=== PATIENT | female | born 1980 | race Caucasian/White ===

== ENCOUNTER → 2017-04-14 | Outpatient (CLI) | payer OTHER ==
[2016-05-05 13:43] VITALS: BP 132/90
[~2017-04-14] MED LIST: CETI10CA PO; CHOL500050 PO; CLON1TAB PO; CYCL10TA2 PO; DIAZ2TAB PO; DULO60CA6 PO; FOLI1TAB6 PO; IOHEXOL 180 MG/ML 10 ML VIAL. ONE; NAPR220C4 PO; OXYC-323 PO; OXYC5CAP3 PO; PANT40TA3 PO; PARO40TA45 PO; TIZA4CAP3 PO; TRAZ100T12 PO; TROS20TA2 PO; VENL75CA PO; ZOLP5TAB PO; methylPREDNISolone ACETATE 40 MG/ML VIAL. ONE; methylPREDNISolone ACETATE 80 MG/ML VIAL. ONE
--- NOTE | 2017-04-14 14:49 | PAIN ---
DATE OF SERVICE: 04/14/2017 PROGRESS NOTE FOR PAIN CLINIC DIAGNOSES: Lumbar radiculopathy with post-lumbar laminectomy syndrome. HISTORY OF PRESENT ILLNESS: The patient is a 36-year-old female, who returns for followup, last seen 11/19/2016. The patient had undergone caudal epidural steroid injection at that time with very good results about 75% improvement till the last 3-4 weeks. Pain is beginning to return in the low back and into the bilateral lower extremities, somewhat worse on the right than the left, also some pain in the base of the neck and left shoulder radiating to the posterior shoulder, arm to the elbow on the left side posteriorly. The patient reports this has been secondary has not been the result of any specific injury or action that she is aware of. Pain in the low back is her primary complaint, is sharp and tight shooting pain with constant aching pain, increasing with recent rainy weather that we had. No new motor or sensory deficits, no new bowel or bladder incontinence or other complaints. PHYSICAL EXAMINATION: VITAL SIGNS: The patient's blood pressure 126/94, pulse 81, respirations are 18, temperature 98.6 degrees Fahrenheit, height is 5 feet 7 inches, weighs 171 pounds. GENERAL: The patient is awake, alert, oriented, appropriate, very pleasant demeanor. HEENT: Head is normocephalic, atraumatic. Extraocular movements are intact and symmetrical. Oral cavity: Mucous membranes moist and pink. Dentition is intact. NECK: Shows anterior throat supple without palpable lymphadenopathy noted. Swallow reflex is symmetrical. CHEST: Shows normal on inspection. Breath sounds clear to auscultation bilaterally. HEART: Shows S1 and S2 clear. ABDOMEN: Soft, nontender, nondistended. No palpable organomegaly. No rebound or guarding demonstrated. BACK: Shows spine grossly midline. Normal appearing thoracic kyphosis. Some slight flattening of lumbar lordotic curvature. Well healed surgical scars noted in the lumbar distribution. Lumbar paraspinous muscle shows some moderate tenderness with palpation, but without radiation, without trigger points. No tenderness over the spinous processes, sacrum or sacroiliac regions. EXTREMITIES: Lower extremities show deep tendon reflexes at 2+ in the patellar and 1+ tendo calcaneus tendons. Motor exam is strong with 5/5 dorsiflexion, extension, quadriceps and hamstring flexion. Options were discussed with the patient and the patient's old chart was reviewed as her current medication regimen updated. Current review of systems updated today as well. We will proceed with the second Caudal approach epidural steroid injection with fluoroscopic guidance. Risks were again discussed including, but not limited to bleeding, infection, possibility of epidural hematoma, subsequent neurologic compromise, dural puncture, headaches, spinal cord and/or nerve damage, side effects of steroid medication and poor results regarding pain control. The patient understands and wishes to proceed. The patient will return to clinic in approximately 2 weeks for followup, was counseled on return appointment, activity level and side effects to be aware of. The patient also given refill of oxycodone and meloxicam and physical therapy ordered for her neck and left upper extremity. DIAGNOSES: Lumbar radiculopathy with post-lumbar laminectomy syndrome. PROCEDURE: Caudal approach epidural steroid injection using C-arm fluoroscopic guidance under sterile prep using local anesthetic. MEDICATION INJECTED: Depo-Medrol 120 mg plus 10 mL of preservative-free normal saline and 2 mL of Isovue contrast. CONDITION AT DISCHARGE: Stable. The patient tolerated procedure well, had no complications. LEE CA MD DR: ERIBERTO/arlen JOB#: [id number] / [id number]
== END | disposition home or self-care (01) ==
LOC: PNCL 13:09
PROVIDERS: ATTEND Anesthesiology
DX: M54.16 Radiculopathy, lumbar region (principal); M96.1 Postlaminectomy syndrome, not elsewhere classified; K21.9 Gastro-esophageal reflux disease without esophagitis; M19.90 Unspecified osteoarthritis, unspecified site; F41.9 Anxiety disorder, unspecified; Z87.440 Personal history of urinary (tract) infections; Z72.89 Other problems related to lifestyle
CPT/HCPCS: 62323; J1030; J1040

== ENCOUNTER 2017-10-16 17:01 | Emergency (ER) | payer OTHER ==
[~2017-10-16] VITALS: Ht 170.2 cm; Wt 74.8 kg
[~2017-10-16 17:01] MED LIST changes: -IOHEXOL 180 MG/ML 10 ML VIAL. ONE; +LORA10TA3 PO; +OXYC5CAP PO; -OXYC5CAP3 PO; -PARO40TA45 PO; +PARO40TA61 PO; -methylPREDNISolone ACETATE 40 MG/ML VIAL. ONE; -methylPREDNISolone ACETATE 80 MG/ML VIAL. ONE
[2017-10-16 17:15] VITALS: BP 145/84
[2017-10-16] MEDS ORDERED: LORazepam 1 MG TABLET PO ONE (17:30)
--- NOTE | 2017-10-16 17:34 | PHYS DOC ---
Past Medical History Past Medical History: Anxiety, Depression, Fibromyalgia, GERD Additional Past Medical Histor: DDD, Chronic Back Pain Past Surgical History: Cholecystectomy Additional Past Surgical Histo: back sx, ovarian cysts,exp. lap Alcohol Use: Occasionally Drug Use: None Adult General Chief Complaint Chief Complaint: LOWER BACK PAIN OR INJURY HPI HPI Patient is a 37 year old F who presents with increasing lower back pain and numbness and tingling to her growing. Patient also states she's having more difficulty starting urination and controlling her bowel movements. Patient states he symptoms have been progressive over the past week. Patient does have a history of chronic low back pain with no previous surgeries. Patient denies any fevers. Patient states she is weakness to her lower extremity is bilaterally. Patient denies any other symptoms. Review of Systems Review of Systems GEN: Denies fevers, chills, sweats HEENT: Denies blurred vision, sore throat CV: Denies chest pain RESP: Denies shortness of air, cough GI: Denies n/v/d NEURO: Denies confusion, dizziness MSK: Lower back pain All other systems were reviewed and found to be within normal limits, except as documented in this note. Current Medications Current Medications Current Medications Medications (Trade) Dose Ordered Sig/Dirk Start Time Stop Time Status Last Admin Dose Admin Acetaminophen/ Hydrocodone Bitart (Lortab 5/325) 1 tab 1X ONCE 10/16/17 20:15 10/16/17 20:16 DC 10/16/17 20:13 1 TAB Gadobutrol (Gadavist) 7.5 mmol 1X ONCE 10/16/17 19:15 10/16/17 19:16 DC 10/16/17 19:36 7.5 MMOL Lorazepam (Ativan) 2 mg 1X ONCE 10/16/17 17:30 10/16/17 17:31 DC 10/16/17 17:58 2 MG Allergies Allergies Allergies Coded Allergies Type Severity Reaction Last Updated Verified Penicillins Allergy Intermediate PALPITATIONS/HIVES 07/24/15 Yes Sulfa (Sulfonamide Antibiotics) Allergy Intermediate PALPITATIONS/HIVES Yes clarithromycin Allergy Intermediate palpitations/hives 08/11/14 Yes diphenhydramine Allergy Intermediate HEART RACES 02/28/16 Yes latex Allergy Intermediate Hives 08/11/14 No prochlorperazine edisylate Allergy Intermediate palpitaions/hives 08/11/14 Yes gabapentin Adverse Reaction Intermediate 11/19/16 Yes metaxalone Adverse Reaction Intermediate Palpitations 11/19/16 Yes pregabalin Adverse Reaction Intermediate Palpitations 11/19/16 Yes Physical Exam Physical Exam GEN.: No apparent distress. Alert and oriented. HEENT: Head is normocephalic, atraumatic NECK: Supple. LUNGS: CTAB. HEART: RRR, S1, S2 present. Peripheral pulses intact ABDOMEN: Soft, nontender. Positive bowel sounds. EXTREMITIES: Without any cyanosis. NEUROLOGIC: Normal speech, normal tone, numbness and tingling to the inner thighs bilaterally, muscle strength 4/5 to lower extremity bilaterally, good patellar reflexes bilaterally, straight leg raise bilaterally approximately 45 produces lower back pain, patient has good dorsi and plantar flexion with a good dorsal pedis pulse bilaterally PSYCHIATRIC: Normal affect, normal mood. SKIN: No ulcerations Current Patient Data Vital Signs Vital Signs Date Time Temp Pulse Resp B/P (MAP) Pulse Ox O2 Delivery O2 Flow Rate FiO2 10/16/17 20:13 16 98 Room Air 10/16/17 17:15 98.5 76 145/84 (104) 98.5 EKG EKG [] Radiology/Procedures Radiology/Procedures MRI L-spine: IMPRESSION: 1. Degenerative disc disease at L4-L5 and L5-S1 causing moderate bilateral neuroforamina narrowing at L5-S1 with suggestion of left sided L5-S1 disc protrusion abutting/impinging the traversing left S1 nerve. Clinically correlate for neurologic symptoms in this distribution. 2. No evidence of epidural abscess.[] Course & Med Decision Making Course & Med Decision Making Pertinent Labs and Imaging studies reviewed. (See chart for details) ED course: Patient was seen and examined emergency room MRI of the L-spine was ordered Patient is reexamined and updated on results of MRI 2109: Discussed CC/HP/PMH with Dr. Hawkins's [employer] Jazmine and recommends follow-up and steroids MDM: After reviewing the chart, CC/HPI/PMH, physical exam, [radiological results], I do not believe the patient has a emergent spinal cord condition warranting further workup and/or admission at this time. I do not believe the patient has spinal epidural abscess or cauda equina syndrome. On reexamination patient's feeling better and like to go home. Patient will follow-up with neurosurgery and call the office on Thursday. Additional verbal discharge instructions were provided to the patient and that if symptoms get worse or any new symptoms arise that are worrisome to the patient she is to return to the emergency room immediately [] Dragon Disclaimer Dragon Disclaimer This electronic medical record was generated, in whole or in part, using a voice recognition dictation system. Departure Departure Impression: Primary Impression: Sciatica Additional Impression: Lower back pain Disposition: HOME, SELF-CARE Condition: IMPROVED Referrals: DARRICK MENDEZ MD (PCP) BARTOLO HAWKINS MD Call the office on Thursday Patient Instructions: Back Pain in Additional Instructions: Please follow-up with Dr. Jj and call the office on Thursday Scripts Prednisone (PREDNISONE) 50 Mg Tablet 1 TAB PO DAILY for 5 Days, #5 TAB Prov: TOÑA VILLALOBOS DO 10/16/17 Problem Qualifiers TOÑA VILLALOBOS DO Oct 16, 2017 17:34
[2017-10-16] MEDS ORDERED: GADOBUTROL 7.5 MMOL/7.5 ML VIAL IV ONE (19:15)
[2017-10-16] MEDS ORDERED: HYDROcodone/APAP 5/325MG 1 TAB TABLET PO ONE (20:15)
--- NOTE | 2017-10-16 20:27 | RAD ---
MRI lumbar spine without and with IV contrast INDICATION: Rule out spinal epidural abscess of cauda equina. Low back pain, left leg tingling, trouble with urination and bowels. TECHNIQUE: Axial and sagittal T1, axial and sagittal T2, sagittal STIR weighted image sequences were obtained without IV contrast. After infusion of 7.5 mL of gadolinium based contrast, axial and sagittal T1-weighted image sequences were obtained. COMPARISON: None FINDINGS: 5 lumbar vertebral bodies. Lumbar spine is in normal anatomic alignment. No compression deformities. There is intervertebral disc height loss at L4-L5, L5-S1 with endplate sclerosis and Modic type II changes. The conus ends at the level of T12 vertebral body and demonstrates no abnormal signal. No subdural or epidural fluid collection. Segmental analysis: L1-L2: No disc bulge or herniation. Mild bilateral significant facet arthropathy. No neuroforamina narrowing. L2-L3: No disc bulge or herniation. Mild bilateral facet arthropathy. No neuroforamina narrowing. L3-L4: No disc bulge or herniation. Mild bilateral facet arthropathy. No neuroforamina narrowing. L4-L5: Mild circumferential disc bulge indenting anterior thecal sac. Moderate bilateral facet arthropathy. No neuroforamina narrowing. L5-S1: Circumferential disc bulge with broad-based central disc protrusion indenting anterior thecal sac. Moderate right facet arthropathy. Moderate bilateral neuroforamina narrowing. The protruded disc abuts the traversing left S1 nerve (series 4 image 6). No abnormal enhancing lesions. IMPRESSION: 1. Degenerative disc disease at L4-L5 and L5-S1 causing moderate bilateral neuroforamina narrowing at L5-S1 with suggestion of left sided L5-S1 disc protrusion abutting/impinging the traversing left S1 nerve. Clinically correlate for neurologic symptoms in this distribution. 2. No evidence of epidural abscess. Electronically signed by: Aidan Brown DO (10/16/2017 8:24 PM) [facility]
[2017-10-16] MEDS ORDERED: PRED50TA PO (21:21)
== END 2017-10-16 21:35 | disposition home or self-care (01) ==
LOC: ER 17:01
DX: M54.42 Lumbago with sciatica, left side (principal); M54.41 Lumbago with sciatica, right side; G89.29 Other chronic pain; F41.9 Anxiety disorder, unspecified; F32.9 Major depressive disorder, single episode, unspecified; M79.7 Fibromyalgia; K21.9 Gastro-esophageal reflux disease without esophagitis; Z88.0 Allergy status to penicillin; Z90.49 Acquired absence of other specified parts of digestive tract; Z88.2 Allergy status to sulfonamides; Z88.1 Allergy status to other antibiotic agents; Z88.8 Allergy status to other drugs, medicaments and biological substances; Z91.040 Latex allergy status
CPT/HCPCS: 72158; 96374; 99284; A9585

== ENCOUNTER → 2017-10-27 | Outpatient (CLI) | payer OTHER ==
[2017-10-16 17:15] VITALS: BP 145/84
[~2017-10-27] MED LIST changes: +IOHEXOL 180 MG/ML 10 ML VIAL. ONE; +PRED50TA PO; +methylPREDNISolone ACETATE 40 MG/ML VIAL. ONE; +methylPREDNISolone ACETATE 80 MG/ML VIAL. ONE
--- NOTE | 2017-10-27 23:10 | PAIN ---
DATE OF SERVICE: 10/27/2017 PROGRESS NOTE FOR PAIN CLINIC DIAGNOSES: Lumbar radiculopathy with post-lumbar laminectomy syndrome. HISTORY OF PRESENT ILLNESS: The patient is a 37-year-old female who returns for followup status post previous caudal epidural steroid injections, most recently in March of this year had recent visit for evaluation and preauthorization for additional injections. The patient has obtained this now and reports that since she was here last, she has some significant pain in her low back and left lower extremity radiating from the low back and the posterior gluteus, posterior thigh, lower leg with burning and tingling into the left foot as well, tingling, burning, stabbing, radiating becoming more constant and tight. She did go to the Emergency Department on the 16 October and they did an MRI scan at that time showing degenerative disk disease at L4-L5 and L5-S1 causing moderate bilateral neural foraminal narrowing at L5-S1 with suggestion of left-sided L5-S1 disk protrusion abutting and impinging the traversing left S1 nerve. The patient has had increased pain as well as reports of difficulty controlling bladder and bowels with significant urgency with each since the pain has gotten worse and traveling more into the left leg. The patient reports no other changes. She reports her pain as 10 on a scale of 10 at its worst, 7-8 on average and is a 6 at its least and is a 7 today. The patient reports no other changes. PHYSICAL EXAMINATION: VITAL SIGNS: The patient's blood pressure is 134/105, pulse 101, respirations 18, temperature 98.6 degrees Fahrenheit, height is 5 feet 7 inches, weight is 169 pounds. GENERAL: The patient is awake, alert, oriented, appropriate, very pleasant demeanor. HEENT: Head shows normocephalic, atraumatic. Extraocular movements are intact, symmetrical. Oral cavity shows mucous membranes moist and pink. Dentition is intact. NECK: Shows anterior throat supple without palpable lymphadenopathy noted. Swallow reflex symmetrical. CHEST: Shows normal on inspection. Breath sounds are clear to auscultation bilaterally. HEART: Shows S1, S2 clear. No murmurs auscultated. ABDOMEN: Soft, nontender, nondistended. No palpable organomegaly. No rebound or guarding demonstrated. BACK: Shows spine grossly in the midline with well-healed surgical scarring noted in the lumbar distribution with some mild flattening lumbar lordotic curvature. Paraspinous musculature shows symmetrical with inspection. Tenderness with palpation bilaterally, but without significant radiation. The patient has good rotational motion of lumbar spine, both laterally as well as extension and flexion without significant pain reported. LOWER EXTREMITIES: Show deep tendon reflexes at 2+ in the patellar, 1+ tendo-calcaneus tendons are equal. Motor exam is strong with 5/5 dorsiflexion, extension, quadriceps and hamstring flexion are symmetrical. Peripheral pulses are 2+ posterior tibial and dorsalis pedis pulses. No peripheral edema is noted bilaterally. Options were discussed with the patient. The patient's old chart was reviewed as her current medication regimen updated. Current review of systems updated today as well. We will proceed with the caudal approach epidural steroid injections as the first in this series. Risks were again discussed including, but not limited to bleeding, infection, possibility of epidural hematoma and subsequent neurological compromise, dural punctures, headaches, spinal cord and/or nerve damage, side effects of steroid medication and poor results regarding pain control. The patient understands and wished to proceed. The patient will return to the clinic in approximately 2 weeks for followup. She was counseled to return appointment, activity level and side effects to be aware of. DIAGNOSES: Lumbar radiculopathy with post-lumbar laminectomy syndrome. PROCEDURE: Caudal approach epidural steroid injection using C-arm fluoroscopic guidance under sterile prep and drape using local anesthetic. MEDICATION INJECTED: A total of 120 mg Depo-Medrol plus 10 mL preservative-free normal saline and 2 mL of Isovue contrast. CONDITION AT DISCHARGE: Stable. The patient tolerated the procedure well, had no complications. LEE CA MD DR: ERIBERTO/arlen JOB#: [id number] / [id number]
== END ==
LOC: PNCL 13:11
PROVIDERS: ATTEND Anesthesiology
DX: M54.16 Radiculopathy, lumbar region (principal); M96.1 Postlaminectomy syndrome, not elsewhere classified; K21.9 Gastro-esophageal reflux disease without esophagitis; Z87.442 Personal history of urinary calculi; Z87.440 Personal history of urinary (tract) infections; M19.90 Unspecified osteoarthritis, unspecified site; F41.9 Anxiety disorder, unspecified
CPT/HCPCS: 62323; J1030; J1040

== ENCOUNTER → 2018-01-14 | Outpatient (CLI) | payer OTHER | END | disposition home or self-care (01) | LOC: PNCL 14:16 | DX: M54.16 Radiculopathy, lumbar region (principal) | CPT/HCPCS: 99212 ==

== ENCOUNTER → 2018-04-12 | Outpatient (CLI) | payer OTHER ==
[~2018-04-12] MED LIST changes: -CETI10CA PO; -CHOL500050 PO; -CLON1TAB PO; -CYCL10TA2 PO; -DIAZ2TAB PO; -DULO60CA6 PO; -FOLI1TAB6 PO; +IOHEXOL 180 MG/ML 10 ML VIAL.; -IOHEXOL 180 MG/ML 10 ML VIAL. ONE; -LORA10TA3 PO; -NAPR220C4 PO; -OXYC-323 PO; -OXYC5CAP PO; -PANT40TA3 PO; -PARO40TA61 PO; -PRED50TA PO; -TIZA4CAP3 PO; -TRAZ100T12 PO; -TROS20TA2 PO; -VENL75CA PO; -ZOLP5TAB PO; +methylPREDNISolone ACETATE 40 MG/ML VIAL.; -methylPREDNISolone ACETATE 40 MG/ML VIAL. ONE; +methylPREDNISolone ACETATE 80 MG/ML VIAL.; -methylPREDNISolone ACETATE 80 MG/ML VIAL. ONE
== END | disposition home or self-care (01) ==
LOC: PNCL 13:20
DX: M54.16 Radiculopathy, lumbar region (principal); M96.1 Postlaminectomy syndrome, not elsewhere classified; K21.9 Gastro-esophageal reflux disease without esophagitis; F41.9 Anxiety disorder, unspecified; Z87.442 Personal history of urinary calculi; Z87.440 Personal history of urinary (tract) infections; Z88.0 Allergy status to penicillin; Z88.1 Allergy status to other antibiotic agents; Z88.8 Allergy status to other drugs, medicaments and biological substances; Z91.040 Latex allergy status; Z88.6 Allergy status to analgesic agent; M79.7 Fibromyalgia; M19.90 Unspecified osteoarthritis, unspecified site; Z72.89 Other problems related to lifestyle; K08.409 Partial loss of teeth, unspecified cause, unspecified class; Z98.890 Other specified postprocedural states
CPT/HCPCS: 62323; J1030; J1040; Q9965

== ENCOUNTER → 2018-07-06 | Outpatient (CLI) | payer OTHER | END | disposition home or self-care (01) | LOC: PNCL 11:30 | DX: M54.16 Radiculopathy, lumbar region (principal); N18.9 Chronic kidney disease, unspecified; K21.9 Gastro-esophageal reflux disease without esophagitis; Z87.440 Personal history of urinary (tract) infections; Z90.49 Acquired absence of other specified parts of digestive tract | CPT/HCPCS: 99212 ==

== ENCOUNTER → 2018-07-08 | Outpatient (CLI) | payer OTHER | END | disposition home or self-care (01) | LOC: KCIC MRI 15:50 | DX: M50.122 Cervical disc disorder at C5-C6 level with radiculopathy (principal); Z88.0 Allergy status to penicillin; Z88.1 Allergy status to other antibiotic agents; F41.9 Anxiety disorder, unspecified; K21.9 Gastro-esophageal reflux disease without esophagitis; Z91.040 Latex allergy status; Z88.2 Allergy status to sulfonamides; Z88.8 Allergy status to other drugs, medicaments and biological substances; Z88.6 Allergy status to analgesic agent; Z87.442 Personal history of urinary calculi; Z87.440 Personal history of urinary (tract) infections; M19.90 Unspecified osteoarthritis, unspecified site; M79.7 Fibromyalgia; Z72.89 Other problems related to lifestyle; Z79.899 Other long term (current) drug therapy; Z90.49 Acquired absence of other specified parts of digestive tract | CPT/HCPCS: 72141 ==

== ENCOUNTER 2018-07-26 08:40 | Emergency (ER) | payer OTHER ==
[~2018-07-26] VITALS: Ht 170.2 cm; Wt 74.8 kg
[~2018-07-26 08:40] MED LIST changes: +CETI10CA PO; +CHOL500050 PO; +CLON1TAB PO; +CYCL10TA2 PO; +DIAZ2TAB PO; +DULO60CA6 PO; +FOLI1TAB6 PO; -IOHEXOL 180 MG/ML 10 ML VIAL.; +LORA10TA3 PO; +NAPR220C4 PO; +OXYC-323 PO; +OXYC5CAP PO; +PANT40TA3 PO; +PARO40TA61 PO; +PRED50TA PO; +TIZA4CAP3 PO; +TRAZ-86 PO; +TROS20TA2 PO; +VENL75CA PO; +ZOLP5TAB PO; -methylPREDNISolone ACETATE 40 MG/ML VIAL.; -methylPREDNISolone ACETATE 80 MG/ML VIAL.
--- NOTE | 2018-07-26 09:08 | PHYS DOC ---
Past Medical History Past Medical History: Anxiety, Depression, Fibromyalgia, GERD Additional Past Medical Histor: DDD, Chronic Back Pain Past Surgical History: Cholecystectomy Additional Past Surgical Histo: back sx, ovarian cysts,exp. lap Alcohol Use: Occasionally Drug Use: None Adult General Chief Complaint Chief Complaint: FLANK PAIN HPI HPI Patient is a 38-year-old female who presents to the emergency department for evaluation. She states that last night she felt that she had to urinate was unable to do so. She states that this morning she tried very hard to urinate but was unable to do so. She states that this morning she also awakened and was having some left-sided flank pain. She has not had any dysuria or gross hematuria, but she states in the past historically she has been prone to UTIs. She denies any vaginal bleeding or discharge, or concern for STDs. She states her LMP was about 3-1/2 weeks ago. She has not had any fevers or chills. She has not had similar symptoms to this in the past. Other than her regular medications she denies any new medications or [id number] medications. There are no alleviating, or exacerbating factors to her symptoms. Review of Systems Review of Systems Constitutional: Denies fever or chills [] Eyes: Denies change in visual acuity, redness, or eye pain [] HENT: Denies nasal congestion or sore throat [] Respiratory: Denies cough or shortness of breath [] Cardiovascular: The patient denies any shortness of breath, chest pain, palpitations, or orthopnea [] GI: Denies nausea, vomiting, bloody stools or diarrhea [] : Denies dysuria or hematuria. Reports that her vaginal area felt swollen today due to straining. [] Musculoskeletal: Denies back pain or joint pain [] Integument: Denies rash or skin lesions [] Neurologic: Denies headache, focal weakness or sensory changes [] Endocrine: Denies polyuria or polydipsia [] All other systems were reviewed and found to be within normal limits, except as documented in this note. Current Medications Current Medications Current Medications Medications (Trade) Dose Ordered Sig/Dirk Start Time Stop Time Status Last Admin Dose Admin Hydroxyzine Pamoate (Vistaril) 25 mg PRN Q6HRS PRN 07/26/18 11:00 07/26/18 11:15 25 MG Ketorolac Tromethamine (Toradol 30mg Vial) 30 mg 1X ONCE 07/26/18 09:15 07/26/18 09:16 DC 07/26/18 09:31 30 MG Methylprednisolone Sodium Succinate (SOLU-Medrol 125MG VIAL) 125 mg 1X ONCE 07/26/18 11:00 07/26/18 11:03 DC 07/26/18 11:00 125 MG Morphine Sulfate (Morphine Sulfate) 4 mg 1X ONCE 07/26/18 10:45 07/26/18 10:46 DC 07/26/18 10:52 4 MG Sodium Chloride 1,000 ml @ 1,000 mls/hr Q1H 07/26/18 09:15 07/26/18 10:14 DC 07/26/18 09:28 1,000 MLS/HR Tamsulosin HCl (Flomax) 0.4 mg 1X ONCE 07/26/18 10:45 07/26/18 10:46 DC 07/26/18 10:52 0.4 MG Allergies Allergies Allergies Coded Allergies Type Severity Reaction Last Updated Verified Penicillins Allergy Intermediate PALPITATIONS/HIVES 07/24/15 Yes Sulfa (Sulfonamide Antibiotics) Allergy Intermediate PALPITATIONS/HIVES Yes clarithromycin Allergy Intermediate palpitations/hives 08/11/14 Yes diphenhydramine Allergy Intermediate HEART RACES 02/28/16 Yes latex Allergy Intermediate Hives 08/11/14 No prochlorperazine edisylate Allergy Intermediate palpitaions/hives 08/11/14 Yes gabapentin Adverse Reaction Intermediate 11/19/16 Yes metaxalone Adverse Reaction Intermediate Palpitations 11/19/16 Yes pregabalin Adverse Reaction Intermediate Palpitations 11/19/16 Yes Physical Exam Physical Exam PHYSICAL EXAM: CONSTITUTIONAL: Well developed, well nourished HEAD: normocephalic, atraumatic EENT: PERRL, EOMI. Conjunctivae normal color, sclerae non-icteric; moist mucous membranes. NECK: Supple, non-tender; no meningismus. LUNGS: Lungs CTA, breathing even and unlabored. Normal air movement. HEART: Regular rate and rhythm, no murmur CHEST: No deformity; non-tender ABDOMEN: The abdomen is soft, there is mild tenderness to palpation diffusely in the left mid and lower abdomen as well as the suprapubic area, without rebound or guarding. Normal bowel sounds are present. The remainder the abdomen is soft and non-tender, no masses or bruits. EXTREM: Normal ROM; no deformity, no calf tenderness. Normal pulses palpable in all extremities. There is no pedal edema. SKIN: No rash; no diaphoresis NEURO: Alert; normal speech and cognition; CN's grossly intact; strength grossly intact without focal deficit. BACK: There is mild left-sided CVA TTP. GENITOURINARY: Normal external genitalia, without any evidence of edema or other abnormality. Inspection was performed in the presence of the patient's nurse, Stacy. Current Patient Data Vital Signs Vital Signs Date Time Temp Pulse Resp B/P (MAP) Pulse Ox O2 Delivery O2 Flow Rate FiO2 07/26/18 10:52 16 07/26/18 09:10 98.6 80 154/97 (116) 97 Room Air 98.6 Lab Values Laboratory Tests Test 07/26/18 09:12 07/26/18 09:22 07/26/18 10:15 Urine Collection Type Unknown Urine Color Yellow Urine Clarity Clear Urine pH 6.0 Urine Specific [place] 1.010 Urine Protein Negative mg/dL (NEG-TRACE) Urine Glucose (UA) Negative mg/dL (NEG) Urine Ketones (Stick) Negative mg/dL (NEG) Urine Blood Small (NEG) Urine Nitrite Negative (NEG) Urine Bilirubin Negative (NEG) Urine Urobilinogen Dipstick 0.2 mg/dL (0.2 mg/dL) Urine Leukocyte Esterase Negative (NEG) Urine RBC 1-2 /HPF (0-2) Urine WBC Occ /HPF (0-4) Urine Squamous Epithelial Cells Mod /LPF Urine Bacteria Few /HPF (0-FEW) Urine Mucus Mod /LPF POC Urine HCG, Qualitative Hcg negative (Negative) White Blood Count 9.0 x10^3/uL (4.0-11.0) Red Blood Count 4.44 x10^6/uL (3.50-5.40) Hemoglobin 13.8 g/dL (12.0-15.5) Hematocrit 40.4 % (36.0-47.0) Mean Corpuscular Volume 91 fL (79-100) Mean Corpuscular Hemoglobin 31 pg (25-35) Mean Corpuscular Hemoglobin Concent 34 g/dL (31-37) Red Cell Distribution Width 13.1 % (11.5-14.5) Platelet Count 299 x10^3/uL (140-400) Neutrophils (%) (Auto) 50 % (31-73) Lymphocytes (%) (Auto) 41 % (24-48) Monocytes (%) (Auto) 7 % (0-9) Eosinophils (%) (Auto) 1 % (0-3) Basophils (%) (Auto) 1 % (0-3) Neutrophils # (Auto) 4.5 x10^3uL (1.8-7.7) Lymphocytes # (Auto) 3.7 x10^3/uL (1.0-4.8) Monocytes # (Auto) 0.6 x10^3/uL (0.0-1.1) Eosinophils # (Auto) 0.1 x10^3/uL (0.0-0.7) Basophils # (Auto) 0.1 x10^3/uL (0.0-0.2) Sodium Level 139 mmol/L (136-145) Potassium Level 3.6 mmol/L (3.5-5.1) Chloride Level 103 mmol/L (98-107) Carbon Dioxide Level 27 mmol/L (21-32) Anion Gap 9 (6-14) Blood Urea Nitrogen 8 mg/dL (7-20) Creatinine 1.0 mg/dL (0.6-1.0) Estimated GFR (Cockcroft-Gault) 61.7 BUN/Creatinine Ratio 8 (6-20) Glucose Level 96 mg/dL (70-99) Calcium Level 9.1 mg/dL (8.5-10.1) Total Bilirubin 0.9 mg/dL (0.2-1.0) Aspartate Amino Transferase (AST) 26 U/L (15-37) Alanine Aminotransferase (ALT) 50 U/L (14-59) Alkaline Phosphatase 75 U/L (46-116) Total Protein 8.1 g/dL (6.4-8.2) Albumin 4.5 g/dL (3.4-5.0) Albumin/Globulin Ratio 1.3 (1.0-1.7) Lipase 249 U/L (73-393) Laboratory Tests 07/26/18 10:15 Laboratory Tests 07/26/18 10:15 EKG EKG [] Radiology/Procedures Radiology/Procedures [PROCEDURE: CT ABDOMEN PELVIS WO CONTRAST CT ABDOMEN PELVIS WO CONTRAST dated 07/26/2018 9:55 AM Indication: Pain.left flank pain prior scan sent. Comparison: 01/24/2016. Technique: Contiguous axial imaging of the abdomen and pelvis performed without the administration of intravenous contrast. One or more of the following individualized dose reduction techniques were utilized for this examination: 1. Automated exposure control 2. Adjustment of the mA and/or kV according to patient size 3. Use of iterative reconstruction technique Findings: Limited images of lung bases are clear. Heart size within normal limits. No pleural or pericardial effusion. Liver is of diffuse low density, compatible with fatty infiltration. No apparent mass. Biliary tree normal in caliber. The gallbladder is surgically absent. Spleen is normal in size. Pancreas, adrenal glands unremarkable. There is a 3 mm calcific stone at the left UVJ with mild proximal dilation of the left ureter and left pelvicalyceal system. No calcific stone within the substance of either kidney. No right ureteral stone or right hydronephrosis. Unopacified GI tract normal in caliber and contour. No focal bowel wall thickening. No inflammatory stranding in the mesentery. The appendix is normal in caliber. No ascites or lymphadenopathy. Abdominal aorta normal in caliber. Images of pelvis show nondistended urinary bladder. Uterus and adnexa are unremarkable. No free pelvic fluid or pelvic lymphadenopathy. Bone windows show no acute findings. Mild multilevel spondylosis. IMPRESSION: 1. There is a 3 mm calcific stone at the left UVJ with mild obstructive uropathy. 2. Mild fatty infiltration of the liver. 3. Status post cholecystectomy. ] Course & Med Decision Making Course & Med Decision Making Pertinent Labs and Imaging studies reviewed. (See chart for details) [11:45 AM: The patient's condition remained stable, she is feeling much better at this time. She did develop a rash after being given morphine, and was treated with antihistamines and a dose of steroids. I discussed test results, the need for close urology follow-up, straining her urine, and return precautions. Dragon Disclaimer Dragon Disclaimer This electronic medical record was generated, in whole or in part, using a voice recognition dictation system. Departure Departure Impression: Primary Impression: Renal stone Disposition: 01 HOME, SELF-CARE Condition: STABLE Referrals: NO PCP (PCP) Patient Instructions: Kidney Stones Additional Instructions: Ibuprofen 400-600 mg every 6 hours as needed for pain. Use the prescribed pain medication as needed for pain not controlled by ibuprofen. Strain your urine. If you find a kidney stone, bring it to your urology follow- up appointment, as this may help the urologist to determine what is causing the stone what you might be able to do to prevent this from happening in the future. Scripts Hydrocodone/Apap 5-325 (NORCO 5-325 TABLET) 1 Each Tablet 1-2 TAB PO Q4-6HRS, #20 TAB Prov: ALEX KEYS MD 07/26/18 Tamsulosin Hcl (FLOMAX) 0.4 Mg Cap.er.24h 0.4 MG PO DAILY for 14 Days, #14 TAB Prov: ALEX KEYS MD 07/26/18 ALEX KEYS MD Jul 26, 2018 09:08
[2018-07-26] MEDS ORDERED: IV NORMAL SALINE 1000ML BAG 1,000 ML IV SCH (09:15)
[2018-07-26] MEDS ORDERED: KETOROLAC 30 MG/ML VIAL. IV ONE (09:15)
[2018-07-26 09:45] LABS: BILIRUBIN,URINE NEGATIVE (NEG); CLARITY,URINE CLEAR; COLOR,URINE YELLOW; NITRITE,URINE NEGATIVE (NEG); PROTEIN,URINE NEGATIVE (NEG-TRACE); UROBILINOGEN,URINE 0.2 mg/dL (0.2 mg/dL)
[2018-07-26 10:10] LABS: BACTERIA,URINE FEW /HPF (0-FEW); SQUAMOUS EPITHELIAL CELL,UR MOD /LPF; WBC,URINE OCC /HPF (0-4)
--- NOTE | 2018-07-26 10:20 | RAD ---
CT ABDOMEN PELVIS WO CONTRAST dated 07/26/2018 9:55 AM Indication: Pain.left flank pain prior scan sent. Comparison: 01/24/2016. Technique: Contiguous axial imaging of the abdomen and pelvis performed without the administration of intravenous contrast. One or more of the following individualized dose reduction techniques were utilized for this examination: 1. Automated exposure control 2. Adjustment of the mA and/or kV according to patient size 3. Use of iterative reconstruction technique Findings: Limited images of lung bases are clear. Heart size within normal limits. No pleural or pericardial effusion. Liver is of diffuse low density, compatible with fatty infiltration. No apparent mass. Biliary tree normal in caliber. The gallbladder is surgically absent. Spleen is normal in size. Pancreas, adrenal glands unremarkable. There is a 3 mm calcific stone at the left UVJ with mild proximal dilation of the left ureter and left pelvicalyceal system. No calcific stone within the substance of either kidney. No right ureteral stone or right hydronephrosis. Unopacified GI tract normal in caliber and contour. No focal bowel wall thickening. No inflammatory stranding in the mesentery. The appendix is normal in caliber. No ascites or lymphadenopathy. Abdominal aorta normal in caliber. Images of pelvis show nondistended urinary bladder. Uterus and adnexa are unremarkable. No free pelvic fluid or pelvic lymphadenopathy. Bone windows show no acute findings. Mild multilevel spondylosis. IMPRESSION: 1. There is a 3 mm calcific stone at the left UVJ with mild obstructive uropathy. 2. Mild fatty infiltration of the liver. 3. Status post cholecystectomy. Electronically signed by: Frank Ball MD (07/26/2018 10:18 AM) [id number]
[2018-07-26 10:24] LABS: BASO # 0.1 x10^3/uL (0.0-0.2); BASO % 1 % (0-3); EOS # 0.1 x10^3/uL (0.0-0.7); EOS % 1 % (0-3); HEMATOCRIT 40.4 % (36.0-47.0); HEMOGLOBIN 13.8 g/dL (12.0-15.5); LYMPH # 3.7 x10^3/uL (1.0-4.8); LYMPH % 41 % (24-48); MEAN CORPUSCULAR HEMOGLOBIN 31 pg (25-35); MEAN CORPUSCULAR HGB CONC 34 g/dL (31-37); MEAN CORPUSCULAR VOLUME 91 fL (79-100); MONO # 0.6 x10^3/uL (0.0-1.1); MONO % 7 % (0-9); NEUT # 4.5 x10^3uL (1.8-7.7); NEUT % 50 % (31-73); PLATELET COUNT 299 x10^3/uL (140-400); RED BLOOD COUNT 4.44 x10^6/uL (3.50-5.40); RED CELL DISTRIBUTION WIDTH 13.1 % (11.5-14.5)
[2018-07-26 10:31] LABS: CALCIUM 9.1 mg/dL (8.5-10.1); GFR 61.7; POTASSIUM 3.6 mmol/L (3.5-5.1)
[2018-07-26 10:37] LABS: ALBUMIN 4.5 g/dL (3.4-5.0); ALBUMIN/GLOBULIN RATIO 1.3 (1.0-1.7); TOTAL BILIRUBIN 0.9 mg/dL (0.2-1.0); TOTAL PROTEIN 8.1 g/dL (6.4-8.2)
[2018-07-26] MEDS ORDERED: MORPHINE SULFATE 4 MG/ML VIAL. IV ONE (10:45)
[2018-07-26] MEDS ORDERED: TAMSULOSIN 0.4 MG CAP.ER.24H. PO ONE (10:45)
[2018-07-26 11:00] VITALS: BP 140/90
[2018-07-26] MEDS ORDERED: hydrOXYzine PAMOATE 25 MG CAPSULE PO PRN (11:00)
[2018-07-26] MEDS ORDERED: methylPREDNISolone SOD SUCC PF 125 MG/2 ML VIAL. IV ONE (11:00)
[2018-07-26] MEDS ORDERED: TAMS0.4C97 PO (11:50)
[2018-07-26] MEDS ORDERED: HYDR-971 PO (11:50)
== END 2018-07-26 11:55 | disposition home or self-care (01) ==
LOC: ER 08:40
DX: N20.0 Calculus of kidney (principal); K21.9 Gastro-esophageal reflux disease without esophagitis; Z90.49 Acquired absence of other specified parts of digestive tract; Z88.0 Allergy status to penicillin; Z88.1 Allergy status to other antibiotic agents; Z88.2 Allergy status to sulfonamides; Z91.040 Latex allergy status
CPT/HCPCS: 36415; 74176; 80053; 81001; 81025; 83690; 85025; 96374; 96375; 99285; J1885; J2270; J2930; J7030; Q0177

== ENCOUNTER → 2018-08-04 | Outpatient (CLI) | payer OTHER ==
[2018-07-26 11:00] VITALS: BP 140/90
[~2018-08-04] MED LIST changes: +HYDR-971 PO; +TAMS0.4C97 PO
--- NOTE | 2018-08-04 20:04 | PAIN ---
DATE OF SERVICE: 08/04/2018 DIAGNOSES: Lumbar radiculopathy with lumbar post-laminectomy syndrome. HISTORY OF PRESENT ILLNESS: The patient is a 38-year-old female who returns for followup status post lumbar caudal approach epidural steroid injection with very good results. The patient was approved today for another injection; however, she has had a kidney stone she is passing and has passed several in the last week or so with significant pain in the flank and low back and the left side. The patient reports it is getting better, but still has significant pain, does not feel up to taking a shot today. The patient reports the pain is in the low back itself radiating in the posterior left hip, left posterior gluteus, posterior thigh to the ankle on the left side as well across the low back. The patient reports it is a 10 on a scale of 10 at its worst, 8-9 on average, 7 at its least and is a 9 today. The patient reports it is stabbing, radiating, constant, becoming more severe, aching, sharp, tight, shooting. Would like to get an injection, but not today. She is feeling very much under the weather with her recent ongoing flank pain on the left. The patient reports she was increasing distance walking, able to do household activities with greater ease and comfort in the past after the last injection, but is returning mostly in a radicular pattern and across the low back on the left side. The patient reports no new motor or sensory deficits, no new bowel or bladder incontinence or other complaints. PHYSICAL EXAMINATION: VITAL SIGNS: The patient's blood pressure 128/91, pulse 80, respirations 16, temperature is 98.2 degrees Fahrenheit, height is 5 feet 7 inches and weight is 167 pounds. GENERAL: The patient is awake, alert, oriented, appropriate, very pleasant demeanor. HEENT: Head shows normocephalic, atraumatic. Extraocular movements intact and symmetrical. Oral cavity: Mucous membranes moist and pink. Dentition is intact. NECK: Shows anterior throat supple without palpable lymphadenopathy noted. Swallow reflex is symmetrical. CHEST: Shows normal on inspection. Breath sounds clear to auscultation bilaterally. HEART: Shows S1 and S2 clear. No murmurs auscultated. ABDOMEN: Soft, nontender, nondistended. No palpable organomegaly is noted. No rebound or guarding demonstrated. BACK: Shows spine grossly in the midline. Normal appearing thoracic kyphosis and lumbar lordotic curvature is slightly flattened with well-healed surgical scarring noted. Lumbar paraspinous musculature shows symmetrical on inspection, on palpation shows some moderate tenderness but only diffusely in the low lumbar distribution without radiation. The patient has good rotational motion both laterally as well as extension and flexion without difficulty. EXTREMITIES: Lower extremities show deep tendon reflexes 2+ in the patellar, 1+ tendo calcaneus tendons. Motor exam is strong with 5/5 dorsiflexion, extension and equal. Peripheral pulses are 1+ posterior tibial. No peripheral edema is noted. Options were discussed with the patient. The patient's old chart was reviewed as his current medication regimen and updated. Current review of systems is updated today as well and we will proceed withholding on any further injections at this time until her kidney stones have passed. The patient will return to clinic in approximately 1 week. We will plan on caudal epidural steroid injection at that time. LEE CA MD DR: ERIBERTO/arlen JOB#: [id number] / [id number]
== END | disposition home or self-care (01) ==
LOC: PNCL 11:40
PROVIDERS: ATTEND Anesthesiology
DX: M54.16 Radiculopathy, lumbar region (principal); M96.1 Postlaminectomy syndrome, not elsewhere classified; I12.9 Hypertensive chronic kidney disease with stage 1 through stage 4 chronic kidney disease, or unspecified chronic kidney disease; N18.9 Chronic kidney disease, unspecified; K21.9 Gastro-esophageal reflux disease without esophagitis; Z87.440 Personal history of urinary (tract) infections; Z90.49 Acquired absence of other specified parts of digestive tract; Z88.0 Allergy status to penicillin; Z88.2 Allergy status to sulfonamides; Z88.1 Allergy status to other antibiotic agents; Z88.8 Allergy status to other drugs, medicaments and biological substances
CPT/HCPCS: 99212

== ENCOUNTER → 2018-08-18 | Outpatient (CLI) | payer OTHER ==
[2018-07-26 11:00] VITALS: BP 140/90
[~2018-08-18] MED LIST changes: +IOHEXOL 180 MG/ML 10 ML VIAL. ONE; +LIDOCAINE 2% PF 2ML VIAL. ONE; +methylPREDNISolone ACETATE 40 MG/ML VIAL. ONE; +methylPREDNISolone ACETATE 80 MG/ML VIAL. ONE
--- NOTE | 2018-08-18 13:01 | PAIN ---
DATE OF SERVICE: 08/18/2018 PROGRESS NOTE FOR PAIN CLINIC DIAGNOSIS: Lumbar radiculopathy with post-lumbar laminectomy syndrome. HISTORY OF PRESENT ILLNESS: The patient is a 38-year-old female who returns for followup status post caudal epidural steroid injection x 1 on 04/12/2018. The patient did very well with this with return of pain; however, in the last visit, she was having a kidney stone passed and was not in any condition to have an injection at that day. As it since passed and is doing well, the patient has had a followup CT scan showing no residual kidney stone, but she still has some flank and back pain, also pain in the low back, radiating into the posterior gluteus, posterior thigh, posterior lower leg. The patient reports that the pain is a 10 on a scale of 10 now, however it averages at 8, least is a 7 and greatest is a 10 and is a 7 today. The patient reports it is sharp, tight, shooting, tingling, burning, stabbing, radiating, becoming more constant, more severe, worse with walking, standing, changing positions, putting weight on her left lower extremity. The patient reports no new motor or sensory deficits, no new bowel or bladder incontinence or other complaints, but still significant pain in the low back and left leg as noted. The patient reports it does not awaken her from sleep at night, much better with sitting or lying down, but worse with standing and walking. PHYSICAL EXAMINATION: VITAL SIGNS: The patient's blood pressure is 180/90, pulse is 105, respirations 18, temperature 98.6 degrees Fahrenheit, height 5 feet 7 inches and weight is 169 pounds. GENERAL: The patient is awake, alert, oriented, appropriate, very pleasant demeanor. HEENT: Head shows normocephalic, atraumatic. Extraocular movements are intact and symmetrical. Oral cavity: Mucous membranes are moist and pink. Dentition is intact. NECK: Shows anterior throat supple without palpable lymphadenopathy noted. Swallow reflex is symmetrical. CHEST: Shows normal on inspection. Breath sounds are clear to auscultation bilaterally. HEART: Shows S1, S2 clear. No murmurs auscultated. ABDOMEN: Soft, nontender, nondistended. No palpable organomegaly is noted. No rebound or guarding demonstrated. BACK: Shows spine grossly in the midline. Some slight flattening of lumbar lordotic curvature with well-healed surgical scar noted. Lumbar paraspinous muscle shows symmetrical on inspection, on palpation shows some moderate tenderness but only diffusely with palpation bilaterally. The patient shows no difficulty with rotational motion, both laterally as well as extension and flexion of lumbar spine without significant difficulty. EXTREMITIES: Lower extremities show deep tendon reflexes 2+ in the patellar and 1+ tendo calcaneus tendons, are equal. Motor exam is strong with 5/5 dorsiflexion, extension, quadriceps and hamstring flexion and are symmetrical as well. Peripheral pulses are 1+ posterior tibia. No peripheral edema is noted bilaterally. Options were discussed with the patient. The patient's old chart was reviewed as her current medication regimen updated. Current review of systems updated today as well. We will proceed with a caudal approach epidural steroid injection today, it is the second in this series with fluoroscopic guidance. Risks were then discussed including, but not limited to bleeding, infection, possibility of epidural hematoma, subsequent neurologic compromise, dural puncture, headaches, spinal cord and/or nerve damage, side effects of steroid medication and poor results regarding pain control. The patient understands and wished to proceed. The patient will return to the clinic in approximately 2 weeks for followup, was counseled on return appointment, activity level and side effects to be aware of. DIAGNOSIS: Lumbar radiculopathy with post-lumbar laminectomy syndrome. PROCEDURE: Lumbar epidural steroid injection, caudal approach using C-arm fluoroscopic guidance under sterile prep and drape using local anesthetic. MEDICATION INJECTED: A total of 120 mg Depo-Medrol plus 10 mL of preservative-free normal saline and 2 mL of Isovue for contrast. CONDITION AT DISCHARGE: Stable. The patient tolerated the procedure well, had no complications. LEE CA MD DR: ERIBERTO/arlen JOB#: [id number] / [id number]
== END | disposition home or self-care (01) ==
LOC: PNCL 11:04
PROVIDERS: ATTEND Anesthesiology
DX: M54.16 Radiculopathy, lumbar region (principal); M96.1 Postlaminectomy syndrome, not elsewhere classified; Z88.0 Allergy status to penicillin; Z88.1 Allergy status to other antibiotic agents; Z88.2 Allergy status to sulfonamides; Z88.8 Allergy status to other drugs, medicaments and biological substances; Z91.040 Latex allergy status
CPT/HCPCS: 62323; J1030; J1040; J2001; Q9965

== ENCOUNTER → 2018-12-14 | Outpatient (CLI) | payer OTHER ==
[~2018-12-14] MED LIST changes: +DOCU-109 PO; +DULO30CA2 PO; +ESOM40CA PO; +HYDR-2765 PO; +HYDR-3164 PO; -HYDR-971 PO; -IOHEXOL 180 MG/ML 10 ML VIAL. ONE; -LIDOCAINE 2% PF 2ML VIAL. ONE; +OXYB10TA PO; -OXYC-323 PO; +OXYC1TAB15 PO; -PANT40TA3 PO; +PANT40TA77 PO; +PARO10TA57 PO; +SUCR1TAB35 PO; -methylPREDNISolone ACETATE 40 MG/ML VIAL. ONE; -methylPREDNISolone ACETATE 80 MG/ML VIAL. ONE
--- NOTE | 2018-12-14 14:52 | PAIN ---
DATE OF SERVICE: 12/14/2018 PROGRESS NOTE FOR PAIN CLINIC DIAGNOSES: Lumbar radiculopathy with post-lumbar laminectomy syndrome. HISTORY OF PRESENT ILLNESS: The patient is a 38-year-old female who returns for followup status post caudal approach epidural steroid injection in 08/18/2018. She did very well, had about 75% improvement in the low back and bilateral lower extremities. The patient reports her left leg was hurting more at that time. Now, the right leg is more noticeable, still pain radiating to posterior gluteus, posterior thighs, posterior calf, again worse on the right side than the left at this time and into the low back itself. The patient reports it is aching, sharp, tight, shooting, dull, stabbing, radiating, burning, tingling, getting more constant and more severe. She reports she is increasing her activity with greater ease and comfort during walking activities with greater distances, household activities as well, sleeping better at night. Now, the pain is beginning to awaken her again especially when she lays on her right side. The patient reports her pain is 10+ on a scale of 10 at its worst, 8 on average, 7 at its least and is an 8 today. The patient reports no new motor or sensory deficits. She continues to do physical therapy on her own, stretching and strengthening exercises and again trying to walk every day, although it is becoming more difficult with the pain increasing. The patient reports no new motor or sensory deficits, no bowel or bladder incontinence or other complaints. PHYSICAL EXAMINATION: VITAL SIGNS: The patient's blood pressure 132/99, pulse 105, respirations 18, temperature is 98.1 degrees Fahrenheit. Height is 5 feet 7 inches, weight is 167 pounds. GENERAL: The patient is awake, alert, oriented, appropriate, very pleasant demeanor. HEENT: Head shows normocephalic, atraumatic. Extraocular movements intact and symmetrical. Oral cavity, mucous membranes are moist and pink. Dentition intact. NECK: Shows anterior throat supple without palpable lymphadenopathy noted. Swallow reflex is symmetrical. CHEST: Shows normal with inspection. Breath sounds clear to auscultation bilaterally. HEART: Shows S1, S2 clear. No murmurs auscultated. ABDOMEN: Soft, nontender, nondistended. No palpable organomegaly is noted. No rebound or guarding demonstrated. BACK: Shows spine grossly in the midline, normal-appearing thoracic kyphosis, some minor flattening of lumbar lordotic curvature. Well-healed surgical scar noted in the lumbar distribution. Lumbar paraspinous muscle shows symmetrical on inspection, on palpation shows some moderate tenderness throughout the upper, middle, lower distribution of the paraspinous musculature bilaterally, but only diffusely, slightly more on the right in the inferior aspect of the lumbar paraspinous muscles. No tenderness over the spinous processes, sacrum or sacroiliac regions. The patient shows good rotational motion of the lumbar spine, both laterally as well as extension and flexion without significant difficulty. EXTREMITIES: The patient lower extremities show deep tendon reflexes at 2+ in the patellar and 1+ tendo calcaneus tendons. Motor exam is strong with 5/5 dorsiflexion, extension, quadriceps and hamstring flexion. The patient does have a mild straight leg raise on the right side about 40-45 degrees, but decreased with knee flexion, left side is negative on exam today. The patient is able to stand, stand on her toes without significant difficulty, not using any assistive devices to walk currently. PLAN: Options were discussed with the patient. The patient's old chart was reviewed as well as her current medication regimen updated. Current review of systems updated today as well. We will preauthorize the patient for a second or additional caudal epidural steroid injection as she done very well with the last injection about 75% improvement from the first looks like 3-1/2 months. The patient now with radicular pain into the right lower extremity greater than the left at L5-S1 dermatomal distribution, we will preauthorize the patient for an L5-S1 level via caudal approach for her next visit. The patient was given Medrol Dosepak as well, was given instruction as well as side effects to be aware of. We will refill on her oxycodone with instructions and side effects to be aware of with this as well. LEE CA MD DR: ERIBERTO/arlen JOB#: [id number] / [id number]
== END | disposition home or self-care (01) ==
LOC: PNCL 13:01
PROVIDERS: ATTEND Anesthesiology
DX: M54.16 Radiculopathy, lumbar region (principal); M96.1 Postlaminectomy syndrome, not elsewhere classified
CPT/HCPCS: G0463

== ENCOUNTER → 2019-01-03 | Outpatient (CLI) | payer OTHER ==
[~2019-01-03] MED LIST changes: +IOHEXOL 180 MG/ML 10 ML VIAL. ONE; +methylPREDNISolone ACETATE 40 MG/ML VIAL. ONE; +methylPREDNISolone ACETATE 80 MG/ML VIAL. ONE
--- NOTE | 2019-01-03 20:13 | PAIN ---
DATE OF SERVICE: 01/03/2019 DIAGNOSES: Lumbar radiculopathy with post-lumbar laminectomy syndrome. HISTORY OF PRESENT ILLNESS: The patient is a 38-year-old female who returns for followup status post caudal epidural steroid injections in the past, most recently was on 08/18/2018. The patient did very well after the last injection about 75% improvement. The pain returned and it got significantly increased over the last weekend as she was waiting for preauthorization from her insurance provider, which she has obtained now and still has pain in the low back radiating to posterior gluteus on the right greater than the left, but in both lower extremities, posterior gluteus, posterior thighs, posterior calves to the ankles. Describes as aching, sharp, tight, shooting, stabbing, burning, tingling, constant, radiating becoming more severe, more unbearable with time and with activity. The patient reports no new motor or sensory deficits, reports the pain is a 10 on a scale of 10 at its worst, 10 on average, 8 at its least and is 8 today. The patient reports no bowel or bladder incontinence or other complaints, wakes her from sleep every 3 to 4 hours especially over the last few days. The patient reports no other changes. PHYSICAL EXAMINATION: VITAL SIGNS: The patient's blood pressure 131/95, pulse 101, respirations 18, temperature 98.4 degrees Fahrenheit, height is 5 feet 7 inches, weight is 169 pounds. GENERAL: The patient is awake, alert, oriented, appropriate, very pleasant demeanor. HEENT: Head shows normocephalic, atraumatic. Extraocular movements are intact and symmetrical. Oral cavity shows mucous membranes moist and pink. Dentition is intact. NECK: Shows anterior throat supple without palpable lymphadenopathy noted. Swallow reflex symmetrical. CHEST: Shows normal with inspection. Breath sounds are clear to auscultation bilaterally. HEART: Shows S1, S2 clear. No murmurs auscultated. ABDOMEN: Soft, nontender, nondistended. No palpable organomegaly is noted. No rebound or guarding demonstrated. BACK: Shows spine grossly in the midline. The patient's thoracic kyphosis is normal on inspection. Some minor flattening of lumbar lordotic curvature. Well-healed surgical scar in the lumbar distribution. Lumbar paraspinous muscle shows symmetrical on inspection and palpation shows some moderate tenderness bilaterally, but only diffusely without any specific radiation. The patient has good rotational motion of lumbar spine laterally greater than 10 degrees right and left in extension greater than 10 degrees as well as forward flexion 45 degrees without significant increase in pain. EXTREMITIES: The patient's lower extremities show deep tendon reflexes 2+ patellar tendons, 1+ tendo calcaneus tendons. Motor exam is 5/5 with dorsiflexion, extension, quadriceps and hamstring flexion and is equal bilaterally. Peripheral pulses are 1+. No peripheral edema is noted in either of the lower extremities. Options were discussed with the patient. The patient's old chart was reviewed as her current medication regimen updated. Current review of systems updated today as well. We will proceed with a first in this series caudal approach epidural steroid injection under fluoroscopic guidance. Risks were again discussed including, but not limited to bleeding, infection, possibility of epidural hematoma and subsequent neurological compromise, dural puncture, headaches, spinal cord and/or nerve damage, side effects of steroid medication and poor results regarding pain control. The patient understands and wished to proceed. The patient to return to clinic in approximately 2 weeks for followup. She was counseled on return appointment, activity level and side effects to be aware of. DIAGNOSIS: Lumbar radiculopathy with post-lumbar laminectomy syndrome. PROCEDURE: Lumbar epidural steroid injection, caudal approach using C-arm fluoroscopic guidance under sterile prep and drape using local anesthetic. MEDICATION INJECTED: A total of 120 mg Depo-Medrol plus 10 mL of preservative-free normal saline and 2 mL of Isovue for contrast. CONDITION AT DISCHARGE: Stable. The patient tolerated procedure well and had no complications. LEE CA MD DR: ERIBERTO/arlen JOB#: [id number] / [id number]
== END | disposition home or self-care (01) ==
LOC: PNCL 13:27
PROVIDERS: ATTEND Anesthesiology
DX: M54.16 Radiculopathy, lumbar region (principal); M96.1 Postlaminectomy syndrome, not elsewhere classified; Z88.0 Allergy status to penicillin; Z88.2 Allergy status to sulfonamides; Z88.1 Allergy status to other antibiotic agents; Z91.040 Latex allergy status; Z88.8 Allergy status to other drugs, medicaments and biological substances
CPT/HCPCS: 62323; J1030; J1040; Q9965

== ENCOUNTER → 2019-02-21 | Outpatient (CLI) | payer OTHER ==
[~2019-02-21] MED LIST changes: -IOHEXOL 180 MG/ML 10 ML VIAL. ONE; +PANT40TA3 PO; -PANT40TA77 PO; -methylPREDNISolone ACETATE 40 MG/ML VIAL. ONE; -methylPREDNISolone ACETATE 80 MG/ML VIAL. ONE
--- NOTE | 2019-02-21 20:34 | PAIN ---
DATE OF SERVICE: 02/21/2019 DIAGNOSES: Lumbar radiculopathy with lumbar post-laminectomy syndrome. HISTORY OF PRESENT ILLNESS: The patient is a 38-year-old female who returns for followup status post caudal approach epidural steroid injection x 1. The patient reports about 60% improvement overall after the last injection and has done quite well. It has been over a month since she has been here, has been almost 6 weeks actually, did well for about the first 4 weeks or so, the pain is returning now in the low back and right lower extremity, posterior gluteus, posterior thigh, posterior calf, radiating to the foot, worse with walking, standing, change in position. The patient reports the pain is 10 on a scale of 10 at its worst, 8 on average, 7 at its least and is 7 today. The patient reports tingling, stabbing, sharp, tight across the low back into the right posterior gluteus with a shooting pain more radiating in the leg, is becoming more constant and severe, again worse with ambulation, standing and walking. The patient reports it is better with sitting or lying down, but does awaken her from sleep about every 4-5 hours a night. The patient reports she initially increased her distance walking, doing better activity with household activities, traveling with greater ease and comfort, especially during the first 4 weeks or so. The patient reports now the pain returned over the past 2 weeks as described. The patient reports no new motor or sensory deficits, no new bowel or bladder incontinence or other complaints. PHYSICAL EXAMINATION: VITAL SIGNS: The patient's blood pressure 135/98, pulse 103, respirations 16, temperature 98.9 degrees Fahrenheit, height is 5 feet 7 inches, weight is 168 pounds. GENERAL: The patient is awake, alert, oriented, appropriate, very pleasant demeanor. HEENT: Head is normocephalic, atraumatic. Extraocular movements are intact and symmetrical. Oral cavity, mucous membranes are moist and pink. Dentition is intact. NECK: Shows anterior throat supple without palpable lymphadenopathy noted. Swallow reflex is symmetrical. CHEST: Shows normal with inspection. Breath sounds are clear to auscultation bilaterally. HEART: Shows S1, S2 clear. No murmurs auscultated. ABDOMEN: Soft, nontender, nondistended. No palpable organomegaly is noted. BACK: Shows spine grossly in the midline. Slight exaggeration of thoracic kyphosis and minor flattening of lumbar lordotic curvature. Well-healed surgical lumbar scar noted. Lumbar paraspinous muscle shows symmetrical on inspection, on palpation shows some moderate tenderness diffusely in the low lumbar distribution, but only diffusely without significant radiation. The patient has good rotational motion of lumbar spine, both laterally as well as extension and flexion without difficulty. EXTREMITIES: The patient's lower extremities show deep tendon reflexes at 2+ in patellar, 1+ tendo-calcaneus tendons. Motor exam is strong with dorsiflexion, extension rated at 5/5, quadriceps and hamstring flexion is symmetrical. The patient does have a mild straight leg raise on the right at about 40-45 degrees, decreased with knee flexion, left side is negative. Peripheral pulses are 1+ posterior tibia. No peripheral edema is noted bilaterally. Options were discussed with the patient. The patient's old chart was reviewed as was her current medication regimen updated. Current review of systems updated today as well. We will preauthorize the patient for a second lumbar epidural steroid injection with fluoroscopic guidance as she has done quite well, about 60% improvement after the first injection for the first 4 weeks or so, still with the radicular pain in the L5-S1 dermatomal distribution for a caudal approach epidural steroid injection and she did well with this on the last visit. 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 The patient will follow up once the MRI scan is completed and we will wait for preauthorization on second caudal approach lumbar epidural steroid injection and proceed at that time. The patient was given a Medrol Dosepak with instructions and side effects to be aware of. Also, Valium 1 tablet 10 mg for the MRI scan for premedication and refill the medication of oxycodone 7.5 mg 75 tablets with instructions and side effects to be aware of discussed as well. LEE CA MD DR: ERIBERTO/arlen JOB#: [id number] / [id number]
== END | disposition home or self-care (01) ==
LOC: PNCL 13:48
PROVIDERS: ATTEND Anesthesiology
DX: M54.16 Radiculopathy, lumbar region (principal); M96.1 Postlaminectomy syndrome, not elsewhere classified
CPT/HCPCS: G0463

== ENCOUNTER → 2019-02-22 | Outpatient (CLI) | payer OTHER ==
[~2019-02-22] MED LIST changes: +GADOBUTROL 7.5 MMOL/7.5 ML VIAL IV ONE
--- NOTE | 2019-02-22 11:09 | KCIC ---
EXAMINATION: Magnetic resonance imaging (MRI) of the lumbar spine with and without contrast 02/22/2019 10:15 AM HISTORY: Low back pain. TECHNIQUE: Multiplanar multi-weighted MRI of the lumbar spine was performed with and without intravenous contrast using the standard lumbar spine protocol. Contrast information: 7 cc gadolinium based contrast. COMPARISON: MRI lumbar spine 10/16/2017 FINDINGS: The alignment of the lumbar spine is normal. Vertebral bodies demonstrate normal signal intensity on all sequences. There are no compression fractures. The conus medullaris terminates at the level of L1. The distal spinal cord signal intensity is normal. There is moderate disc height loss at L4-L5 and mild disc height loss at L5-S1 with associated disc desiccation and annular fissures. Modic type II endplate degenerative changes are identified at L4-L5. There is edema within the disc space at L4-L5. Limited views of the abdomen and pelvis show no soft tissue abnormality. The aorta is normal. L3-L4: There is mild disc bulge. There is no facet arthropathy. There is no neuroforaminal stenosis. There is no spinal canal stenosis. L4-L5: There is a mild circumferential disc bulge asymmetric to the left. There is moderate left and mild right facet arthropathy. There is mild bilateral, left greater than right, neuroforaminal stenosis. There is no spinal canal stenosis with partial left hemilaminectomy changes. L5-S1: There is a circumferential disc bulge with apparent right central disc protrusion. There is enhancement within the ventral and right lateral epidural space compatible with epidural scar tissue. There is a component of nonenhancement which may represent mixed scar tissue and recurrent disc herniation. However, there is no significant mass effect on the right lateral recess. There is mild facet arthropathy. Mild to moderate right neuroforaminal stenosis. Findings appear similar to the prior examination. IMPRESSION: Postoperative changes are identified from left hemilaminectomy changes at L4-L5 and right hemilaminectomy changes at L5-S1. Microdiscectomy changes are noted at L5-S1 with right central disc protrusion suggestive of a mixed recurrent disc herniation and epidural scar tissue. There is no significant mass effect on the traversing right S1 nerve root. Electronically signed by: Kristine Giang MD (02/22/2019 11:06 AM) [facility]
== END | disposition home or self-care (01) ==
LOC: KCIC MRI 09:59
PROVIDERS: ATTEND Anesthesiology
DX: M51.16 Intervertebral disc disorders with radiculopathy, lumbar region (principal); M48.061 Spinal stenosis, lumbar region without neurogenic claudication; Z88.0 Allergy status to penicillin; Z88.2 Allergy status to sulfonamides; Z88.1 Allergy status to other antibiotic agents; Z88.8 Allergy status to other drugs, medicaments and biological substances; Z91.040 Latex allergy status
CPT/HCPCS: 72158; A9585

== ENCOUNTER → 2019-04-04 | Outpatient (CLI) | payer OTHER ==
[~2019-04-04] MED LIST changes: -GADOBUTROL 7.5 MMOL/7.5 ML VIAL IV ONE
[2019-04-04 14:38] LABS: ALBUMIN 4.3 g/dL (3.4-5.0); ALBUMIN/GLOBULIN RATIO 1.2 (1.0-1.7); BASO % 1 % (0-3); CALCIUM 9.2 mg/dL (8.5-10.1); CREATININE 0.9 mg/dL (0.6-1.0); EOS # 0.1 x10^3/uL (0.0-0.7); EOS % 1 % (0-3); GFR 69.7; HEMATOCRIT 40.9 % (36.0-47.0); HEMOGLOBIN 13.7 g/dL (12.0-15.5); LYMPH # 2.2 x10^3/uL (1.0-4.8); LYMPH % 28 % (24-48); MEAN CORPUSCULAR HEMOGLOBIN 30 pg (25-35); MEAN CORPUSCULAR HGB CONC 33 g/dL (31-37); MEAN CORPUSCULAR VOLUME 90 fL (79-100); MONO # 0.4 x10^3/uL (0.0-1.1); MONO % 6 % (0-9); NEUT % 64 % (31-73); PLATELET COUNT 316 x10^3/uL (140-400); POTASSIUM 3.2 mmol/L (3.5-5.1); RED BLOOD COUNT 4.56 x10^6/uL (3.50-5.40); TOTAL BILIRUBIN 0.9 mg/dL (0.2-1.0); WHITE BLOOD COUNT 7.8 x10^3/uL (4.0-11.0)
== END | disposition home or self-care (01) ==
LOC: SURGPAT 13:28
PROVIDERS: ATTEND Neurological Surgery
DX: Z01.818 Encounter for other preprocedural examination (principal); M51.17 Intervertebral disc disorders with radiculopathy, lumbosacral region; Z88.0 Allergy status to penicillin; Z91.040 Latex allergy status; Z88.8 Allergy status to other drugs, medicaments and biological substances
CPT/HCPCS: 36415; 80053; 85025; 87641

== ENCOUNTER 2019-04-11 07:16 | Observation (INO) | payer OTHER ==
--- NOTE | 2019-04-08 15:13 | PREOP HP ---
DATE OF SERVICE: 04/11/2019 HISTORY OF PRESENT ILLNESS: The patient is a pleasant 38-year-old who has undergone 2 lumbar surgeries, the first in 2006 and the second in 2014. The operation in 2014 was on the right side at L5-S1. She did eventually do well following that surgery. Beginning in 11/2018 she developed pain in her lower back and right posterior thigh and leg. The pain in her right buttock is the most severe. The pain started spontaneously. She rates her pain as an 8/10. Sitting or standing can increase her pain. Changing positions or lying down helps her. She has been taking oxycodone. She received epidural steroid injections recently, which she said have not helped her. There is no problem on the left side. She does not notice a significant weakness. PAST MEDICAL HISTORY: Anemia, arthritis, headaches, kidney stones, psychiatric care. PAST SURGICAL HISTORY: Lumbar microdiscectomy at L5-S1 in 09/2015, lumbar surgery in 2006, a cholecystectomy in 2014, exploratory lap with ovarian cyst in 2013. FAMILY HISTORY: Aneurysm, cancer, diabetes, heart problems and disease, hypertension, migraine headaches, and spine problems. SOCIAL HISTORY: . Drinks alcohol 1-2 times per week. Does not smoke. Walks her dog daily. ALLERGIES: SULFA, PENICILLIN AND LATEX. CURRENT MEDICATIONS: Paxil, Aleve, Percocet, duloxetine, esomeprazole, sodium, tizanidine, multivitamin. REVIEW OF SYSTEMS: A 12-point review of systems was obtained and is noncontributory except for that mentioned above. PHYSICAL EXAMINATION: NEUROSURGERY EXAMINATION: GENERAL APPEARANCE: Alert, pleasant, no acute distress. HEAD: Normocephalic and atraumatic. SKIN: Warm and dry, well-healed lumbar incision. MUSCULOSKELETAL: Lumbar paraspinal muscle bulk is normal, restricted range of motion of the lumbar spine, [id number] tenderness of the lower lumbar spine on palpation, normal range of motion of the lower extremities bilaterally. EXTREMITIES: No clubbing, cyanosis or edema. NEUROLOGIC: Alert and oriented x 3. Normal recent and remote memory. Strength 5/5 in bilateral lower extremities. Sensory was intact to light touch in bilateral lower extremities, except for decrease in sensation in the lateral side of her right foot including her right fifth toe. Reflexes were present and symmetric in the lower extremities bilaterally except for an absent right ankle jerk. Positive straight leg raising on the right at 30 degrees with back, right buttock and posterior thigh pain, relieved by Lasegue's maneuver. Negative straight leg raising on the left. Normal gait. IMAGING: I reviewed her lumbar imaging studies from 02/22/2019. On that study at L5-S1, there is a right-sided disc protrusion with posterior deviation of the nerve roots on the right side at that level. At L4-L5 on the left, there are postoperative changes. ASSESSMENT/ PLAN: She has a right S1 radiculopathy with numbness and positive straight leg raising. The problem has been progressive and worsened despite conservative measures including epidural steroid injections. At this point, I think it is not unreasonable to consider reoperation with microdiscectomy at L5-S1 on the right. I did discuss that with her including the risks. She would like to go ahead. We will make the arrangements. BARTOLO HAWKNIS MD DR: AMANDA/arlen JOB#: [id number] / [id number] HITESH
[~2019-04-11] VITALS: Ht 170.2 cm; Wt 76.2 kg
[2019-04-11] VITALS (11 sets, daily range): BP systolic 109–133; BP diastolic 67–89
[~2019-04-11 07:16] MED LIST changes: +BACITRACIN 50,000 UNIT in IV NORMAL SALINE 1000ML BAG 1,000 ML IRR ONE; +BUPIVAC MPF-EPI 0.5%-1:200000 30 ML VIAL. ONE; -DOCU-109 PO; +GELATIN SPONGE SIZE 100. ONE; +HYDROmorphone 2 MG/ML VIAL IV PRN; +IV RINGERS,LACTATED 1000ML 1,000 ML IV SCH; +KETOROLAC 60 MG/2 ML INJ FOR OR. ONE; +LIDOCAINE 1% PF 2 ML VIAL. ID PRN; +MORPHINE SULFATE 2 MG/ML VIAL. IV PRN; +ONDANSETRON PF 4 MG/2 ML VIAL. IV PRN; +PROCHLORPERAZINE 10 MG/2 ML VIAL. IV PRN; +THROMBIN TOPICAL 20,000 UNIT SPRAY.SYRN KIT TP ONE; +ceFAZolin 2GM PREMIX 2 GM/50 ML BAG IV ONE; +fentaNYL PF VIAL 100 MCG/2 ML VIAL IV PRN
[2019-04-11] MEDS ORDERED: SCOPOLAMINE 1.5MG PATCH. TD ONE (08:00)
[2019-04-11] MEDS ORDERED: REMIFENTANIL 2 MG VIAL. IV ONE (08:25)
[2019-04-11] MEDS ORDERED: MIDAZOLAM HCL/PF 2 MG/2 ML VIAL. ONE (08:25)
[2019-04-11] MEDS ORDERED: ROCURONIUM 50 MG/5 ML VIAL. ONE (08:25)
[2019-04-11] MEDS ORDERED: DESFLURANE > 120 MINUTES IH ONE (08:28)
[2019-04-11] MEDS ORDERED: DEXAMETHASONE SOD PHOS 4 MG/ML VIAL ONE ×2 (08:28)
[2019-04-11] MEDS ORDERED: PROPOFOL 20 ML IV ONE (08:28)
[2019-04-11] MEDS ORDERED: ONDANSETRON PF 4 MG/2 ML VIAL. ONE (08:28)
[2019-04-11] MEDS ORDERED: LIDOCAINE 2% PF 5 ML VIAL. ONE (08:28)
[2019-04-11] MEDS ORDERED: PROPOFOL 50 ML IV ONE ×2 (08:28→11:33)
[2019-04-11] MEDS ORDERED: PHENYLEPHRINE 10 MG/ML VIAL. ONE (08:28)
[2019-04-11] MEDS ORDERED: FAMOTIDINE 20 MG/2 ML VIAL ONE (08:28)
[2019-04-11] MEDS ORDERED: KETOROLAC 30 MG/ML INJ FOR OR. INJ ONE (08:28)
[2019-04-11] MEDS ORDERED: GLYCOPYRROLATE 1 MG/5 ML VIAL. ONE (08:33)
[2019-04-11 08:36] LABS: U PREG PATIENT NEGATIVE (NEG)
[2019-04-11] MEDS ORDERED: ESMOLOL 100 MG/10 ML VIAL. IVP ONE ×2 (08:56→12:10)
[2019-04-11] MEDS ORDERED: fentaNYL PF VIAL 100 MCG/2 ML VIAL ONE (09:57)
[2019-04-11] MEDS ORDERED: REMIFENTANIL 1 MG VIAL. IV ONE (11:21)
[2019-04-11] MEDS ORDERED: NEOSTIGMINE 10 MG/10 ML VIAL. ONE (11:35)
[2019-04-11] MEDS ORDERED: DOCU-109 PO (11:52)
--- NOTE | 2019-04-11 11:54 | DISCH ---
DISCHARGE INSTRUCTIONS Condition on Discharge Condition on Discharge: Stable Activity After Discharge Activity Instructions for Disc: Activity as tolerated, Avoid exertion, Bedrest today, Walk in house Other activity instructions: no driving for a week Bathing Instructions: Shower-keep dressing dry, No Tub Bath until see Lifting Instructions after Dis: No heavy lifting, No pulling or pushing, Do not lift >10 pounds Exercise Instruction after Dis: Progress as tolerated Driving Instructions after Dis: Other, see below Weight Bearing Status after Di: No restrictions Diet after Discharge Diet after Discharge: Regular Additional Diet Restrictions: resume home diet Diet Texture: Regular Wound Incision Care Wound/Incision Care: Ice to area for comfort, Keep wound/cast CDI, Change dressing, Other, see below Other wound/incision instructi: may remove dressing in 48 hours if dry then may shower, no soaking Wound Care Equipment: Dressings Contacting the after DC Call your doctor for: Concerns you may have Follow-Up Follow up with: Dr. Hawkins's nurse in 2 weeks [phone] Treatment/Equipment after DC Adaptive Equipment Issued: None BARTOLO HAWKINS MD April 11, 2019 11:54
[2019-04-11] MEDS: fentaNYL PF VIAL 100 MCG/2 ML VIAL IV PRN ×5 (12:26→21:11)
[2019-04-11] MEDS ORDERED: MAG HYDROX/ALUMINUM HYD/SIMETH 30 ML ORAL.SUSP PO PRN (12:30)
[2019-04-11] MEDS ORDERED: 0.9 % SODIUM CHLORIDE 10 ML DISP.SYRIN. IV PRN (12:30)
[2019-04-11] MEDS ORDERED: ACETAMINOPHEN 325 MG TABLET. PO PRN (12:30)
[2019-04-11] MEDS ORDERED: ONDANSETRON PF 4 MG/2 ML VIAL. IV PRN (12:30)
[2019-04-11] MEDS ORDERED: oxyCODONE/APAP 5/325 1 TAB TABLET PO PRN (12:30)
[2019-04-11] MEDS ORDERED: MAGNESIUM HYDROXIDE 2,400 MG/30 ML ORAL.SUSP. PO PRN (12:30)
[2019-04-11] MEDS ORDERED: CALCIUM CARBONATE 500 MG TAB.CHEW PO PRN (12:30)
--- NOTE | 2019-04-11 13:45 | NUR ---
Pt arrived via bed from PACU. A&O X4, VSS, c/o pain 07/09. Dressing on lower back with large amount of drainage reinforced with abd and tape. IVF infusing @ 100ml/hr. Meal tray ordered. Completed admission assessment. Call light within reach. Family at bedside. Will continue to monitor.
--- NOTE | 2019-04-11 14:16 | OP ---
DATE OF SURGERY: 04/11/2019 PREOPERATIVE DIAGNOSES: Recurrent herniated disc, L5-S1, right, with right lumbar radiculopathy. POSTOPERATIVE DIAGNOSIS: Recurrent herniated disc, L5-S1, right, with right lumbar radiculopathy. OPERATION PERFORMED: Hemilaminectomy and facet decompression with lumbar microdiscectomy and lysis of adhesions, L5-S1, right. The operation was performed with EMG monitoring, SSEP monitoring, fluoroscopy, microscopic dissection. SURGEON: Yasir Hawkins M.D. LEAD COATER: SOPHIA Stewart, assisted with the surgery. She assisted with the decompression, microdiscectomy and closure. OPERATIVE INDICATIONS: The patient is a pleasant 38-year-old who developed intractable back and right leg pain which failed conservative measures in the past. She has had surgery at L5-S1 on the right. On imaging studies, there was disk bulging/herniation with scar at this level on the right, and I recommended lumbar microsurgery to decompress the entire region after she failed to improve with conservative measures. She understood the surgery, and she understood the risks, she understood that she may require future surgery possibly and fusion in the future. She wished to go ahead. DESCRIPTION OF PROCEDURE: Following general endotracheal anesthesia, the patient was positioned prone on the Se table. Lumbar region prepped and draped in standard fashion. NAM hose and AV impulse boots were applied for DVT prophylaxis. The microscope was draped. Fluoroscopy was draped and brought into the field. Monitoring was established. Ancef 2 grams was given less than 1 hour prior to initiation of the surgery. Using fluoroscopic guidance, an incision was made directly over the L5-S1 interspace. I dissected down through skin and subcutaneous tissue, reflected the paraspinal muscles and created an exposure above and below the disc space at L5-S1. Looking inferiorly, I drilled through the lamina, exposed the S1 root and then followed it superiorly and worked gradually up to the area of the previous operation where there was considerable scar and very few anatomical landmarks. I did drill portions of the facet to gain access to the region of the disc just above the pedicle. I visualized the L5 root and protected that and then beneath the L5 root and more medially, I entered the disc space and began performing a discectomy. As I worked, the region became better and better decompressed, but then allowed me to carry my dissection further medially and decompress. There was considerable scarring, plus sequestered disc fragment was present, and I grasped and peeled this material away, and I continued my discectomy into the disc space and fully decompressed the entire region. At the initiation of the surgery, the nerve root was very tightly compressed, both the S1 and the L5 roots were compressed, but as I worked, I was able to decompress beneath the L5 root as well as the S1 root and removed much of this material, scar and disc and fully decompressed the region. I irrigated copiously with antibiotic solution. There were no untoward problems. Firing was quiet. SSEP remained stable. I irrigated copiously, removed the retractor, obtained hemostasis in the muscle, and I closed the wound in layers with absorbable suture. The skin was closed with skin rodrigue. The operation went very well. I was quite pleased with the surgery. YASIR HAWKINS MD DR: AMANDA/arlen JOB#: [id number] / [id number] HITESH
[2019-04-11] MEDS: oxyCODONE/APAP 5/325 1 TAB TABLET PO PRN ×2 (14:37→19:18)
[2019-04-11] MEDS: POTASSIUM CL 20MEQ D5-0.45NACL 1,000 ML IV SCH (15:57)
[2019-04-11] MEDS: DOCUSATE SODIUM 100 MG CAPSULE. PO SCH (21:12)
[2019-04-12] MEDS: POTASSIUM CL 20MEQ D5-0.45NACL 1,000 ML IV SCH (01:44)
[2019-04-12 03:00] VITALS: BP 108/75
[2019-04-12] MEDS: oxyCODONE/APAP 5/325 1 TAB TABLET PO PRN ×2 (03:36→08:34)
[2019-04-12 07:00] VITALS: BP 129/78
[2019-04-12] MEDS: DOCUSATE SODIUM 100 MG CAPSULE. PO SCH (08:33)
--- NOTE | 2019-04-12 12:34 | DS ---
DATE OF DISCHARGE: 04/12/2019 DISCHARGE DIAGNOSES: Recurrent herniated disc, L5-S1, right with right lumbar radiculopathy. HISTORY OF PRESENT ILLNESS: The patient is a pleasant 38-year-old who developed intractable back and right leg pain, which failed to improve with conservative measures. On imaging studies, there was disc bulging/herniation with scar at this level on the right. I recommended lumbar microsurgery to decompress the entire region after she had failed to improve with conservative measures. She understood the surgery and the risk and wished to proceed. HOSPITAL COURSE: She was admitted to the floor postoperatively where she did well. She has been up ambulating in the room and in the halls. Physical therapy was initiated and instruction was given to her regarding her activities. She reports resolution of her right leg pain. She is in good condition to discharge home. DISCHARGE MEDICATIONS: She will resume her medications per the MRAD. DISCHARGE INSTRUCTIONS: She was instructed regarding incision care, activity restrictions and expectations for the next several weeks. She will follow up with us in 2 weeks. She understands to call with any questions or concerns. BARTOLO HAWKINS MD DR: DIANE/arlen JOB#: [id number] / [id number] HITESH
--- NOTE | 2019-04-12 13:03 | NUR ---
Pt discharged home with self care. Discharge instructions and prescriptions discussed. Pt verbalized understanding. IV removed. Pt assisted to wheelchair and was taken to main entrance and was secured in vehicle with .
--- NOTE | 2019-04-13 15:06 | PATHOLOGY ---
[facility] Accession Number: [id number] . 01 Material submitted: . vertebral column - LUMBAR DECOMPRESSION AND DISC . 01 Clinical history: . Lumbar herniated disc and radiculopathy . 02 Diagnosis: Segments of fibrocartilaginous tissue and bone, lumbar decompression and disc: - Degenerative changes of fibrocartilaginous tissue. . (JPM:mm; 04/13/2019) [facility]/04/13/2019 . 02 Comment: There is no evidence of an acute inflammatory process or malignancy. . (JPM:mml; 04/13/2019) . 02 Electronically signed: . Familia Parekh MD, Pathologist NPI- [id number] . 01 Gross description: . Received in formalin labeled "Lalita Holloway, lumbar decompression and disc," are several pieces of glistening, fibrous tissue measuring 3.3 x 2.6 x 0.9 cm in aggregate dimensions, containing small fragments of possible bone. The tissue submitted representatively in cassette A1, following decalcification. (TSD; 04/11/2019) TOB/TOB . 02 Pathologist provided ICD-10: M51.36 . 02 CPT . 028187, [id number] Specimen Comment: A courtesy copy of this report has been sent to Specimen Comment: [phone], . Specimen Comment: Report sent to / DR MENDEZ Performed at: 01 [facility] [address], [place] [id number] MD Rodríguez Valverde MD Phone: [phone] Performed at: 02 [facility] [address], [place] [id number] MD Familia Parekh MD Phone: [phone]
== END 2019-04-12 12:00 | disposition home or self-care (01) ==
LOC: SURG 07:16 → 4 NORTH 12:49
PROVIDERS: ADMIT Neurological Surgery; ATTEND Neurological Surgery
DX: M54.17 Radiculopathy, lumbosacral region (principal); R51 Headache; M19.90 Unspecified osteoarthritis, unspecified site; Z87.442 Personal history of urinary calculi; Z90.49 Acquired absence of other specified parts of digestive tract; Z83.3 Family history of diabetes mellitus; Z82.49 Family history of ischemic heart disease and other diseases of the circulatory system; Z98.890 Other specified postprocedural states
CPT/HCPCS: 63047; 76000; 81025; 88304; 88311; 96374; 96376; 97116; 97162; 97530; A7015; G0378; G0379; G8978; G8979; G8980; J0696; J1100; J1885; J2001; J2250; J2405; J2704; J2710; J3010; J3490; J7030

== ENCOUNTER → 2019-04-28 | Outpatient (CLI) | payer OTHER ==
[2019-04-12 07:00] VITALS: BP 129/78
[~2019-04-28] MED LIST changes: -BACITRACIN 50,000 UNIT in IV NORMAL SALINE 1000ML BAG 1,000 ML IRR ONE; -BUPIVAC MPF-EPI 0.5%-1:200000 30 ML VIAL. ONE; +DOCU-109 PO; -GELATIN SPONGE SIZE 100. ONE; -HYDROmorphone 2 MG/ML VIAL IV PRN; -IV RINGERS,LACTATED 1000ML 1,000 ML IV SCH; -KETOROLAC 60 MG/2 ML INJ FOR OR. ONE; -LIDOCAINE 1% PF 2 ML VIAL. ID PRN; -MORPHINE SULFATE 2 MG/ML VIAL. IV PRN; -ONDANSETRON PF 4 MG/2 ML VIAL. IV PRN; -PROCHLORPERAZINE 10 MG/2 ML VIAL. IV PRN; -THROMBIN TOPICAL 20,000 UNIT SPRAY.SYRN KIT TP ONE; -ceFAZolin 2GM PREMIX 2 GM/50 ML BAG IV ONE; -fentaNYL PF VIAL 100 MCG/2 ML VIAL IV PRN
--- NOTE | 2019-04-29 04:27 | PAIN ---
DATE OF SERVICE: 04/28/2019 PROGRESS NOTE FOR PAIN CLINIC DIAGNOSIS: Lumbar radiculopathy with post-lumbar laminectomy syndrome. HISTORY OF PRESENT ILLNESS: The patient is a 38-year-old female who returns for followup status post recent lumbar diskectomy and decompression about 2 weeks ago. The patient is following up with a neurosurgeon later today and reports still significant pain in the low back, some in the right leg, but improving in the right lower extremity, posterior gluteus, posterior thigh. The patient reports it is a burning, aching, sharp, tight, shooting in the low back, radiating in the leg, at times becoming severe, but overall she feels that she is improved. The patient reports it is a 10 on a scale of 10 at its worst in the past week, 7 on average, 6 at its least and is a 7 today. The patient reports no new motor or sensory deficits, no new changes, still some significant pain in the back and the leg, again 2 weeks postoperatively. The patient has been taking oxycodone with good relief, although she has not been able to take her anti-inflammatories. States she will be taking Aleve over the counter 1-2 tablets upon recommendation from her surgeon for postoperative bleeding precautions. We discussed that she will discuss this with her surgeon today as well and I feel that it would be okay for her to start taking this again if that is agreeable with her neurosurgeon. PHYSICAL EXAMINATION: VITAL SIGNS: The patient's blood pressure 125/96, pulse 105, respirations 18, temperature 99.0 degrees Fahrenheit, height is 5 feet 7 inches, weight is 167 pounds. GENERAL: The patient is awake, alert, oriented, appropriate, very pleasant demeanor. HEENT: Head shows normocephalic, atraumatic. Extraocular movements are intact and symmetrical. Oral cavity: Mucous membranes are moist and pink. Dentition is intact. NECK: Shows anterior throat supple without palpable lymphadenopathy noted. Swallow reflex is symmetrical. CHEST: Shows normal on inspection. Breath sounds are clear to auscultation bilaterally. HEART: Shows S1, S2 clear. No murmurs auscultated. ABDOMEN: Soft, nontender, nondistended. BACK: Shows spine grossly in the midline. Well healing surgical scars noted with surgical rodrigue in place in the midline in the lumbar distribution with some petechial erythema around the area of the incision, but appears to be from contact, dermatitic, probably from bandage tape on appearance. No swelling, no discharge, no significant tenderness with palpation. EXTREMITIES: The patient's lower extremities show deep tendon reflexes 2+ in patellar and 1+ tendo-calcaneus tendons. Motor exam is strong with 5/5 dorsiflexion, extension and equal bilaterally. PLAN: Options were discussed with the patient. The patient's old chart was reviewed as her current medication regimen updated. Current review of systems updated today as well. We will refill the patient's oxycodone with instructions and side effects to be aware of discussed with the patient. We will discuss starting her on Naprosyn again with a neurosurgeon and follow up with him later today and will follow up at this time on as needed basis. LEE CA MD DR: ERIBERTO/arlen JOB#: [id number] / [id number]
== END | disposition home or self-care (01) ==
LOC: PNCL 09:22
PROVIDERS: ATTEND Anesthesiology
DX: M54.16 Radiculopathy, lumbar region (principal); M96.1 Postlaminectomy syndrome, not elsewhere classified
CPT/HCPCS: G0463

== ENCOUNTER → 2019-07-29 | Outpatient (CLI) | payer OTHER ==
[~2019-07-29] MED LIST changes: -OXYB10TA PO; +OXYB10TA2 PO; -PANT40TA3 PO; +PANT40TA77 PO
--- NOTE | 2019-07-30 04:42 | PAIN ---
DATE OF SERVICE: 07/29/2019 PROGRESS NOTE FOR PAIN CLINIC DIAGNOSIS: Lumbar radiculopathy with lumbar post-laminectomy syndrome. HISTORY OF PRESENT ILLNESS: The patient is a 39-year-old female who returns for followup status post caudal epidural steroid injection x 1. The patient reports about 75% improvement for the first 3-4 weeks. The patient reports pain is returning now in the low back, right lower extremity, posterior gluteus, posterior thigh, posterior calf, radiating. She was doing some physical therapy and had to stop the physical therapy because the pain was becoming more noticeable and more painful. The patient is to talk to her neurosurgeon who is recommending her not to do physical therapy currently and to follow up with additional injections. The patient reports she has been doing fairly well with the medications ____ oxycodone as well as Flexeril and does well with these also. The patient reports it awakens her from sleep about twice a night. The pain is returning now again radiating in a radicular fashion in the right leg. It is aching, sharp, dull, shooting, tingling, cramping, stabbing, sometimes severe pain with walking, standing, better with sitting or lying down, but again awakened her from sleep. PHYSICAL EXAMINATION: VITAL SIGNS: The patient's blood pressure is 148/109, pulse 87, respirations 18, temperature 98.5 degrees Fahrenheit, height is 5 feet 7 inches, weight is 172 pounds. GENERAL: The patient is awake, alert, oriented, appropriate with pleasant demeanor. HEENT: Head is normocephalic and atraumatic. Extraocular movements are intact and symmetrical. Oral cavity: Mucous membranes moist and pink. Dentition is intact. NECK: Shows anterior throat supple without palpable lymphadenopathy noted. Swallow reflex symmetrical. CHEST: Shows normal on inspection. Breath sounds clear to auscultation bilaterally. HEART: Shows S1, S2 clear. No murmurs auscultated. ABDOMEN: Soft, nontender, and nondistended. No palpable organomegaly is noted. No rebound or guarding demonstrated. BACK: Shows spine grossly in the midline. Normal appearing thoracic kyphosis and lumbar lordotic curvature. Lumbar paraspinous muscle shows symmetrical on inspection, on palpation shows some moderate tenderness diffusely. Well-healed surgical scars again noted. The patient has good rotational motion of lumbar spine, both laterally as well as extension and flexion. EXTREMITIES: The patient's lower extremities show deep tendon reflexes 2+ in the patellar, 1+ in the Achilles tendons. Motor exam is strong with 5/5 dorsiflexion and extension, equal. Peripheral pulses are 1+ posterior tibial. ASSESSMENT AND PLAN: Options were discussed with the patient. The patient's old chart was reviewed as her current medication regimen updated. Current review of systems updated today as well. We will preauthorize the patient for a second caudal approach epidural steroid, as she did very well with her first injection with pain returning after several weeks in a radicular fashion in the right L5-S1 dermatomal distribution. The patient will be given refill for oxycodone, also Flexeril and we will add Medrol Dosepak to see if this may decrease the pain in the meantime. The patient will wait for preauthorization. We will plan on second caudal epidural steroid injection at that time. LEE CA MD DR: ERIBERTO/arlen JOB#: [id number] / [id number]
== END | disposition home or self-care (01) ==
LOC: PNCL 07:37
PROVIDERS: ATTEND Anesthesiology
DX: M54.16 Radiculopathy, lumbar region (principal); M96.1 Postlaminectomy syndrome, not elsewhere classified
CPT/HCPCS: G0463

== ENCOUNTER → 2019-09-16 | Outpatient (CLI) | payer OTHER ==
[~2019-09-16] MED LIST changes: +IOHEXOL 180 MG/ML 10 ML VIAL. ONE; +methylPREDNISolone ACETATE 40 MG/ML VIAL. ONE; +methylPREDNISolone ACETATE 80 MG/ML VIAL. ONE
--- NOTE | 2019-09-16 19:21 | PAIN ---
DATE OF SERVICE: 09/16/2019 PROGRESS NOTE FOR PAIN CLINIC DIAGNOSES: Lumbar radiculopathy with lumbar post-laminectomy syndrome. HISTORY OF PRESENT ILLNESS: The patient is a 39-year-old female who returns for followup status post previous caudal epidural steroid injections, also medication management with oxycodone and Flexeril. The patient has been doing very well with this. We spoke with her last visit and have a plan for caudal epidural steroid injection today. The patient still has significant pain in the low back and into the right lower extremity, posterior gluteus, posterior thigh, posterior calf after second lumbar surgery. The patient reports it is aching, sharp, shooting, tingling, burning, cramping and stabbing, radiating, becoming constant, severe at times with walking, standing, better with sitting or lying down. The patient reports it does awaken her from sleep about every 3-4 hours. Reports no new motor or sensory deficits, no new bowel or bladder incontinence or other complaints. Describes the pain as a 9-10 on a scale of 10 at its worst, 7-8 on average and a 7 at its least and is a 7 today. The patient reports no new motor or sensory deficits, no new bowel or bladder incontinence or other complaints. PHYSICAL EXAMINATION: VITAL SIGNS: The patient's blood pressure 145/92, pulse 114, respirations 18, temperature 98.9 degrees Fahrenheit, height is 5 feet 7 inches, weighs 175 pounds. GENERAL: The patient is awake, alert, oriented, appropriate, very pleasant demeanor. HEENT: Shows normocephalic, atraumatic. Extraocular movements are intact and symmetrical. Oral cavity: Mucous membranes moist and pink. Dentition is intact. NECK: Shows anterior throat supple without palpable lymphadenopathy noted. Swallow reflex symmetrical. CHEST: Shows normal on inspection. Breath sounds are clear bilaterally. HEART: Shows S1, S2 clear. No murmurs auscultated. ABDOMEN: Soft, nontender, nondistended. No palpable organomegaly is noted. No rebound or guarding demonstrated. BACK: Shows spine grossly in the midline. Normal appearing thoracic kyphosis, some minor flattening of lumbar lordotic curvature with well-healed surgical scarring noted. Lumbar paraspinous muscle shows symmetrical on inspection; on palpation shows some moderate tenderness diffusely bilaterally, but only diffusely without radiation. EXTREMITIES: The patient's lower extremities show deep tendon reflexes at 2+ in the patellar, 1+ tendo-calcaneus tendons. Motor exam is strong with 5/5 dorsiflexion, extension, quadriceps and hamstring flexion and symmetrical. Peripheral pulses are 1+ posterior tibia. No peripheral edema is noted. Options were discussed with the patient. The patient's old chart was reviewed as her current medication regimen updated. Current review of systems updated today as well. We will proceed with caudal approach epidural steroid injection today with fluoroscopic guidance. Risks were again discussed including, but not limited to bleeding, infection, possibility of epidural hematoma, subsequent neurological compromise, dural puncture, headaches, spinal cord and/or nerve damage, side effects of steroid medication and poor results regarding pain control. The patient understands and wished to proceed. The patient will return to clinic in approximately 2 weeks for followup. She was counseled on return appointment, activity level and side effects to be aware of. DIAGNOSES: Lumbar radiculopathy with lumbar post-laminectomy syndrome. PROCEDURES: Lumbar epidural steroid injection, caudal approach using C-arm fluoroscopic guidance under sterile prep and drape using local anesthetic. MEDICATION INJECTED: A total of 120 mg Depo-Medrol plus 10 mL of preservative-free normal saline and 2 mL of contrast. CONDITION AT DISCHARGE: Stable. The patient tolerated the procedure well, had no complications. LEE CA MD DR: ERIBERTO/arlen JOB#: [id number] / [id number]
== END ==
LOC: PNCL 11:32
PROVIDERS: ATTEND Anesthesiology
DX: M54.16 Radiculopathy, lumbar region (principal); M96.1 Postlaminectomy syndrome, not elsewhere classified
CPT/HCPCS: 62323; J1030; J1040; Q9965

== ENCOUNTER → 2019-12-12 | Outpatient (CLI) | payer OTHER ==
[~2019-12-12] MED LIST changes: -IOHEXOL 180 MG/ML 10 ML VIAL. ONE; -OXYB10TA2 PO; +OXYB10TA26 PO; +TRAZ-123 PO; -TRAZ-86 PO; -methylPREDNISolone ACETATE 40 MG/ML VIAL. ONE; -methylPREDNISolone ACETATE 80 MG/ML VIAL. ONE
--- NOTE | 2019-12-13 00:47 | PAIN ---
DATE OF SERVICE: 12/12/2019 PROGRESS NOTE FOR PAIN CLINIC DIAGNOSES: Lumbar radiculopathy with lumbar post-laminectomy syndrome. HISTORY OF PRESENT ILLNESS: The patient is a 39-year-old female who returns for followup status post caudal approach epidural steroid injection on 09/16/2019. The patient reports she did very well with about 70% improvement for about 2-1/2 months. The patient reports about 2-3 weeks ago, the pain began to return without any specific injury or accident that she is aware, it began to return just out of its own on the low back radiating to posterior gluteus on the right side, posterior right leg, posterior right thigh and calf on the right side into the right ankle. The patient reports it is aching, sharp, tight, shooting, tingling, burning in the back, cramping and stabbing in the back as well as shooting, radiating into the right lower extremity as it was previously. The patient reports it as a 9-10 on a scale of 10 at its worst over the past week, 7-8 on average, 7 at its least and is an 8 today. The patient reports no new motor or sensory deficits, has been waking her from sleep at night about every 4 hours, worse with walking and standing. Initially, she was doing much better with walking distances, doing work activities, household activities, traveling with greater ease and comfort, now the pain is returning fairly significantly. The patient reports no new motor or sensory deficits, no new bowel or bladder incontinence or other complaints. PHYSICAL EXAMINATION: VITAL SIGNS: The patient's blood pressure 144/107, pulse 99, respirations 18, temperature 98.3 degrees Fahrenheit, height is 5 feet 7 inches, and weight is 175 pounds. GENERAL: The patient is awake, alert, oriented, appropriate, very pleasant demeanor. HEENT: Shows normocephalic, atraumatic. Extraocular movements are intact and symmetrical. Oral cavity shows mucous membranes moist and pink. Dentition is intact. NECK: Shows anterior throat supple without palpable lymphadenopathy noted. Swallow reflex symmetrical. CHEST: Shows normal on inspection. Breath sounds clear to auscultation bilaterally. HEART: Shows S1, S2 clear. No murmurs auscultated. ABDOMEN: Soft, nontender, nondistended. No palpable organomegaly is noted. No rebound or guarding demonstrated. BACK: The patient's back shows spine grossly in midline with well-healed surgical scar in the lumbar distribution with some minor flattening of lumbar lordotic curvature. Lumbar paraspinous muscle shows symmetrical on inspection, on palpation shows some moderate tenderness diffusely bilaterally going diffusely without significant radiation. The patient does show good rotational motion of lumbar spine, both laterally as well as extension and flexion without significant difficulty. EXTREMITIES: The patient's lower extremities show deep tendon reflexes at 2+ in the patellar, 1+ tendo-calcaneus tendons. Motor exam is strong with 5/5 dorsiflexion, extension, quadriceps and hamstring flexion. The patient's right leg does show mild straight leg raise positive at the right about 45 degrees, decreased with knee flexion, left side is negative. Gaenslen's and Venkat's maneuvers are negative bilaterally. The patient is able to stand, stand on her toes, walks with a slight favoring gait, does appear to favor the right lower extremity mildly, not using any assistive devices. Options were discussed with the patient. The patient's old chart was reviewed as her current medication regimen updated. Current review of systems was updated today as well. We will preauthorize the patient for a caudal approach epidural steroid injection as she has done very well with these in the past with clinical radiculopathy in the right lower extremity L5-S1 dermatomal distribution. We will plan on caudal approach epidural steroid injection at the L5-S1 level with again caudal approach as she has done well with these previously. In the meantime, the patient will be given Medrol Dosepak with instructions, side effects to be aware of as well. Also, refill the patient's oxycodone 75 tablets at 7.5 mg with instructions, side effects to be aware of as well. The patient will return to clinic once preauthorization for caudal approach lumbar epidural steroid injection at that time. LEE CA MD DR: ERIBERTO/arlen JOB#: [id number] / [id number]
== END | disposition home or self-care (01) ==
LOC: PNCL 10:12
PROVIDERS: ATTEND Anesthesiology
DX: M54.16 Radiculopathy, lumbar region (principal); M96.1 Postlaminectomy syndrome, not elsewhere classified
CPT/HCPCS: G0463

== ENCOUNTER → 2020-02-21 | Outpatient (CLI) | payer OTHER ==
--- NOTE | 2020-02-21 10:38 | PAIN ---
DATE OF SERVICE: 02/21/2020 PROGRESS NOTE FOR PAIN CLINIC DIAGNOSES: Lumbar radiculopathy with lumbar post-laminectomy syndrome. HISTORY OF PRESENT ILLNESS: The patient is a 39-year-old female who returns for followup status post caudal epidural steroid injections. The patient was hoping to get one sooner, but preauthorization is not obtained yet for this, but she did very well after the last one with approximately, that is 70% improvement in the back and the bilateral lower extremities, posterior gluteus, posterior thighs. The patient reports now the pain in the back is worse, but is still radiating to bilateral lower extremities in a radicular fashion. The patient reports this is a 10 on a scale of 10 at its worst, 7-8 on average, 7 at its least in the past week and is an 8 today. The patient reports no new motor or sensory deficits, describes the pain as aching, sharp, shooting in the lower extremities, tingling, cramping, stabbing, radiating, becoming more severe, more constant with activity. The patient reports also increased pain with recent rainy weather that we have had. PHYSICAL EXAMINATION: VITAL SIGNS: The patient's blood pressure 130/93, pulse 83, respirations 18, temperature 99.3 degrees Fahrenheit, and height is 5 feet 7 inches. GENERAL: The patient is awake, alert, oriented, appropriate, very pleasant demeanor. HEENT: Shows normocephalic, atraumatic. Extraocular movements are intact and symmetrical. Oral cavity: Mucous membranes moist and pink. Dentition is intact. NECK: Shows anterior throat supple. CHEST: Shows normal on inspection. Breath sounds clear bilaterally. HEART: Shows S1, S2 clear. ABDOMEN: Soft, nontender. BACK: Shows spine grossly in the midline, slight flattening of the lumbar lordotic curvature with well-healed surgical scar noted. Lumbar paraspinous muscle shows symmetrical on inspection, with palpation shows some moderate tenderness diffusely bilaterally going diffusely without significant radiation. The patient does show good rotational motion of the lumbar spine, both laterally as well as extension and flexion without significant pain reported. She has mild pain over the right posterior superior iliac spine with direct palpation, but no radiation. Left side is nontender. EXTREMITIES: Lower extremities show deep tendon reflexes 2+ in the patellar, 1+ tendo-calcaneus tendons. Motor exam is strong with 5/5 dorsiflexion, extension and equal bilaterally. Peripheral pulses are 1+ posterior tibia. No peripheral edema is noted. DISCUSSION AND PLAN: Options were discussed with the patient. The patient's old chart was reviewed as her current medication regimen updated. Current review of systems updated today as well. We will preauthorize the patient for lumbar epidural steroid injection with caudal approach as she had done very well with these in the past, still has radicular pain in bilateral L5-S1 dermatomal distribution. We will plan on caudal approach for epidural steroid injection after approval. The patient will continue with anti-inflammatories. We will also refill the patient's oxycodone today with instructions, side effects to be aware of as well. The patient has had appropriate K-TRACS reporting as well as appropriate urinalysis to date and we will refill this for 1 month prescription with instructions, side effects to be aware of discussed. The patient will follow up after that time and we will plan on caudal epidural steroid injection on return. LEE CA MD DR: ERIBERTO/arlen JOB#: [id number] / [id number]
== END ==
LOC: PNCL 09:38
PROVIDERS: ATTEND Anesthesiology
DX: M96.1 Postlaminectomy syndrome, not elsewhere classified (principal); M54.16 Radiculopathy, lumbar region
CPT/HCPCS: G0463

== ENCOUNTER → 2020-05-02 | Outpatient (CLI) | payer OTHER ==
[~2020-05-02] MED LIST changes: +IOHEXOL 180 MG/ML 10 ML VIAL. ONE; +methylPREDNISolone ACETATE 40 MG/ML VIAL. ONE; +methylPREDNISolone ACETATE 80 MG/ML VIAL. ONE
--- NOTE | 2020-05-02 14:25 | PAIN ---
DATE OF SERVICE: 05/02/2020 PROGRESS NOTE FOR PAIN CLINIC DIAGNOSES: Lumbar radiculopathy with lumbar post-laminectomy syndrome. HISTORY OF PRESENT ILLNESS: The patient is a 39-year-old female who returns for followup status post caudal epidural steroid injections and medication management. The patient reports she is doing fairly well with this, but pain has been returning in the low back, bilateral lower extremities, posterior gluteus, posterior thighs. We had preauthorized her for a caudal approach epidural steroid injection. She has had that authorized and would like to proceed today. The patient reports still significant pain in the low back, also some in the mid back as well, which appears to be myofascial in etiology. We discussed this with her on the phone on 04/10/2020. She has been doing some massage and pressure techniques to the muscles, which she reports does help to a small extent. The patient reports no new motor or sensory deficits, no new bowel or bladder incontinence. Describes the pain as 9-10 on a scale of 10 at its worst over the past week, 7-8 on average, 6-7 at its least and is a 7 today. The patient reports it is aching, sharp, tight, cramping, stabbing, becoming constant, severe with activity, but not as much with lying down, generally does not awaken her from sleep most nights. PHYSICAL EXAMINATION: VITAL SIGNS: The patient's blood pressure 135/100, pulse 109, respirations 18, temperature 98.8 degrees Fahrenheit, height 5 feet 7 inches, weighs 175 pounds. GENERAL: The patient is awake, alert, oriented, appropriate, very pleasant demeanor. HEENT: Shows normocephalic, atraumatic. Extraocular movements are intact and symmetrical. Oral cavity shows mucous membranes moist and pink. Dentition is intact. NECK: Shows anterior throat supple without palpable lymphadenopathy noted. Swallow reflex symmetrical. CHEST: Shows normal on inspection. Breath sounds are clear bilaterally. HEART: Shows S1, S2 clear. No murmurs auscultated. ABDOMEN: Soft, nontender, nondistended. No palpable organomegaly is noted. There is no rebound or guarding demonstrated. BACK: Shows spine grossly in the midline. Normal appearing thoracic kyphosis and flattening of lumbar lordotic curvature with well-healed surgical scar noted. Lumbar paraspinous muscle shows symmetrical on inspection, with palpation shows some moderate tenderness diffusely bilaterally, but only diffusely without significant radiation. EXTREMITIES: The patient's lower extremities show deep tendon reflexes at 2+ in the patellar, 1+ tendo-calcaneus tendons. Motor exam is strong with 5/5 dorsiflexion, extension, quadriceps and hamstring flexion and symmetrical. Peripheral pulses are 1+ posterior tibial without edema bilaterally. Options were discussed with the patient. The patient's old chart was reviewed as her current medication regimen updated. Current review of systems updated today as well. We will proceed with a first in this series caudal approach epidural steroid injection today with fluoroscopic guidance. Risks were again discussed including, but not limited to bleeding, infection, possibility of epidural hematoma, subsequent neurological compromise, dural puncture, headaches, spinal cord and/or nerve damage, side effects of steroid medication and poor results regarding pain control. The patient understands and wished to proceed. The patient will return to clinic in approximately 2 weeks for followup. She was counseled on return appointment, activity level and side effects to be aware of. DIAGNOSES: Lumbar radiculopathy with lumbar post-laminectomy syndrome. PROCEDURE: Lumbar epidural steroid injection, caudal approach using C-arm fluoroscopic guidance under sterile prep and drape using local anesthetic. MEDICATION INJECTED: A total of 120 mg Depo-Medrol plus 10 mL of preservative-free normal saline and 2 mL of contrast. CONDITION AT DISCHARGE: Stable. The patient tolerated the procedure well, had no complications. LEE CA MD DR: ERIBERTO/arlen JOB#: [id number] / [id number]
== END ==
LOC: PNCL 12:44
PROVIDERS: ATTEND Anesthesiology
DX: M54.16 Radiculopathy, lumbar region (principal); M96.1 Postlaminectomy syndrome, not elsewhere classified
CPT/HCPCS: 62323; J1030; J1040; Q9965

== ENCOUNTER → 2020-07-02 | Outpatient (CLI) | payer BC, OTHER ==
[~2020-07-02] MED LIST changes: +META-21 PO; +PARO30TA45 PO
--- NOTE | 2020-07-02 22:43 | PAIN ---
DATE OF SERVICE: 07/02/2020 PROGRESS NOTE FOR PAIN CLINIC DIAGNOSES: Lumbar radiculopathy with lumbar post-laminectomy syndrome. HISTORY OF PRESENT ILLNESS: The patient is a 39-year-old female who returns for followup status post caudal epidural steroid injection x 1 on 05/02/2020. The patient did very well with this with about 70% improvement. The patient reports the pain is returning now. She has recently changed insurance and was waiting for that to get established. Now that she has, she is wishing to proceed with further treatment. The patient reports her pain is in the low back, in the posterior gluteus on the right side, posterior thigh and calf. The patient reports it is a 9-10 on a scale of 10 at its worst, 7-8 on average, 6-7 at its least and is a 7 today. The patient reports it is aching, sharp, tight, shooting, cramping, stabbing in the back with radiating pain in the lower extremity, mostly in the posterior right side and in the right leg. It can be severe with extended standing or walking. The patient reports it generally awaken her from sleep about every 4 hours over the past few weeks. After her last injection, she did very well, did sleep a little better, better distance walking and doing household activities as well as traveling. The patient reports the pain is returning now fairly significantly. PHYSICAL EXAMINATION: VITAL SIGNS: The patient's blood pressure is 123/84, pulse 93, respirations 16, temperature 98.6 degrees Fahrenheit, weight is 175 pounds. GENERAL: The patient is awake, alert, oriented, appropriate, very pleasant demeanor. HEENT: Shows normocephalic, atraumatic. Extraocular movements are intact and symmetrical. Oral cavity: Mucous membranes moist and pink. Dentition is intact. NECK: Shows anterior throat supple without palpable lymphadenopathy noted. Swallow reflex symmetrical. CHEST: Shows normal on inspection. Breath sounds clear to auscultation bilaterally. HEART: Shows S1, S2 clear. No murmurs auscultated. ABDOMEN: Soft, nontender, nondistended. No palpable organomegaly is noted. No rebound or guarding demonstrated. BACK: Shows spine grossly in the midline, slightly exaggerated thoracic kyphosis. Some minor flattening of lumbar lordotic curvature with well-healed surgical scarring noted. Lumbar paraspinous muscle shows symmetrical on inspection. With palpation, some mild diffuse tenderness throughout the upper, middle and lower distribution of paraspinous muscles, but without specific radiation or asymmetry. No trigger points. No tenderness over the spinous processes or sacrum itself. EXTREMITIES: The patient's lower extremities show deep tendon reflexes 2+ in the patellar, 1+ tendo-calcaneus tendons. Motor exam is 5/5 with dorsiflexion, extension, quadriceps and hamstring flexion symmetrical. Peripheral pulses are 1+ posterior tibia. No peripheral edema is noted. Options were discussed with the patient. The patient's old chart was reviewed as her current medication regimen updated. Current review of systems updated today as well. We will proceed with a caudal approach epidural steroid injection today with fluoroscopic guidance as a second in this series. Risks were again discussed including, but not limited to bleeding, infection, possibility of epidural hematoma, subsequent neurological compromise, dural puncture, headaches, spinal cord and/or nerve damage, side effects of steroid medication and poor results regarding pain control. The patient understands and wished to proceed. The patient will return to clinic in approximately 2 weeks for followup. She was counseled on return appointment, activity level and side effects to be aware of. The patient also given refill prescription for oxycodone 7.5 mg with instructions, side effects to be aware of as well. DIAGNOSIS: Lumbar radiculopathy with lumbar post-laminectomy syndrome. PROCEDURE: Lumbar epidural steroid injection, caudal approach under C-arm fluoroscopic guidance using sterile prep and drape. MEDICATION INJECTED: A total of 120 mg Depo-Medrol plus 10 mL of preservative-free normal saline and 2 mL of contrast. CONDITION AT DISCHARGE: Stable. The patient tolerated the procedure well and had no complications. LEE CA MD DR: ERIBERTO/arlen JOB#: [id number] / [id number]
== END | disposition home or self-care (01) ==
LOC: PNCL 13:19
PROVIDERS: ATTEND Anesthesiology
DX: M54.16 Radiculopathy, lumbar region (principal); M96.1 Postlaminectomy syndrome, not elsewhere classified; Z88.0 Allergy status to penicillin; Z88.2 Allergy status to sulfonamides; Z88.8 Allergy status to other drugs, medicaments and biological substances; Z79.899 Other long term (current) drug therapy
CPT/HCPCS: 62323; J1030; J1040; Q9965

== ENCOUNTER → 2020-09-03 | Outpatient (CLI) | payer BC ==
[~2020-09-03] MED LIST changes: -IOHEXOL 180 MG/ML 10 ML VIAL. ONE; +LORA-176 PO; -methylPREDNISolone ACETATE 40 MG/ML VIAL. ONE; -methylPREDNISolone ACETATE 80 MG/ML VIAL. ONE
--- NOTE | 2020-09-03 14:16 | PDOC ---
Progress Note - Pain Clinic Date of Service: DOS: DATE: 09/03/20 TIME: 14:12 Diagnosis: Dx: Lumbar radiculopathy with lumbar postlaminectomy syndrome History or Present Illness: HPI: 40-year-old female returns follow-up status post caudal epidural steroid traction x2. Patient reports about 70% improvement after the last injection with the pain returning down the low back and right lower extremity posterior gluteus posterior thigh posterior calf patient reports is stabbing burning aching dull sharp in the low back radiating shooting in the right lower extremity becoming more constant severe with time doing much better first about 6 weeks after her last injection now the pain returning patient rates as a 10 on scale 10 is worse over the past week 7-8 on average 7 at its least is an 8 today. Patient reports no new motor or sensory deficit reports does awaken her from sleep at night about every 3-4 hours initially she was doing much better with distance walking doing household activities work activities try with greater ease and comfort as well. But now the pain is returning as described. Physical Exam: VS: Blood pressure is 135/101 pulse 88 respirations 18 temperature is 97.3 F height is 5 feet 5 inches weight is 182 pounds PE: PHYSICAL EXAMINATION: GENERAL: The patient is awake, alert, oriented, appropriate, very pleasant demeanor HEENT: Shows normocephalic, atraumatic. Extraocular movements are intact and symmetrical. NECK: Shows anterior throat supple without palpable lymphadenopathy noted. Swallow reflex symmetrical. CHEST: Shows normal on inspection. Breath sounds are clear bilaterally, no rales rhonchi or wheezes auscultated. HEART: Shows S1, S2 clear. No murmurs auscultated. ABDOMEN: Soft, nontender, nondistended. No palpable organomegaly is noted. No rebound or guarding demonstrated. BACK: Shows spine grossly in the midline. Normal-appearing cervical lordotic curvature, with well-healed surgical scarring noted. There is slightly increased thoracic kyphosis, some minor flattening of the lumbar lordotic curvature. Lumbar paraspinous muscles show symmetrical on inspection, on palpation shows some moderate tenderness diffusely throughout the upper, middle and lower distribution of the paraspinous muscles bilaterally, but without specific trigger points, without radiation of pain. The patient has good rotational motion of the lumbar spine, both laterally as well as extension and flexion without significant difficulty. No tenderness over the spinous processes, sacrum or sacroiliac regions. EXTREMITIES: Lower extremities show deep tendon reflexes 2+ in the patellar and tendo calcaneus tendons. Motor exam is 5 on a scale of 5 with right dorsiflexion, extension, quadriceps and hamstring flexion and 5/5 on the left. Peripheral pulses are 1+ posterior tibial. No peripheral edema is noted bilaterally. Lower extremities are warm and dry to touch, equal in color and appearance. SKIN: Shows warm and dry, good turgor. No edema. No sores, rashes or bruising throughout. Procedure: Procedure: Options were discussed with the patient. Patient will chart reviews her current medication regimen updated current review of systems updated today as well. We will hold on further injections today as her co-pay is gotten very expensive for her and she would like to wait to this can be renegotiated with her insurance provider. Patient be given a refill prescription for oxycodone as well as a Medrol Dosepak with instructions side effects be aware of discussed with each of the medications. Patient return to clinic in approximately 4 weeks or sooner as necessary continue with stretching strength exercise as well as physical therapy routine exercises. Medication Injected: Med Injected: None Condition at Discharge: Condition at Discharge: Condition at discharge is stable LEE CA MD Sep 03, 2020 14:16
== END | disposition home or self-care (01) ==
LOC: PNCL 13:22
PROVIDERS: ATTEND Anesthesiology
DX: M54.16 Radiculopathy, lumbar region (principal); M46.1 Sacroiliitis, not elsewhere classified; I12.9 Hypertensive chronic kidney disease with stage 1 through stage 4 chronic kidney disease, or unspecified chronic kidney disease; N18.9 Chronic kidney disease, unspecified; K21.9 Gastro-esophageal reflux disease without esophagitis; Z88.0 Allergy status to penicillin; Z88.2 Allergy status to sulfonamides; Z88.8 Allergy status to other drugs, medicaments and biological substances
CPT/HCPCS: 99212; G0463

== ENCOUNTER → 2020-10-29 | Outpatient (CLI) | payer BC ==
[~2020-10-29] MED LIST changes: +METH4TAB PO
--- NOTE | 2020-10-29 14:22 | PDOC ---
Progress Note - Pain Clinic Date of Service: DOS: DATE: 10/29/20 TIME: 14:18 Diagnosis: Dx: Lumbar radiculopathy with lumbar postlaminectomy syndrome Rheumatoid arthritis History or Present Illness: HPI: 40-year-old female returns to follow-up status post caudal epidural steroid injections as well as medication management oxycodone and Flexeril. Patient had injection July 29, 2020 with good results about 70% for the first 6 weeks or so now is down about 30 to 40% improvement still with pain in the mid back low back right side right posterior gluteus posterior thigh posterior calf posterior ankle into the foot with walking standing changing positions. Patient scribes pain is tingling radiating becoming more constant severe is aching and sharp in the back alternate with dull pain in the back and also tight and shooting in the right lower extremity. Patient reports that her pain is a 10 on scale 10 is worse over the past week 7-8 on average 7 its least is an 8 today. Patient reports no new motor or sensory deficits no new bowel or bladder complaints. Patient has recently seen a new well drill operator and they are in the process of trying some new medications for her rheumatoid arthritis. Physical Exam: VS: Blood pressure is 139/106 pulse 101 respirations 18 temperature 90.5 F height is 5 feet 7 inches weight is 185 pounds PE: PHYSICAL EXAMINATION: GENERAL: The patient is awake, alert, oriented, appropriate, very pleasant demeanor HEENT: Shows normocephalic, atraumatic. Extraocular movements are intact and symmetrical. Oral cavity: Mucous membranes moist and pink. Dentition is intact. NECK: Shows anterior throat supple without palpable lymphadenopathy noted. Swallow reflex symmetrical. CHEST: Shows normal on inspection. Breath sounds are clear bilaterally, no rales rhonchi or wheezes. HEART: Shows S1, S2 clear. No murmurs auscultated. ABDOMEN: Soft, nontender, nondistended. No palpable organomegaly is noted. No rebound or guarding demonstrated. BACK: Shows spine grossly in the midline. Normal-appearing cervical lordotic curvature. There is slightly increased thoracic kyphosis, some minor flattening of the lumbar lordotic curvature, with well-healed surgical scar in the midline. Lumbar paraspinous muscles show symmetrical on inspection, on palpation shows some moderate tenderness diffusely throughout the upper, middle and lower distribution of the paraspinous muscles without specific trigger points, without radiation of pain. The patient has good rotational motion of the lumbar spine, both laterally as well as extension and flexion without significant difficulty. No tenderness over the spinous processes, sacrum or sacroiliac regions. EXTREMITIES: Lower extremities show deep tendon reflexes 2+ in the patellar and tendo calcaneus tendons. Motor exam is 5 on a scale of 5 with right dorsiflexion, extension, quadriceps and hamstring flexion and 5/5 on the left. Peripheral pulses are 1+ posterior tibial. No peripheral edema is noted bilaterally. Lower extremities are warm and dry to touch, equal in color and appearance. SKIN: Shows warm and dry, good turgor. No edema. No sores, rashes or bruising throughout. Procedure: Procedure: Options were discussed with the patient. Patient chart reviewed as her current medication regimen updated current review of systems updated today as well. We will hold any further injections at this time as patient is waiting for new medications to be tried with her well drill operator and we do not want to increase potential risk for suppression of immune system response. Patient will be given refill prescription for oxycodone as well as Flexeril with instructions side effects aware of each of the medications. Patient has had appropriate K tracts report as well as appropriate urinalyses to date and we will make the prescription for a 1-month timeframe. Patient will return to clinic in approximately 3 weeks as scheduled or sooner if necessary. Medication Injected: Med Injected: None Condition at Discharge: Condition at Discharge: Condition at discharge is stable LEE CA MD Oct 29, 2020 14:22
== END | disposition home or self-care (01) ==
LOC: PNCL 13:11
PROVIDERS: ATTEND Anesthesiology
DX: M54.16 Radiculopathy, lumbar region (principal); M96.1 Postlaminectomy syndrome, not elsewhere classified; M06.9 Rheumatoid arthritis, unspecified; K21.9 Gastro-esophageal reflux disease without esophagitis; F41.9 Anxiety disorder, unspecified; F32.9 Major depressive disorder, single episode, unspecified; Z90.49 Acquired absence of other specified parts of digestive tract; Z98.890 Other specified postprocedural states; Z87.440 Personal history of urinary (tract) infections; Z79.899 Other long term (current) drug therapy; Z88.0 Allergy status to penicillin; Z88.1 Allergy status to other antibiotic agents; Z88.2 Allergy status to sulfonamides; Z91.040 Latex allergy status; Z88.8 Allergy status to other drugs, medicaments and biological substances
CPT/HCPCS: 99212; G0463

== ENCOUNTER → 2020-12-12 | Outpatient (CLI) | payer BC ==
[~2020-12-12] MED LIST changes: +ADAL40PE SQ; +CIPR500T94 PO; +MELO15TA6 PO; +METO-239 PO; +ONDA4TAB12 PO; +TRIA1CAP3 PO; +VITA25006 PO
--- NOTE | 2020-12-12 14:19 | PDOC ---
Progress Note - Pain Clinic Date of Service: DOS: DATE: 12/12/20 TIME: 14:14 Diagnosis: Dx: Lumbar radiculopathy with lumbar postlaminectomy syndrome Rheumatoid arthritis History or Present Illness: HPI: 40-year-old female returns follow-up status post caudal epidural steroid injections and medication management oxycodone. Patient reports she has been doing fairly well and still have some increased pain though in the low back and bilateral lower extremities more on the right than the left posterior gluteus posterior thigh patient reports she has been recently put on Humira by her project technician and is advised to wait on any injections to see how the Humira does first. Patient reports her pain is a 9-10 on scale of 0-10, 10 being the worst, the last week 6-7 on average and 6 at its least is a 7 today. Reports pain is radiating can be constant severe with walking standing with tingling and burning sensation in the legs especially on the right side cramping and stabbing in the back itself tight and shooting in the right leg sharp and aching in the back as well. Patient reports it wakes her from sleep about every 3-4 hours she can use reposition take pain medication or get out of bed and change positions and get back to sleep. Patient reports no new motor or sensory deficits no new bowel or bladder incontinence, or other complaints. Physical Exam: VS: Blood pressure is 136/79 respirations 18 temperature 98.8 F height is 5 feet 7 inches weight is 189 pounds PE: PHYSICAL EXAMINATION: GENERAL: The patient is awake, alert, oriented, appropriate, pleasant in demeanor HEENT: Shows normocephalic, atraumatic. Extraocular movements are intact and symmetrical. NECK: Shows anterior throat supple without palpable lymphadenopathy noted. Swallow reflex symmetrical. CHEST: Shows normal on inspection. Breath sounds are clear bilaterally, no rales or rhonchi. HEART: Shows S1, S2 clear. No murmurs auscultated. ABDOMEN: Soft, nontender, nondistended, obese. No palpable organomegaly is noted. No rebound or guarding demonstrated. BACK: Shows spine grossly in the midline. Normal-appearing cervical lordotic curvature. There is slightly increased thoracic kyphosis, some minor flattening of the lumbar lordotic curvature. Well-healed surgical scar is noted in the lumbar midline. Lumbar paraspinous muscles show symmetrical on inspection, on palpation shows some moderate tenderness diffusely throughout the upper, middle and lower distribution of the paraspinous muscles without specific trigger points, without radiation of pain. The patient has good rotational motion of the lumbar spine, both laterally as well as extension and flexion without significant difficulty. No tenderness over the spinous processes, sacrum or sacroiliac regions. EXTREMITIES: Lower extremities show deep tendon reflexes 2+ in the patellar and tendo calcaneus tendons. Motor exam is 5 on a scale of 5 with right dorsiflexion, extension, quadriceps and hamstring flexion and 5/5 on the left. Peripheral pulses are 1+ posterior tibial. No peripheral edema is noted bilaterally. Lower extremities are warm and dry to touch, equal in color and appearance. SKIN: Shows warm and dry, good turgor. No edema. No sores, rashes or bruising throughout. Procedure: Procedure: Options were discussed with the patient. Patient chart reviews her current medication regimen updated current review of systems updated today as well. We will refill patient's oxycodone 7.5 mg with instructions side effects beware discussed with the medication. Also will add meloxicam 15 mg 1 tablet daily. Patient is given instruction as well as side effects to be aware of these medications and will follow-up in approximate 4 weeks as scheduled. Medication Injected: Med Injected: None Condition at Discharge: Condition at Discharge: Condition at discharge is stable. LEE CA MD Dec 12, 2020 14:19
== END | disposition home or self-care (01) ==
LOC: PNCL 13:24
PROVIDERS: ATTEND Anesthesiology
DX: M54.16 Radiculopathy, lumbar region (principal); M96.1 Postlaminectomy syndrome, not elsewhere classified; M06.9 Rheumatoid arthritis, unspecified; K21.9 Gastro-esophageal reflux disease without esophagitis; M19.90 Unspecified osteoarthritis, unspecified site; F41.9 Anxiety disorder, unspecified; F32.9 Major depressive disorder, single episode, unspecified; Z87.440 Personal history of urinary (tract) infections; Z90.49 Acquired absence of other specified parts of digestive tract; Z98.890 Other specified postprocedural states; Z79.899 Other long term (current) drug therapy; Z72.89 Other problems related to lifestyle; Z88.0 Allergy status to penicillin; Z88.2 Allergy status to sulfonamides; Z88.1 Allergy status to other antibiotic agents; Z91.040 Latex allergy status; Z88.8 Allergy status to other drugs, medicaments and biological substances
CPT/HCPCS: 99212; G0463

== ENCOUNTER 2020-12-15 13:27 | Emergency (ER) | payer BC, OTHER ==
[~2020-12-15] VITALS: Ht 170.2 cm; Wt 79.5 kg
[~2020-12-15 13:27] MED LIST changes: -CIPR500T94 PO; -MELO15TA6 PO; -METO-239 PO; -ONDA4TAB12 PO; -TRIA1CAP3 PO
[2020-12-15 14:29] LABS: BILIRUBIN,URINE NEGATIVE (NEG); CLARITY,URINE CLEAR; COLOR,URINE YELLOW; NITRITE,URINE NEGATIVE (NEG); PROTEIN,URINE NEGATIVE (NEG-TRACE); UROBILINOGEN,URINE 0.2 mg/dL (0.2 mg/dL)
[2020-12-15 14:34] LABS: BACTERIA,URINE MANY /HPF (0-FEW); RBC,URINE >40 /HPF (0-2)
[2020-12-15 14:36] LABS: WBC,URINE OCC /HPF (0-4)
[2020-12-15] MEDS ORDERED: TAMSULOSIN 0.4 MG CAP.ER.24H. PO ONE (14:45)
[2020-12-15] MEDS ORDERED: fentaNYL PF VIAL 100 MCG/2 ML VIAL IVP ONE (14:45)
[2020-12-15] MEDS ORDERED: IV NORMAL SALINE 1000ML BAG 1,000 ML IV ONE (14:45)
[2020-12-15] MEDS ORDERED: ONDANSETRON PF 4 MG/2 ML VIAL. IVP ONE (14:45)
--- NOTE | 2020-12-15 14:45 | PHYS DOC ---
Past Medical History Past Medical History: Anxiety, Depression, GERD, Kidney Stone Additional Past Medical Histor: DDD, Chronic Back Pain Past Surgical History: Cholecystectomy Additional Past Surgical Histo: back sx, ovarian cysts,exp. lap Smoking Status: Never Smoker Alcohol Use: None Drug Use: None General Adult EDM: Chief Complaint: FLANK PAIN HPI: HPI: Patient is a 40 year old female with history of anxiety, depression, kidney stones, who presents today complaining of 8 out of 10 sharp constant left upper quadrant abdominal pain radiating to the left flank region, symptoms began this morning when she got up. Patient is also complaining of nausea with no vomiting. Patient is also complaining of dysuria, denies any fever. Denies any diarrhea. Denies anything specifically exacerbating or relieving the pain. She states she has had similar pain in 2016 when she had a kidney stone. Review of Systems: Review of Systems: Constitutional: Denies fever or chills. [] Eyes: Denies change in visual acuity. [] HENT: Denies nasal congestion or sore throat. [] Respiratory: Denies cough or shortness of breath. [] Cardiovascular: Denies chest pain or edema. [] GI: Reports left upper quadrant abdominal pain with nausea, denies vomiting, bloody stools or diarrhea. [] : Reports left flank pain, dysuria. Musculoskeletal: Denies back pain or joint pain. [] Integument: Denies rash. [] Neurologic: Denies headache, focal weakness or sensory changes. [] Psychiatric: Denies depression or anxiety. [] Heart Score: Risk Factors: Risk Factors: DM, Current or recent (<one month) smoker, HTN, HLP, family hist ory of CAD, obesity. Risk Scores: Score 0 - 3: 2.5% MACE over next 6 weeks - Discharge Home Score 4 - 6: 20.3% MACE over next 6 weeks - Admit for Clinical Observation Score 7 - 10: 72.7% MACE over next 6 weeks - Early Invasive Strategies Current Medications: Current Medications Medications (Trade) Dose Ordered Sig/Dirk Start Time Stop Time Status Last Admin Dose Admin Fentanyl Citrate (Fentanyl 2ml Vial) 50 mcg 1X ONCE 12/15/20 14:45 12/15/20 14:46 UNV Ondansetron HCl (Zofran) 4 mg 1X ONCE 12/15/20 14:45 12/15/20 14:46 UNV Sodium Chloride 1,000 ml @ 1,000 mls/hr 1X ONCE 12/15/20 14:45 12/15/20 15:44 UNV Tamsulosin HCl (Flomax) 0.4 mg 1X ONCE 12/15/20 14:45 12/15/20 14:46 UNV Allergies: Allergies: Allergies Coded Allergies Type Severity Reaction Last Updated Verified Penicillins Allergy Intermediate PALPITATIONS/HIVES 04/11/19 Yes Sulfa (Sulfonamide Antibiotics) Allergy Intermediate PALPITATIONS/HIVES 04/11/19 Yes clarithromycin Allergy Intermediate palpitations/hives 04/11/19 Yes diphenhydramine Allergy Intermediate HEART RACES 04/11/19 Yes latex Allergy Intermediate Hives 04/11/19 No prochlorperazine edisylate Allergy Intermediate palpitaions/hives 04/11/19 Yes gabapentin Adverse Reaction Intermediate 04/11/19 Yes metaxalone Adverse Reaction Intermediate Palpitations 04/11/19 Yes pregabalin Adverse Reaction Intermediate Palpitations 04/11/19 Yes Physical Exam: PE: Constitutional: Well developed, well nourished, no acute distress, non-toxic appearance. [] HENT: Normocephalic, atraumatic, bilateral external ears normal, oropharynx moist, no oral exudates, nose normal. [] Eyes: PERRLA, EOMI, conjunctiva normal, no discharge. [] Neck: Normal range of motion, no tenderness, supple, no stridor. [] Cardiovascular:Heart rate regular rhythm, no murmur [] Lungs & Thorax: Bilateral breath sounds clear to auscultation [] Abdomen: Bowel sounds normal, soft, no tenderness, no masses, no pulsatile masses. [] Skin: Warm, dry, no erythema, no rash. [] Back: No tenderness, mild left CVA tenderness. [] Extremities: No tenderness, no cyanosis, no clubbing, ROM intact, no edema. [] Neurologic: Alert and oriented X 3, normal motor function, normal sensory function, no focal deficits noted. [] Psychologic: Flat affect Current Patient Data: Labs: Laboratory Tests Test 12/15/20 13:40 Urine Collection Type Unknown Urine Color Yellow Urine Clarity Clear Urine pH 6.0 (<5.0-8.0) Urine Specific [place] 1.020 (1.000-1.030) Urine Protein Negative mg/dL (NEG-TRACE) Urine Glucose (UA) Negative mg/dL (NEG) Urine Ketones (Stick) Negative mg/dL (NEG) Urine Blood Large (NEG) Urine Nitrite Negative (NEG) Urine Bilirubin Negative (NEG) Urine Urobilinogen Dipstick 0.2 mg/dL (0.2 mg/dL) Urine Leukocyte Esterase Negative (NEG) Urine RBC >40 /HPF (0-2) Urine WBC Occ /HPF (0-4) Urine Squamous Epithelial Cells Mod /LPF Urine Bacteria Many /HPF (0-FEW) Urine Mucus Mod /LPF EKG: EKG: [] Radiology/Procedures: Radiology/Procedures: []PROCEDURE: CT ABDOMEN PELVIS WO CONTRAST Study: CT abdomen/pelvis without intravenous contrast Indication: Left flank pain. History of kidney stones. Comparison: 07/26/2018 Technique: Helical CT imaging performed of the abdomen and pelvis without the use of intravenous contrast. Sagittal and coronal reformats were obtained. One or more of the following individualized dose reduction techniques were utilized for this examination: 1. Automated exposure control 2. Adjustment of the mA and/or kV according to patient size 3. Use of iterative reconstruction technique. Findings: Inherently limited evaluation without intravenous contrast. Small hiatal hernia. No acute abnormality or suspicious nodule at the lower lung zones. Diffuse hepatic steatosis. Surgically absent gallbladder. Unremarkable pancreas. The size of the spleen. No adrenal gland mass. Hydroureteronephrosis on the left and findings of obstructive uropathy in the setting of a 4.5 mm stone obstructing the proximal third of the ureter around 5 cm distal to the ureteropelvic junction. Additional punctate nonobstructing intrarenal stone at the lower pole on the left. Tiny nonobstructing interpolar stone on the right. The right collecting system is nondilated. Within normal limits urinary bladder. Poorly evaluated uterus without contrast but with a similar morphology to the prior. No discrete adnexal mass though there is a small right ovarian cystic focus measuring approximately 1.7 cm. Unremarkable colon, small bowel and stomach. Nonaneurysmal aorta. No lymphadenopathy. No acute or aggressive osseous process. Operative changes of dorsal decompression at L4/L5 and L5-S1. Impression: 1. Hydronephrosis on the left, perinephric inflammation and edematous prominence of the kidney in the setting of a 4.5 mm obstructing stone located within the proximal ureter around 5 cm distal to the ureteropelvic junction. Additional solitary punctate intrarenal stones within both kidneys. No collecting system obstruction on the right. 2. Hepatic steatosis. Electronically signed by: ATTILA EDWARDS MD (12/15/2020 3:51 PM) [id number] DICTATED and SIGNED BY: ATTILA EDWARDS MD DATE: 12/15/20 [id number] 0 Course & Med Decision Making: Course & Med Decision Making Pertinent Labs and Imaging studies reviewed. (See chart for details) This is a 40-year-old female patient presenting to the ED today with left upper quadrant abdominal pain radiating to the left flank region, symptoms began this morning. History of kidney stones. Also complaining of dysuria. Urine analysis positive for large amount of blood, no nitrates, no leukocytes, CBC with a WBC of 15.0, CMP with nothing really acute. CT of the abdomen and pelvic was noted for, left hydronephrosis with perinephric neck inflammation and edematous prominence to the kidney in the setting of a 4.5 mm obstructing stone located within the proximal ureter around 5 cm distal to the ureteropelvic junction. Additional solitary punctate intrarenal stones within both kidneys. No collecting system obstruction on the right and hepatic steatosis. Patient was given morphine, Dilaudid, Zofran, Flomax, Toradol, pain is very well managed. She is preferring not to be admitted to any hospital because of Covid and her history of rheumatoid arthritis. She was discharged to home with Flomax, Cipro, Zofran, naproxen, K tracs shows she filled rx for oxycodone 7.5/325mg from Dr. Peralta at the pain clinic 18 days supply filled on 12/12/2020. She already has a urologist for follow-up. Dragon Disclaimer: Dragon Disclaimer: This electronic medical record was generated, in whole or in part, using a voice recognition dictation system. Departure Departure Impression: Primary Impression: Hydronephrosis, left Additional Impression: Kidney stones Disposition: 01 DC HOME SELF CARE/HOMELESS Condition: STABLE Referrals: DARRICK MENDEZ MD (PCP) Follow-up with the urologist on Thursday Patient Instructions: Kidney Stones, [id number] Additional Instructions: You were evaluated in the emergency room and noted to have kidney stones. Please follow-up with your urologist on Thursday. Take the prescribed medications as ordered. Scripts Ciprofloxacin Hcl (CIPRO) 500 Mg Tablet 1 TAB PO BID for 7 Days, #14 TAB 0 Refills Prov: NATALIA ANN APRN 12/15/20 Ondansetron (ONDANSETRON ODT) 4 Mg Tab.rapdis 1 TAB PO PRN Q6-8HRS, #16 TAB Prov: NATALIA ANN APRN 12/15/20 Tamsulosin Hcl (FLOMAX) 0.4 Mg Cap.er.24h 1 CAP PO DAILY, #6 CAP Prov: NATALIA ANN APRN 12/15/20 NATALIA ANN APRN Dec 15, 2020 14:45
[2020-12-15 14:54] LABS: BASO # 0.1 x10^3/uL (0.0-0.2); BASO % 1 % (0-3); EOS # 0.2 x10^3/uL (0.0-0.7); EOS % 1 % (0-3); HEMATOCRIT 40.7 % (36.0-47.0); HEMOGLOBIN 13.8 g/dL (12.0-15.5); LYMPH # 2.2 x10^3/uL (1.0-4.8); LYMPH % 15 % (24-48); MEAN CORPUSCULAR HEMOGLOBIN 29 pg (25-35); MEAN CORPUSCULAR HGB CONC 34 g/dL (31-37); MEAN CORPUSCULAR VOLUME 86 fL (79-100); MONO # 0.8 x10^3/uL (0.0-1.1); MONO % 5 % (0-9); NEUT # 11.7 x10^3/uL (1.8-7.7); NEUT % 78 % (31-73); PLATELET COUNT 293 x10^3/uL (140-400); RED BLOOD COUNT 4.71 x10^6/uL (3.50-5.40); RED CELL DISTRIBUTION WIDTH 14.3 % (11.5-14.5)
[2020-12-15 14:54] LABS: BARBITURATES NEG (NEG); BENZODIAZEPINES NEG (NEG); CANNABINOIDS NEG (NEG); COCAINE NEG (NEG); METHADONE NEG (NEG); OPIATES NEG (NEG); PHENCYCLIDINE NEG (NEG)
[2020-12-15 15:01] LABS: AMPHETAMINE/METHAMPHETAMINE NEG (NEG)
[2020-12-15 15:07] LABS: CALCIUM 8.9 mg/dL (8.5-10.1); CREATININE 1.2 mg/dL (0.6-1.0); GFR 49.5; POTASSIUM 3.4 mmol/L (3.5-5.1); PREG TEST PT QUAL NEGATIVE (NEG)
[2020-12-15 15:13] LABS: ALBUMIN 4.1 g/dL (3.4-5.0); ALBUMIN/GLOBULIN RATIO 1.1 (1.0-1.7); TOTAL BILIRUBIN 1.1 mg/dL (0.2-1.0); TOTAL PROTEIN 7.8 g/dL (6.4-8.2)
--- NOTE | 2020-12-15 15:53 | RAD ---
Study: CT abdomen/pelvis without intravenous contrast Indication: Left flank pain. History of kidney stones. Comparison: 07/26/2018 Technique: Helical CT imaging performed of the abdomen and pelvis without the use of intravenous cont rast. Sagittal and coronal reformats were obtained. One or more of the following individualized dose reduction techniques were utilized for this examinat ion: 1. Automated exposure control 2. Adjustment of the mA and/or kV according to patient size 3. Use of iterative reconstruction technique. Findings: Inherently limited evaluation without intravenous contrast. Small hiatal hernia. No acute abnormality or suspicious nodule at the lower lung zones. Diffuse hepatic steatosis. Surgically absent gallbladder. Unremarkable pancreas. The size of the sple en. No adrenal gland mass. Hydroureteronephrosis on the left and findings of obstructive uropathy in the setting of a 4.5 mm sto ne obstructing the proximal third of the ureter around 5 cm distal to the ureteropelvic junction. Add itional punctate nonobstructing intrarenal stone at the lower pole on the left. Tiny nonobstructing i nterpolar stone on the right. The right collecting system is nondilated. Within normal limits urinary bladder. Poorly evaluated uterus without contrast but with a similar mor phology to the prior. No discrete adnexal mass though there is a small right ovarian cystic focus sandeep suring approximately 1.7 cm. Unremarkable colon, small bowel and stomach. Nonaneurysmal aorta. No lymphadenopathy. No acute or aggressive osseous process. Operative changes of dorsal decompression at L4/L5 and L5-S1. Impression: 1. Hydronephrosis on the left, perinephric inflammation and edematous prominence of the kidney in th e setting of a 4.5 mm obstructing stone located within the proximal ureter around 5 cm distal to the ureteropelvic junction. Additional solitary punctate intrarenal stones within both kidneys. No collec ting system obstruction on the right. 2. Hepatic steatosis. Electronically signed by: ATTILA EDWARDS MD (12/15/2020 3:51 PM) [id number]
[2020-12-15] MEDS ORDERED: HYDROmorphone 2 MG/ML VIAL ONE (16:08)
[2020-12-15] MEDS ORDERED: HYDROmorphone 2 MG/ML VIAL IVP ONE (16:15)
[2020-12-15] MEDS ORDERED: KETOROLAC 30 MG/ML VIAL. IVP ONE (16:15)
[2020-12-15] MEDS ORDERED: methylPREDNISolone SOD SUCC PF 125 MG/2 ML VIAL. IV ONE (16:30)
[2020-12-15] MEDS ORDERED: TAMS0.4C97 PO (17:14)
[2020-12-15] MEDS ORDERED: ONDA4TAB12 PO (17:14)
[2020-12-15] MEDS ORDERED: CIPR500T94 PO (17:15)
[2020-12-15 17:51] VITALS: BP 131/84
== END 2020-12-15 17:58 | disposition home or self-care (01) ==
LOC: ER 13:27
DX: N13.2 Hydronephrosis with renal and ureteral calculous obstruction (principal); K76.0 Fatty (change of) liver, not elsewhere classified; K21.9 Gastro-esophageal reflux disease without esophagitis; G89.29 Other chronic pain; Z90.49 Acquired absence of other specified parts of digestive tract; Z88.0 Allergy status to penicillin; Z88.2 Allergy status to sulfonamides; Z88.5 Allergy status to narcotic agent; Z91.040 Latex allergy status; Z88.8 Allergy status to other drugs, medicaments and biological substances
CPT/HCPCS: 36415; 74176; 80053; 80307; 81001; 83690; 84703; 85025; 87086; 96361; 96374; 96375; 99285; G0480; J1170; J1885; J2405; J3010; J7030

== ENCOUNTER → 2021-02-26 | Outpatient (CLI) | payer BC ==
[~2021-02-26] MED LIST changes: +CIPR500T94 PO; +IOHEXOL 180 MG/ML 10 ML VIAL. ONE; +ONDA4TAB12 PO; +methylPREDNISolone ACETATE 40 MG/ML VIAL. ONE; +methylPREDNISolone ACETATE 80 MG/ML VIAL. ONE
--- NOTE | 2021-02-26 14:31 | PDOC ---
Progress Note - Pain Clinic Date of Service: DOS: DATE: 02/26/21 TIME: 14:27 Diagnosis: Dx: Lumbar radiculopathy with lumbar postlaminectomy syndrome History or Present Illness: HPI: 40-year-old female returns to follow-up status post medication management with hydrocodone also meloxicam and caudal epidural steroid injections most recently June 2020. Patient returns today reporting significant pain increasing in the low back and bilateral lower extremities fairly well controlled with the hydrocodone, about 70% but last week she had a kidney stone as well which required endoscopic removal and the pain is returned in the low back and radiating to bilateral posterior gluteus posterior thighs posterior calves and described as tingling burning cramping and stabbing in the back shooting and aching in the legs sharp in the legs as well as tight in the back and shooting and radiating lower extremities patient reports it can be constant severe worse with walking standing changing positions rates it is a 10 on scale 10 is worse over the past week 7-8 on average 7 its least is a 7 today. Patient reports it wakes her from sleep about once every 4 hours patient reports no new motor or sensory deficits no bowel or bladder incontinence. Physical Exam: VS: Blood pressure is 156/113 pulse 96 respirations 18 temperature 95.4 F height is 5 feet 7 inches weight is 181 pounds PE: PHYSICAL EXAMINATION: GENERAL: The patient is awake, alert, oriented, appropriate, very pleasant demeanor HEENT: Shows normocephalic, atraumatic. Extraocular movements are intact and symmetrical. Oral cavity: Mucous membranes moist and pink. Dentition is intact. NECK: Shows anterior throat supple without palpable lymphadenopathy noted. Swallow reflex symmetrical. CHEST: Shows normal on inspection. Breath sounds are clear bilaterally, no rales or rhonchi auscultated. HEART: Shows S1, S2 clear. No murmurs auscultated. ABDOMEN: Soft, nontender, nondistended, obese. No palpable organomegaly is noted. BACK: Shows spine grossly in the midline. Normal-appearing cervical lordotic curvature. There is slightly increased thoracic kyphosis, some minor flattening of the lumbar lordotic curvature. Well-healed midline surgical scars noted in the lumbar distribution. Lumbar paraspinous muscles show symmetrical on inspection, on palpation shows some moderate tenderness diffusely throu 5 ghout the upper, middle and lower distribution of the paraspinous muscles, but without specific trigger points, without radiation of pain. The patient has good rotational motion of the lumbar spine, both laterally as well as extension and flexion without significant difficulty. No tenderness over the spinous processes, sacrum or sacroiliac regions. EXTREMITIES: Lower extremities show deep tendon reflexes at 2+ in the patellar and tendo calcaneus tendons bilaterally, motor exam is 5 out of 5 with dorsiflexion tension quadricep and hamstring flexion symmetrical. No peripheral edema is noted bilaterally. Lower extremities are warm and dry to touch, equal in color and appearance. SKIN: Shows warm and dry, good turgor. No edema. No sores, rashes or bruising throughout. Procedure: Procedure: Options were discussed with the patient. Patient's old chart was reviewed as her current medication regimen updated current review of systems updated today as well. We will proceed with a caudal approach epidural steroid injection stable fluoroscopic guidance. Risks were discussed including but not limited to: Bleeding, infection, possibility of epidural hematoma and subsequent neurological compromise, dural puncture, headaches, spinal cord and/or nerve damage, side effects of steroid medication, and poor results regarding pain control. Patient understands and wished to proceed. Patient will return to the clinic in approximate 2 weeks for follow-up, was counseled as return appointment, activity level, and side effects to be aware of. Patient is given refill prescription for hydrocodone as well with instructions side effects aware with the medication. Patient has had appropriate K tracks report as well as appropriate urinalyses to date. Medication Injected: Med Injected: Procedure is lumbar epidural steroid injection under local anesthetic using sterile prep and drape at the caudal level using C-arm fluoroscopic guidance in both AP and lateral views medications injected is 120 mg Depo-Medrol + 10 mL preservative-free normal saline and 2 mL contrast- condition at discharge is stable patient tolerated procedure well had no complications. Condition at Discharge: Condition at Discharge: Condition at discharge is stable, patient alert the procedure well and had no complications. LEE CA MD Feb 26, 2021 14:31
--- NOTE | 2021-02-26 14:32 | PDOC4 ---
PROCEDURE Procedure Patient was consented for lumbar epidural steroid injection. Risks were dis cussed including but not limited to: Bleeding, infection, possibility of epidural hematoma and subsequent neurological compromise, dural puncture, headaches, spinal cord and/or nerve damage, side effects of steroid medication, and poor results regarding pain control. Patient understands and wished to proceed. Procedure is lumbar epidural steroid injection under local anesthetic using sterile prep and drape at the caudal level using C-arm fluoroscopic guidance in both AP and lateral views medications injected is 120 mg Depo-Medrol + 10 mL preservative-free normal saline and 2 mL contrast- condition at discharge is stable patient tolerated procedure well had no complications. LEE CA MD Feb 26, 2021 14:32
== END | disposition home or self-care (01) ==
LOC: PNCL 13:29
PROVIDERS: ATTEND Anesthesiology
DX: M54.16 Radiculopathy, lumbar region (principal); M96.1 Postlaminectomy syndrome, not elsewhere classified; K21.9 Gastro-esophageal reflux disease without esophagitis; M19.90 Unspecified osteoarthritis, unspecified site; F41.9 Anxiety disorder, unspecified; F32.9 Major depressive disorder, single episode, unspecified; Z90.49 Acquired absence of other specified parts of digestive tract; Z72.89 Other problems related to lifestyle; Z98.890 Other specified postprocedural states; Z88.0 Allergy status to penicillin; Z88.2 Allergy status to sulfonamides; Z88.8 Allergy status to other drugs, medicaments and biological substances; Z88.1 Allergy status to other antibiotic agents
CPT/HCPCS: 62323; J1030; J1040; Q9965; 77002

== ENCOUNTER → 2021-04-10 | Outpatient (CLI) | payer BC ==
[~2021-04-10] MED LIST changes: -IOHEXOL 180 MG/ML 10 ML VIAL. ONE; +MELO15TA6 PO; -methylPREDNISolone ACETATE 40 MG/ML VIAL. ONE; -methylPREDNISolone ACETATE 80 MG/ML VIAL. ONE
--- NOTE | 2021-04-10 15:42 | PDOC ---
Progress Note - Pain Clinic Date of Service: DOS: DATE: 04/10/21 TIME: 15:37 Diagnosis: Dx: Lumbar radiculopathy with lumbar postlaminectomy syndrome History or Present Illness: HPI: 40-year-old female returns for follow-up status post caudal epidural steroid injection x1 with very good results of near 100% improvement in the sciatic Pain in her right lower extremity for about 7 weeks now patient reports pain returning over the past few days in the low back and the right lower extremity posterior gluteus posterior thigh posterior calf to the ankle worse with walking standing better with sitting or laying down patient reports it generally not awaken her from sleep at night patient reports no new motor or sensory deficits reports the pain is a 10 on scale 10 is worse over the past week 7-8 on average and a 7 his least is an 8 today patient ports aching sharp tightness shooting in the low back and right leg burning and tingling in the back and the leg with some cramping pain the low back can be constant severe with activity better with sitting or laying down patient reports initially he was doing much better with distance walking doing household activities work activities travel with greater ease and comfort now the pain returning as noted. Patient reports no new motor or sensory deficits no new bowel or bladder incontinence or other complaints. Patient continues to do stretching and strengthening exercises on her own as well as taking meloxicam and Tylenol [id number] also patient taking oxycodone without any significant side effects. Physical Exam: VS: Blood pressure is 1 40 out of 112 pulse 77 respirations are 20 temperature is 98.9 F height is 5 foot 7 inches weight is 183 pounds. PE: PHYSICAL EXAMINATION: GENERAL: The patient is awake, alert, oriented, appropriate, very pleasant demeanor HEENT: Shows normocephalic, atraumatic. Extraocular movements are intact and symmetrical. Oral cavity: Mucous membranes moist and pink. Dentition is intact. NECK: Shows anterior throat supple without palpable lymphadenopathy noted. Swallow reflex symmetrical. CHEST: Shows normal on inspection. Breath sounds are clear bilaterally. HEART: Shows S1, S2 clear. No murmurs auscultated. ABDOMEN: Soft, nontender, nondistended, obese. No palpable organomegaly is noted. BACK: Shows spine grossly in the midline. Normal-appearing cervical lordotic curvature. There is slightly increased thoracic kyphosis, some minor flattening of the lumbar lordotic curvature. Well-healed midline surgical scar is noted. Lumbar paraspinous muscles show symmetrical on inspection, on palpation shows some moderate tenderness diffusely throughout the upper, middle and lower distribution of the paraspinous muscles, but without specific trigger points, without radiation of pain. The patient has good rotational motion of the lumbar spine, both laterally as well as extension and flexion without significant difficulty. EXTREMITIES: Lower extremities show deep tendon reflexes 2+ in the patellar and tendo calcaneus tendons. Motor exam is 5 on a scale of 5 with right dorsiflexion, extension, quadriceps and hamstring flexion and 5/5 on the left. Peripheral pulses are 1+ posterior tibial. No peripheral edema is noted bilaterally. Lower extremities are warm and dry to touch, equal in color and appearance. Straight leg raise noted to be positive on the right about 40 degrees, left side is negative. SKIN: Shows warm and dry, good turgor. No edema. No sores, rashes or bruising throughout. Procedure: Procedure: Options discussed with the patient. Patient chart was reviewed as her current medication regimen updated current review of systems updated today as well. We will preauthorize patient for second caudal approach epidural steroid injection with fluoroscopic guidance. Patient did very well after the first injection pain returning down radicular fashion L5-S1 dermatomal distribution on the right. Patient continue with oral analgesics as well as anti-inflammatories and stretching strength exercises on her own at home as currently performing. Medication Injected: Med Injected: None Condition at Discharge: Condition at Discharge: Condition at discharge is stable. LEE CA MD April 10, 2021 15:42
== END | disposition home or self-care (01) ==
LOC: PNCL 14:10
PROVIDERS: ATTEND Anesthesiology
DX: M54.16 Radiculopathy, lumbar region (principal); M96.1 Postlaminectomy syndrome, not elsewhere classified; K21.9 Gastro-esophageal reflux disease without esophagitis; M19.90 Unspecified osteoarthritis, unspecified site; F41.9 Anxiety disorder, unspecified; F32.9 Major depressive disorder, single episode, unspecified; Z90.49 Acquired absence of other specified parts of digestive tract; Z98.890 Other specified postprocedural states; Z79.899 Other long term (current) drug therapy; Z88.0 Allergy status to penicillin; Z88.1 Allergy status to other antibiotic agents; Z88.2 Allergy status to sulfonamides; Z91.040 Latex allergy status; Z88.8 Allergy status to other drugs, medicaments and biological substances
CPT/HCPCS: 99212; G0463

== ENCOUNTER → 2021-05-09 | Outpatient (CLI) | payer BC ==
[~2021-05-09] MED LIST changes: +IOHEXOL 180 MG/ML 10 ML VIAL. ONE; +METO-239 PO; +TRIA1CAP3 PO; +methylPREDNISolone ACETATE 40 MG/ML VIAL. ONE; +methylPREDNISolone ACETATE 80 MG/ML VIAL. ONE
--- NOTE | 2021-05-09 13:58 | PDOC ---
Progress Note - Pain Clinic Date of Service: DOS: DATE: 05/09/21 TIME: 13:55 Diagnosis: Dx: Lumbar radiculopathy with lumbar postlaminectomy syndrome History or Present Illness: HPI: 40-year-old female returns for follow-up status post caudal epidural steroid injections and medication management with oxycodone and meloxicam. Patient reports to be doing fairly well with the meloxicam and the oxycodone without any specific side effects pain is returning in the low back and right lower extremity however posterior gluteus posterior thigh posterior calf on the right side worse with standing walking changing positions better with sitting or laying down is been waking her from sleep at least once or twice a night patient rates the pain is a 10 on a scale of 10 is worse over the past week 7 on average 6 its least and is a 7 today patient scribes aching and tight in the back shooting and sharp in the right lower extremity with tingling burning some cramping pain as well can be unbearable with walking standing and can be radiating and constant as well with walking and standing better with sitting. Patient reports no new motor or sensory deficits no new bowel or bladder incontinence or other complaints. Physical Exam: VS: Blood pressure is 129/95 pulse 80 respirations 18 F height is 5 foot 7 inches weight is 183 PE: PHYSICAL EXAMINATION: GENERAL: The patient is awake, alert, oriented, appropriate, very pleasant in demeanor HEENT: Shows normocephalic, atraumatic. Extraocular movements are intact and symmetrical. Patient wearing eyeglasses. Oral cavity: Mucous membranes moist and pink. Dentition is intact. NECK: Shows anterior throat supple without palpable lymphadenopathy noted. Swallow reflex symmetrical. CHEST: Shows normal on inspection. Breath sounds are clear bilaterally, no rales or rhonchi auscultated. HEART: Shows S1, S2 clear. No murmurs auscultated. ABDOMEN: Soft, nontender, nondistended, obese. BACK: Shows spine grossly in the midline. Normal-appearing cervical lordotic curvature. There is slightly increased thoracic kyphosis, some minor flattening of the lumbar lordotic curvature. Lumbar paraspinous muscles show symmetrical on inspection, on palpation shows some moderate tenderness diffusely throughout the upper, middle and lower distribution of the paraspinous muscles, but without specific trigger points, without radiation of pain. The patient has good rotational motion of the lumbar spine, both laterally as well as extension and flexion without difficulty. EXTREMITIES: Lower extremities show deep tendon reflexes 2+ in the patellar and tendo calcaneus tendons. Motor exam is 5 on a scale of 5 with right dorsiflexion, extension, quadriceps and hamstring flexion and 5/5 on the left. Peripheral pulses are 1+ posterior tibial. No peripheral edema is noted bilaterally. Lower extremities are warm and dry. SKIN: Shows warm and dry, good turgor. No edema. No sores, rashes or bruising throughout. Procedure: Procedure: Options were discussed with the patient. Patient chart was reviewed as her current medication regimen updated current review of systems updated today as well. We will proceed with a second in the series caudal approach epidural steroid injection stable fluoroscopic guidance. Risks were discussed including but not limited to: Bleeding, infection, possibility of epidural hematoma and subsequent neurological compromise, dural puncture, headaches, spinal cord and/or nerve damage, side effects of steroid medication, and poor results regarding pain control. Patient understands and wished to proceed. Patient return to clinic in approximately 4 weeks for follow-up, was counseled as return appointment activity level and side effects beware. Patient is given refill prescription for oxycodone with instructions side effects beware of discussed as well. Patient has had appropriate K tracts reporting as well as appropriate urinalyses to date and we will refill this for 1 month period. Medication Injected: Med Injected: Procedure is lumbar epidural steroid injection under local anesthetic using sterile prep and drape at the caudal level using C-arm fluoroscopic guidance in both AP and lateral views medications injected is 120 mg Depo-Medrol +10mL pre servative-free normal saline and 2 mL contrast- condition at discharge is stable patient tolerated procedure well had no complications. Condition at Discharge: Condition at Discharge: Condition at discharge stable, patient already procedure well and had no complications. LEE CA MD May 09, 2021 13:58
--- NOTE | 2021-05-09 13:59 | PDOC4 ---
PROCEDURE Procedure Patient was consented for caudal approach epidural steroid injection. Risks were discussed including but not limited to: Bleeding, infection, possibility of epidural hematoma and subsequent neurological compromise, dural puncture, headaches, spinal cord and/or nerve damage, side effects of steroid medication, and poor results regarding pain control. Patient understands and wished to proceed. Procedure is lumbar epidural steroid injection under local anesthetic using sterile prep and drape at the caudal level using C-arm fluoroscopic guidance in both AP and lateral views medications injected is 120 mg Depo-Medrol +10mL preservative-free normal saline and 2 mL contrast- condition at discharge is stable patient tolerated procedure well had no complications. LEE CA MD May 09, 2021 13:59
== END | disposition home or self-care (01) ==
LOC: PNCL 13:14
PROVIDERS: ATTEND Anesthesiology
DX: M54.16 Radiculopathy, lumbar region (principal); M96.1 Postlaminectomy syndrome, not elsewhere classified; K21.9 Gastro-esophageal reflux disease without esophagitis; M19.90 Unspecified osteoarthritis, unspecified site; F41.9 Anxiety disorder, unspecified; F32.9 Major depressive disorder, single episode, unspecified; Z87.440 Personal history of urinary (tract) infections; Z90.49 Acquired absence of other specified parts of digestive tract; Z98.890 Other specified postprocedural states; Z79.899 Other long term (current) drug therapy; Z88.0 Allergy status to penicillin; Z88.1 Allergy status to other antibiotic agents; Z88.2 Allergy status to sulfonamides; Z91.040 Latex allergy status; Z88.8 Allergy status to other drugs, medicaments and biological substances
CPT/HCPCS: 62323; J1030; J1040; Q9965

== ENCOUNTER → 2021-07-31 | Outpatient (CLI) | payer BC ==
[~2021-07-31] MED LIST changes: +DICL20GE TP; -IOHEXOL 180 MG/ML 10 ML VIAL. ONE; +LEFL10TA14 PO; +OXYC1TAB19 PO; -methylPREDNISolone ACETATE 40 MG/ML VIAL. ONE; -methylPREDNISolone ACETATE 80 MG/ML VIAL. ONE
--- NOTE | 2021-07-31 14:51 | PDOC ---
Progress Note - Pain Clinic Date of Service: DOS: DATE: 07/31/21 TIME: 14:46 Diagnosis: Dx: Lumbar radiculopathy with lumbar postlaminectomy syndrome Rheumatoid arthritis Psoriatic arthritis History or Present Illness: HPI: 41-year-old female returns for follow-up status post caudal epidural steroid injection x2 patient reports doing very well after last injection with about 80% improvement for several weeks following the injection but the pain is returned now in the low back bilateral lower extremities posterior gluteus posterior thigh posterior calves right essentially equal to left patient reports that she is also having some significant pain from her arthritis has had 2 IM steroid shots within the last month from her mail handler assistant with some decrease in the pain but she reports that she was unable to get a bed for almost a week because of the pain prior to the shots patient reports her pain now is in the low back mid back upper back neck shoulders especially the hands bilaterally with fine motor movements as well as regular activities of daily living. Patient reports her pain is a 10 on scale 10 is worst 9-10 on average 8 its least is a 9 today. Patient reports it wakes her from sleep at night reports the pain is tingling burning cramping stabbing aching sharp tight and shooting in the back and legs radiating lower extremities can be constant severe especially in the hands. Patient reports bladder incontinence. Physical Exam: VS: Blood pressure is 147/102 pulse 81 respirations 18 temperature 99.1 F height 5 feet 7 inches weight 181 pounds PE: PHYSICAL EXAMINATION: GENERAL: The patient is awake, alert, oriented, appropriate, very pleasant in demeanor HEENT: Shows normocephalic, atraumatic. Extraocular movements are intact and symmetrical. Oral cavity: Mucous membranes moist and pink. Dentition is intact. NECK: Shows anterior throat supple without palpable lymphadenopathy noted. Swallow reflex symmetrical. CHEST: Shows normal on inspection. Breath sounds are clear bilaterally, distant but no rales rhonchi or wheezes auscultated. HEART: Shows S1, S2 clear. No murmurs auscultated. ABDOMEN: Soft, nontender, nondistended, obese. No palpable organomegaly is noted. BACK: Shows spine grossly in the midline. Normal-appearing cervical lordotic curvature. There is slightly increased thoracic kyphosis, some minor flattening of the lumbar lordotic curvature. Well-healed surgical scarring is again noted. Lumbar paraspinous muscles show symmetrical on inspection, on palpation shows some moderate tenderness diffusely throughout the upper, middle and lower distribution of the paraspinous muscles, but without specific trigger points, without radiation of pain. The patient has good rotational motion of the lumbar spine, both laterally as well as extension and flexion without significant difficulty. No tenderness over the spinous processes, sacrum or sacroiliac regions. EXTREMITIES: Lower extremities show deep tendon reflexes 2+ in the patellar and tendo calcaneus tendons. Motor exam is 5 on a scale of 5 with right dorsiflexion, extension, quadriceps and hamstring flexion and 5/5 on the left. Peripheral pulses are 1+ posterior tibial. No peripheral edema is noted bilaterally. Lower extremities are warm and dry to touch, equal in color and appearance. Upper extremity show deep tendon reflexes 2+ in the bicep tricep tendons, motor exam is strong with hand crocheter strength rated approximate 4 to scale 5 equal and symmetrical. Patient's hand shows significant tenderness with palpation over the metacarpal phalangeal joints bilaterally. SKIN: Shows warm and dry, good turgor. No edema. No sores, rashes or bruising throughout. Procedure: Procedure: Options were discussed with the patient. Patient chart reviewed as her current medication regimen updated current review of systems updated today as well. We will add new medication of Voltaren gel to use on her hands for the arthritic joint pain, patient was given*side effects aware with the medication. Patient also given refill prescription for oxycodone as she has been very stable on his medication with appropriate K tracks report as well as appropriate urinalyses to date. Patient was given instructions well side effects aware with the oxycodone as well. Patient will follow up in approximate 4 weeks as scheduled. Medication Injected: Med Injected: None Condition at Discharge: Condition at Discharge: Condition at discharge is stable. LEE CA MD Jul 31, 2021 14:51
== END | disposition home or self-care (01) ==
LOC: PNCL 14:09
PROVIDERS: ATTEND Anesthesiology
DX: M54.16 Radiculopathy, lumbar region (principal); M96.1 Postlaminectomy syndrome, not elsewhere classified; M06.9 Rheumatoid arthritis, unspecified; L40.50 Arthropathic psoriasis, unspecified; K21.9 Gastro-esophageal reflux disease without esophagitis; F41.9 Anxiety disorder, unspecified; F32.9 Major depressive disorder, single episode, unspecified; Z79.899 Other long term (current) drug therapy; Z98.890 Other specified postprocedural states; Z88.0 Allergy status to penicillin; Z88.1 Allergy status to other antibiotic agents; Z88.2 Allergy status to sulfonamides; Z91.040 Latex allergy status; Z88.8 Allergy status to other drugs, medicaments and biological substances
CPT/HCPCS: 99212; G0463

== ENCOUNTER → 2021-09-05 | Outpatient (CLI) | payer BC ==
[~2021-09-05] MED LIST changes: -DULO60CA6 PO; +DULO60CA7 PO; +GADOTERATE 7.5 MMOL/15ML VIAL. IVP ONE; -LEFL10TA14 PO; +LEFL10TA19 PO
--- NOTE | 2021-09-05 12:53 | KCIC ---
MRI LUMBAR SPINE WITHOUT AND WITH IV CONTRAST History: Reason: LUMBAR RADICLOPATHY / Spl. Instructions: 3 PRIOR LUMBAR DISCECTOMIES. 16cc Clariscan / History: New pop in lower back 6 days ago. Rt leg numbness and weakness. Technique: Multiplanar, multi sequential MR imaging was performed of the lumbar spine without and wit h intravenous contrast. Comparison: February 22, 2019 Findings: Normal vertebral body height and alignment. No fracture. Degenerative endplate changes most prominent L4-5 and L5-S1. Postoperative changes L5-S1 right hemilaminectomy. Enhancement along the right posterior lateral epid ural space extending to the region of the right S1 nerve root (series 7 image 32). New enhancement and edema within the descending right S1 nerve root (series 7 image 35). Conus terminates at the normal location. No evidence of nerve root clumping. L1-L2: Minimal disc bulge. No canal or neuroforaminal narrowing. L2-L3: Mild facet arthropathy. No canal or neuroforaminal narrowing. L3-L4: Minimal disc bulge. Mild facet arthropathy. No canal or neuroforaminal narrowing. L4-L5: Posterior disc osteophyte complex. Moderate facet arthropathy greatest on the left. No canal narrowing. Mild bilateral neuroforaminal narrowing. L5-S1: Postoperative changes right hemilaminectomy. Right subarticular/foraminal disc protrusion, in creased compared to prior. Abutment of the descending right S1 nerve root increased compared to prior . Mild bilateral neuroforaminal narrowing. No canal narrowing. Moderate facet arthropathy. Impression: 1. Postoperative changes L5 hemilaminectomy with mild enhancement along the posterior lateral epidur al space, may represent fibrosis. Enhancement extends to the region of the right S1 nerve root. 2. Increased L5-S1 right subarticular/foraminal disc protrusion abutting the descending right S1 ner ve root. Correlate for radiculopathy. 3. New right S1 nerve root edema and enhancement, may represent neuritis. Electronically signed by: Braydon Ceja DO (09/05/2021 12:51 PM) [facility]
== END | disposition home or self-care (01) ==
LOC: KCIC MRI 10:45
PROVIDERS: ATTEND Anesthesiology
DX: M54.16 Radiculopathy, lumbar region (principal); K21.9 Gastro-esophageal reflux disease without esophagitis; M19.90 Unspecified osteoarthritis, unspecified site; F41.9 Anxiety disorder, unspecified; F32.9 Major depressive disorder, single episode, unspecified; Z79.899 Other long term (current) drug therapy; Z98.890 Other specified postprocedural states; Z88.0 Allergy status to penicillin; Z88.2 Allergy status to sulfonamides; Z88.1 Allergy status to other antibiotic agents; Z91.040 Latex allergy status; Z88.8 Allergy status to other drugs, medicaments and biological substances
CPT/HCPCS: 72158; 82565; A9575

== ENCOUNTER → 2021-10-09 | Outpatient (CLI) | payer BC ==
[~2021-10-09] MED LIST changes: +CYCL10TA19 PO; -CYCL10TA2 PO; -GADOTERATE 7.5 MMOL/15ML VIAL. IVP ONE; +HYDR25CA PO; +LEFL10TA13 PO; +LORA10TA65 PO; +METO25TA4 PO; +PARO20TA3 PO
--- NOTE | 2021-10-09 14:46 | EKG ---
[facility] [address] [place] [address] Test Date: 2021-10-09 Test Time: 14:37:29 Pat Name: AKOSUA GRAHAM Department: Room: Gender: F Ultrasound Coordinator: SHER : 1980 Requested By: BARTOLO HAWKINS Order Number: [id number] Reading MD: Ford Chamorro MD Measurements Intervals [place] Rate: 92 P: 265 SD: 162 QRS: -3 QRSD: 84 T: -3 QT: 350 QTc: 438 Interpretive Statements SINUS RHYTHM LAE NON-SPECIFIC ST/T CHANGES Electronically Signed On 10-10-2021 16:32:07 [employer]AD NETWORK ARCHITECT by Ford Chamorro MD
[2021-10-09 15:11] LABS: HEMATOCRIT 40.9 % (36.0-47.0); HEMOGLOBIN 14.6 g/dL (12.0-15.5); RED BLOOD COUNT 4.51 x10^6/uL (3.50-5.40); WHITE BLOOD COUNT 7.8 x10^3/uL (4.0-11.0)
[2021-10-09 15:18] LABS: PROTHROMBIN TIME PATIENT 11.8 SEC (11.7-14.0)
[2021-10-09 15:19] LABS: ALBUMIN 4.1 g/dL (3.4-5.0); ALBUMIN/GLOBULIN RATIO 1.1 (1.0-1.7); CALCIUM 8.8 mg/dL (8.5-10.1); CREATININE 1.2 mg/dL (0.6-1.0); GFR 49.3; TOTAL BILIRUBIN 1.1 mg/dL (0.2-1.0)
[2021-10-09 15:24] LABS: POTASSIUM 2.6 mmol/L (3.5-5.1)
--- NOTE | 2021-10-09 15:25 | NUR ---
Called Dr Ashley's office to notify of critical potassium. Dr Ashley is currently in surgery so the call was transferred to Estelita MCINTYRE voicemail. Left a message for call back.
--- NOTE | 2021-10-09 15:41 | NUR ---
Spoke with Jazmine Block regarding low potassium. She requested results to be faxed to the office and she would get in touch with patient's primary doctor.
== END ==
LOC: SURGPAT 13:51
PROVIDERS: ATTEND Neurological Surgery
DX: Z01.818 Encounter for other preprocedural examination (principal); M51.16 Intervertebral disc disorders with radiculopathy, lumbar region
CPT/HCPCS: 36415; 80053; 85027; 85610; 85730; 87641; 93005

== ENCOUNTER 2021-10-14 06:06 | Inpatient (IN) | payer BC ==
[2021-10-09 14:18] VITALS: BP 140/81
[2021-10-09 14:54] VITALS: BP 140/81
--- NOTE | 2021-10-11 13:30 | PREOP HP ---
DATE OF SERVICE: 10/14/2021 HISTORY OF PRESENT ILLNESS: The patient is a pleasant 41-year-old who is having difficulty with low back and right leg pain. She has undergone 3 lumbar surgeries in the past, most recently in 2019 for recurrent disk herniation at L5-S1. She has problems with chronic significant back and right leg pain. She says that every few months, she sees Dr. Peralta in the pain clinic for steroid injections. She said her most recent injection was 2 or 3 months ago, which helped her for about 3 days. Then, she had worsening overall pain starting on 08/30/2021. She said she twisted when getting up from the sofa and developed severe shooting pain down her right leg. She tried doing physical therapy exercises at home, which she said made her pain worse. She spoke with Dr. Peralta, who related that she had already had the maximum number of epidural steroid injections for the year. Walking and standing or sitting increase her pain. She says the pain is constant. Lying in bed with pillows underneath her legs can help. She has been taking Percocet, Flexeril and meloxicam. She did take oral steroids as well. She has not gotten lasting relief with this. CURRENT MEDICATIONS: Pantoprazole, Zyrtec, Humira, triamterene and hydrochlorothiazide, meloxicam, Flexeril, Paxil, Percocet. PAST MEDICAL HISTORY: Anemia, arthritis, headaches, kidney stones, psychiatric care, fibromyalgia. PAST SURGICAL HISTORY: Lumbar microdiskectomy L5-S1 right in 2014, lumbar surgery in 2006, cholecystectomy in 2013, exploratory lap with ovarian cyst in 2013, reoperation microdiskectomy L5-S1 right in 03/2019. FAMILY HISTORY: Aneurysm, cancer, diabetes, heart disease, hypertension, migraine headaches, spine problems. SOCIAL HISTORY: . Drinks alcohol 1-2 times per week. Does not smoke. ALLERGIES: SULFA, PENICILLIN, LATEX. REVIEW OF SYSTEMS: A 12-point review of systems was performed and is noncontributory except that mentioned above. PHYSICAL EXAMINATION: GENERAL: Alert, pleasant, in no acute distress. HEENT: Head is normocephalic, atraumatic. SKIN: Warm and dry. Well-healed lumbar incision. MUSCULOSKELETAL: Lumbar paraspinal muscle bulk is normal, restricted range of motion of the lumbar spine, moderate tenderness of the lower lumbar spine with palpation, normal range of motion of the lower extremities bilaterally. EXTREMITIES: No clubbing, cyanosis or edema. NEUROLOGIC: Alert and oriented x 3. Strength is 5/5 in the lower extremities bilaterally. Sensory was intact to light touch in the lower extremities bilaterally except for diffuse decrease in light touch involving her right foot, reflexes were 3+ and symmetric in the lower extremities bilaterally except for an absent right ankle jerk, markedly positive straight leg raising on the right at 20 degrees with back and right leg pain relieved by Lasegue's maneuver, negative straight leg raising on the left, antalgic gait favoring her right leg. IMAGING: I reviewed a lumbar MRI scan from 09/05/2021. On that study, there are postoperative changes at L5 and S1 with laminectomies. There was scarring along the right posterolateral epidural space extending to the region of the S1 nerve on the right. There is also new enhancement and edema within the descending right S1 nerve root. There is a right subarticular foraminal disk protrusion, which is significantly increased compared to prior imaging. It does abut the descending right S1 nerve root. ASSESSMENT AND PLAN: She has a new disk herniation at L5-S1 on the right with compression of the right S1 nerve root. There is edema and enhancement within the right S1 nerve root. She should undergo lumbar microsurgery to remove the herniated disk fragment and decompress the root. This would be her fourth lumbar surgery and her third surgery at this specific location. My recommendation is that in addition to the diskectomy and decompression of the nerve, she should undergo an instrumented lumbar fusion at L5-S1. I spoke with her about the surgery, the rationale as well as the technique. I spoke with her about the use of interbody fusion cages. I spoke with her about posterolateral fusion. She understands the placement of hardware. We did discuss the risk of surgery and the expected postoperative course. She understands and would like to proceed. JOSH DR: Angela TID: [id number]
[~2021-10-14] VITALS: Ht 170.2 cm; Wt 84.2 kg
[2021-10-14] VITALS (9 sets, daily range): BP systolic 105–145; BP diastolic 73–99
[~2021-10-14 06:06] MED LIST changes: +DEXAMETHASONE SOD PHOS 4 MG/ML VIAL ONE; +GLYCOPYRROLATE 1 MG/5 ML VIAL. ONE; -HYDR25CA PO; +LIDOCAINE 2% PF 5 ML VIAL. ONE; +MIDAZOLAM HCL/PF 2 MG/2 ML VIAL. ONE; +MORPHINE SULFATE 2 MG/ML INJ. IVP PRN; +NEOSTIGMINE METHYLSULFATE 5 MG/5 ML SYRINGE. ONE; +ONDANSETRON PF 4 MG/2 ML VIAL. ONE; +PHENYLEPHRINE 10 MG/ML VIAL. ONE; +PROCHLORPERAZINE 10 MG/2 ML VIAL. IVP PRN; +PROPOFOL 10 MG/ML (20ML) VIAL. IV ONE; +PROPOFOL 50 ML IV ONE; +REMIFENTANIL 1 MG VIAL. IV ONE; +ROCURONIUM 50 MG/5 ML VIAL. ONE; +SEVOFLURANE 61 TO 120 MINUTES. IH ONE; +ceFAZolin SODIUM 1 GM in IV NORMAL SALINE 1000ML BAG 1,000 ML IRR ONE; +fentaNYL PF VIAL 100 MCG/2 ML VIAL IVP PRN; +fentaNYL PF VIAL 100 MCG/2 ML VIAL ONE
[2021-10-14] MEDS ORDERED: SCOPOLAMINE 1.5MG PATCH. TD ONE (06:30)
[2021-10-14] MEDS ORDERED: BUPIVACAINE-EPI 0.5% 30 ML VIAL KIT. ONE (06:38)
[2021-10-14] MEDS ORDERED: THROMBIN TOPICAL 20,000 UNIT SPRAY.SYRN KIT TP ONE (06:38)
[2021-10-14] MEDS ORDERED: KETOROLAC 60 MG/2 ML VIAL. ONE (06:38)
[2021-10-14] MEDS ORDERED: GELATIN SPONGE SIZE 100. ONE (06:38)
[2021-10-14] MEDS: IV RINGERS,LACTATED 1000ML 1,000 ML IV SCH ×2 (06:52→14:45)
[2021-10-14 07:16] LABS: CALCIUM 8.5 mg/dL (8.5-10.1); CREATININE 0.9 mg/dL (0.6-1.0); GFR 68.7; POTASSIUM 3.4 mmol/L (3.5-5.1)
[2021-10-14] MEDS ORDERED: KETAMINE HCL IN NACL, ISO-OSM 50 MG/5 ML SYRINGE ONE (07:25)
[2021-10-14 07:33] LABS: BASO # 0.1 x10^3/uL (0.0-0.2); BASO % 1 % (0-3); EOS # 0.1 x10^3/uL (0.0-0.7); EOS % 1 % (0-3); HEMATOCRIT 38.2 % (36.0-47.0); HEMOGLOBIN 13.5 g/dL (12.0-15.5); LYMPH # 4.6 x10^3/uL (1.0-4.8); LYMPH % 52 % (24-48); MEAN CORPUSCULAR HEMOGLOBIN 32 pg (25-35); MEAN CORPUSCULAR HGB CONC 35 g/dL (31-37); MEAN CORPUSCULAR VOLUME 92 fL (79-100); MONO # 0.8 x10^3/uL (0.0-1.1); MONO % 10 % (0-9); NEUT # 3.1 x10^3/uL (1.8-7.7); NEUT % 36 % (31-73); PLATELET COUNT 263 x10^3/uL (140-400); RED BLOOD COUNT 4.16 x10^6/uL (3.50-5.40); RED CELL DISTRIBUTION WIDTH 14.4 % (11.5-14.5); WHITE BLOOD COUNT 8.7 x10^3/uL (4.0-11.0)
[2021-10-14] MEDS ORDERED: PROPOFOL 50 ML IV ONE (08:16)
[2021-10-14] MEDS ORDERED: HYDROCORTISONE SOD SUCC/PF 100 MG/2 ML VIAL. ONE (08:41)
--- NOTE | 2021-10-14 09:18 | RAD ---
EXAM: Lumbar spine CT without contrast. HISTORY: Radiculopathy. TECHNIQUE: Computed tomographic images of the lumbar spine were obtained without contrast. Multiplana r reformatting was performed. *One or more of the following individualized dose reduction techniques were utilized for this examina tion: 1. Automated exposure control. 2. Adjustment of the mA and/or kV according to patient size. 3. Use of iterative reconstruction technique. COMPARISON: MRI dated 09/05/2021. FINDINGS: There is no significant listhesis. There is minimal levoscoliosis centered at L4-L5. There is degenerative endplate remodeling with disc space narrowing and osteophytosis primarily at L4-L5 an d L5-S1. There is vacuum phenomenon within the disc space at L5-S1, and to a lesser extent, L4-L5. Th ere is no suspicious osseous lesion. There is hepatic steatosis and hepatomegaly, partially included on the [id number]. There is a 1 mL nonobstructing right renal stone. There is distal colonic diver ticulosis. There is partial ankylosis of the left sacroiliac joint. There is a 1.0 cm sclerotic lesio n within the left iliac bone, likely due to a bone island. At L1-L2, there is a small right paracentral disc protrusion superimposed on endplate remodeling. The re is mild bilateral facet arthropathy. There is no stenosis. At L2-L3, there is a disc bulge and endplate remodeling. There is mild left greater than right facet arthropathy. There is no stenosis. At L3-L4, there is a disc bulge and endplate remodeling. There is mild bilateral facet arthropathy. T here is no stenosis. At L4-L5, there is a disc bulge and endplate remodeling. There is mild bilateral facet arthropathy. T here are left hemilaminectomy changes. There is suspected scar/granulation tissue extending inferiorl y along the posterior aspect of L5. This does not contribute to significant central canal stenosis. T here is mild left foraminal stenosis. At L5-S1, there is a right paracentral to right lateral recess disc protrusion and osteophyte complex superimposed on a disc bulge and endplate osteophytosis. There are right hemilaminectomy changes. Th ere is moderate right and mild left foraminal stenosis with suspected abutment of the exiting right g reater than left L5 nerve roots. There is scar/granulation tissue resulting in effacement of the righ t lateral recess and suspected abutment of the traversing right S1 nerve root. IMPRESSION: 1. L5-S1: Right paracentral to right lateral recess disc protrusion and osteophyte complex superimpos ed on a disc bulge and endplate osteophytosis, contributing to moderate right and mild left foraminal stenosis and abutment of the exiting right greater than left L5 nerve roots. There are right hemilam inectomy changes at this level, with suspected scar/granulation tissue resulting in effacement of the right lateral recess and abutment of the traversing right S1 nerve root. 2. L4-L5: Left hemilaminectomy changes with suspected scar/granulation tissue extending inferiorly al ingrid the posterior aspect of L5, without significant central canal stenosis. There is mild left forami nal stenosis at this level. 3. Degenerative change throughout the remainder the lumbar spine, described in detail above. No addit ional stenosis is seen. 4. Incidental hepatomegaly and hepatic steatosis, right nephrolithiasis and colonic diverticulosis. Electronically signed by: Bhavana Kelly MD (10/14/2021 9:16 AM) [id number]
[2021-10-14] MEDS ORDERED: REMIFENTANIL 1 MG VIAL. IV ONE (09:37)
[2021-10-14] MEDS ORDERED: ceFAZolin SODIUM IV Push 1 GM VIAL. IVP ONE ×2 (10:26→10:30)
[2021-10-14] MEDS ORDERED: fentaNYL PF VIAL 100 MCG/2 ML VIAL ONE (11:47)
[2021-10-14] MEDS ORDERED: PROPOFOL 100 ML IV ONE (12:34)
[2021-10-14] MEDS ORDERED: ONDANSETRON PF 4 MG/2 ML VIAL. IVP PRN (14:00)
[2021-10-14] MEDS ORDERED: MAGNESIUM HYDROXIDE 2,400 MG/30 ML ORAL.SUSP. PO PRN (14:00)
[2021-10-14] MEDS ORDERED: NALOXONE 0.4 MG/ML VIAL. IV PRN (14:00)
[2021-10-14] MEDS ORDERED: diphenhydrAMINE HCL 25 MG CAPSULE PO PRN (14:00)
[2021-10-14] MEDS ORDERED: 0.9 % SODIUM CHLORIDE 10 ML DISP.SYRIN. IV PRN (14:00)
[2021-10-14] MEDS ORDERED: MAG HYDROX/ALUMINUM HYD/SIMETH 30 ML ORAL.SUSP PO PRN (14:00)
[2021-10-14] MEDS ORDERED: ACETAMINOPHEN 325 MG TABLET. PO PRN (14:00)
[2021-10-14] MEDS ORDERED: CALCIUM CARBONATE 500 MG TAB.CHEW PO PRN (14:00)
[2021-10-14] MEDS ORDERED: oxyCODONE/APAP 7.5/325 1 TAB TABLET PO PRN (14:00)
[2021-10-14] MEDS: fentaNYL PF VIAL 100 MCG/2 ML VIAL IVP PRN ×3 (14:44→18:19)
[2021-10-14] MEDS ORDERED: HYDROmorphone 2 MG/ML VIAL ONE (15:23)
[2021-10-14] MEDS: HYDROmorphone 2 MG/ML VIAL IVP PRN ×2 (15:25→15:51)
[2021-10-14] MEDS ORDERED: NEOMY/BACITR/POLYMYXIN OINT PACKET. TP ONE (15:40)
--- NOTE | 2021-10-14 16:30 | NUR ---
received from recovery. she is alert and oriented x4. at bedside. she is able to ambulate to bathroom and she voided . returned to bed. dressing to back is clean and dry. admission history completed. states she has pain in her right leg and incisional area.
[2021-10-14] MEDS: ceFAZolin SODIUM IV Push 1 GM VIAL. IVP SCH ×2 (17:00→22:15)
[2021-10-14] MEDS ORDERED: HYDR25CA PO (17:22)
[2021-10-14] MEDS ORDERED: hydrOXYzine 25 MG TABLET PO PRN (17:45)
[2021-10-14] MEDS ORDERED: ALPRAZolam 0.5 MG TABLET PO ONE (19:15)
[2021-10-14] MEDS: POTASSIUM CL 20MEQ D5-0.45NACL 1,000 ML IV SCH (19:41)
[2021-10-14] MEDS: CYCLOBENZAPRINE 10 MG TABLET. PO SCH (19:41)
[2021-10-14] MEDS: DOCUSATE SODIUM 100 MG CAPSULE. PO SCH (19:42)
[2021-10-14] MEDS: oxyCODONE/APAP 7.5/325 1 TAB TABLET PO PRN (19:45)
[2021-10-15] MEDS: fentaNYL PF VIAL 100 MCG/2 ML VIAL IVP PRN ×2 (02:34→08:33)
[2021-10-15 02:50] VITALS: BP 110/77
[2021-10-15] MEDS: POTASSIUM CL 20MEQ D5-0.45NACL 1,000 ML IV SCH ×2 (03:20→14:22)
[2021-10-15] MEDS: ceFAZolin SODIUM IV Push 1 GM VIAL. IVP SCH (05:26)
[2021-10-15] MEDS: oxyCODONE/APAP 7.5/325 1 TAB TABLET PO PRN ×4 (07:14→20:52)
[2021-10-15 07:15] VITALS: BP 122/79
[2021-10-15] MEDS: PARoxetine 20 MG TABLET PO SCH (08:27)
[2021-10-15] MEDS: PANTOPRAZOLE 40 MG TABLET.DR. PO SCH (08:27)
[2021-10-15] MEDS: CETIRIZINE HCL 10 MG TABLET. PO SCH (08:28)
[2021-10-15] MEDS: DOCUSATE SODIUM 100 MG CAPSULE. PO SCH ×2 (08:28→20:48)
[2021-10-15] MEDS: CYCLOBENZAPRINE 10 MG TABLET. PO SCH ×3 (08:28→20:48)
[2021-10-15] MEDS: METOPROLOL TART IMMED RELEASE 25 MG TABLET. PO SCH (08:28)
[2021-10-15] MEDS: LEFLUNOMIDE 10 MG TABLET. PO SCH (08:57)
[2021-10-15 11:15] VITALS: BP 148/84
--- NOTE | 2021-10-15 13:19 | PDOC ---
PROGRESS NOTES Date of Service DATE: 10/15/21 TIME: 13:17 Subjective Subjective POD #1 S/P decompression L5-S1 right with posterior instrumentation and fusion sore, some incisional and right leg pain has been up ambulating with PT Eating lunch in chair currently Objective Objective Vital Signs Date Time Temp Pulse Resp B/P (MAP) Pulse Ox O2 Delivery O2 Flow Rate FiO2 10/15/21 12:47 96 Room Air 10/15/21 11:15 98.5 92 20 148/84 (105) 98.5 10/14/21 20:00 2.0 Intake and Output 10/15/21 06:59 Intake Total 1550 ml Output Total 52 ml Balance 1498 ml IV Total 1550 ml Output Urine Total 2 ml Estimated Blood Loss 50 ml # Voids 2 Physical Exam General: Alert, Oriented X3, Cooperative Neuro: Sensation intact, Other (normal strength in LE) Skin: Other (dressing dry and intact, flat) Plan Plan of Care encouraged increased activity as tolerated PT brace when up D/W RN Comment Review of Relevant I have reviewed the following items andreia (where applicable) has been applied. Labs Laboratory Tests Test 10/14/21 06:25 10/14/21 06:45 Bedside Urine HCG, Qualitative Hcg negative (Negative) White Blood Count 8.7 x10^3/uL (4.0-11.0) Red Blood Count 4.16 x10^6/uL (3.50-5.40) Hemoglobin 13.5 g/dL (12.0-15.5) Hematocrit 38.2 % (36.0-47.0) Mean Corpuscular Volume 92 fL (79-100) Mean Corpuscular Hemoglobin 32 pg (25-35) Mean Corpuscular Hemoglobin Concent 35 g/dL (31-37) Red Cell Distribution Width 14.4 % (11.5-14.5) Platelet Count 263 x10^3/uL (140-400) Neutrophils (%) (Auto) 36 % (31-73) Lymphocytes (%) (Auto) 52 % (24-48) Monocytes (%) (Auto) 10 % (0-9) Eosinophils (%) (Auto) 1 % (0-3) Basophils (%) (Auto) 1 % (0-3) Neutrophils # (Auto) 3.1 x10^3/uL (1.8-7.7) Lymphocytes # (Auto) 4.6 x10^3/uL (1.0-4.8) Monocytes # (Auto) 0.8 x10^3/uL (0.0-1.1) Eosinophils # (Auto) 0.1 x10^3/uL (0.0-0.7) Basophils # (Auto) 0.1 x10^3/uL (0.0-0.2) Sodium Level 139 mmol/L (136-145) Potassium Level 3.4 mmol/L (3.5-5.1) Chloride Level 106 mmol/L (98-107) Carbon Dioxide Level 26 mmol/L (21-32) Anion Gap 7 (6-14) Blood Urea Nitrogen 9 mg/dL (7-20) Creatinine 0.9 mg/dL (0.6-1.0) Estimated GFR (Cockcroft-Gault) 68.7 Glucose Level 103 mg/dL (70-99) Calcium Level 8.5 mg/dL (8.5-10.1) Medications Current Medications Fentanyl Citrate (Fentanyl 2ml Vial) 25 mcg PRN Q5MIN PRN IVP MILD PAIN 1-3; Start 10/14/21 at 06:00; Stop 10/15/21 at 05:59; Status DC Fentanyl Citrate (Fentanyl 2ml Vial) 50 mcg PRN Q5MIN PRN IVP MODERATE PAIN 4-6 Last administered on 10/14/21at 15:13; Start 10/14/21 at 06:00; Stop 10/15/21 at 06:00; Status DC Morphine Sulfate (Morphine Sulfate) 1 mg PRN Q10MIN PRN IVP SEVERE PAIN 7-10; Start 10/14/21 at 06:00; Stop 10/15/21 at 06:00; Status DC Ringer's Solution 1,000 ml @ 30 mls/hr Q24H IV Last administered on 10/14/21at 14:45; Start 10/14/21 at 06:00; Stop 10/14/21 at 17:59; Status DC Hydromorphone HCl (Dilaudid) 0.5 mg PRN Q10MIN PRN IVP SEVERE PAIN 7-10, 2nd CHOICE Last administered on 10/14/21at 15:51; Start 10/14/21 at 06:00; Stop 10/15/21 at 06:00; Status DC Prochlorperazine Edisylate (Compazine) 5 mg PACU PRN PRN IVP NAUSEA, MRX1; Start 10/14/21 at 06:00; Stop 10/15/21 at 06:00; Status DC Cefazolin Sodium/ Dextrose 50 ml @ 100 mls/hr 1X PREOP PRN IV PRIOR TO PROCEDURE Last administered on 10/14/21at 08:59; Start 10/14/21 at 06:00; Stop 10/14/21 at 18:00; Status DC Cefazolin Sodium 1 gm/Sodium Chloride 1,000 ml @ 1,000 mls/hr 1X ONCE IRR L ast administered on 10/14/21at 10:04; Start 10/14/21 at 06:00; Stop 10/14/21 at 06:59; Status DC Scopolamine (Transderm-Scop) 1 patch 1X ONCE TD Last administered on 10/14/21at 06:52; Start 10/14/21 at 06:30; Stop 10/14/21 at 06:32; Status DC Gelatin (Gelfoam Size 100) 1 each STK-MED ONCE .ROUTE Last administered on 10/14/21at 10:04; Start 10/14/21 at 06:38; Stop 10/14/21 at 06:38; Status DC Bupivacaine HCl/ Epinephrine Bitart (Sensorcain-Epi 0.5% Kit) 30 ml STK-MED ONCE .ROUTE Last administered on 10/14/21at 10:04; Start 10/14/21 at 06:38; Stop 10/14/21 at 06:39; Status DC Ketorolac Tromethamine (Toradol Im) 60 mg STK-MED ONCE .ROUTE Last administered on 10/14/21at 10:04; Start 10/14/21 at 06:38; Stop 10/14/21 at 06:39; Status DC Thrombin 20,000 unit STK-MED ONCE TP Last administered on 10/14/21at 10:04; Start 10/14/21 at 06:38; Stop 10/14/21 at 06:39; Status DC Propofol (Diprivan) 200 mg STK-MED ONCE IV ; Start 10/14/21 at 04:52; Stop 10/14/21 at 06:53; Status DC Lidocaine HCl (Lidocaine Pf 2% Vial) 5 ml STK-MED ONCE .ROUTE ; Start 10/14/21 at 04:52; Stop 10/14/21 at 06:53; Status DC Ondansetron HCl (Zofran) 4 mg STK-MED ONCE .ROUTE ; Start 10/14/21 at 04:52; Stop 10/14/21 at 06:53; Status DC Phenylephrine HCl (Cali-Synephrine Inj) 10 mg STK-MED ONCE .ROUTE ; Start 10/14/21 at 04:52; Stop 10/14/21 at 06:53; Status DC Propofol 50 ml @ As Directed STK-MED ONCE IV ; Start 10/14/21 at 04:52; Stop 10/14/21 at 06:53; Status DC Dexamethasone Sodium Phosphate (Decadron) 4 mg STK-MED ONCE .ROUTE ; Start 10/14/21 at 04:52; Stop 10/14/21 at 06:53; Status DC Sevoflurane (Ultane) 60 ml STK-MED ONCE IH ; Start 10/14/21 at 04:52; Stop 10/14/21 at 06:53; Status DC Fentanyl Citrate (Fentanyl 2ml Vial) 100 mcg STK-MED ONCE .ROUTE ; Start 10/14/21 at 04:53; Stop 10/14/21 at 06:53; Status DC Midazolam HCl (Versed) 2 mg STK-MED ONCE .ROUTE ; Start 10/14/21 at 04:53; Stop 10/14/21 at 06:54; Status DC Remifentanil HCl (Ultiva) 1 mg STK-MED ONCE IV ; Start 10/14/21 at 04:53; Stop 10/14/21 at 06:54; Status DC Rocuronium [place]o (Zemuron) 50 mg STK-MED ONCE .ROUTE ; Start 10/14/21 at 04:55; Stop 10/14/21 at 06:55; Status DC Glycopyrrolate (Robinul) 1 mg STK-MED ONCE .ROUTE ; Start 10/14/21 at 04:55; Stop 10/14/21 at 06:55; Status DC Neostigmine [place] (Neostigmine Methylsulfate) 5 mg STK-MED ONCE .ROUTE ; Start 10/14/21 at 04:55; Stop 10/14/21 at 06:55; Status DC Hydrocortisone Sodium Succinate (Solu-CORTEF) 100 mg STK-MED ONCE .ROUTE ; Start 10/14/21 at 08:41; Stop 10/14/21 at 08:41; Status DC Ketamine HCl (Ketamine) 50 mg STK-MED ONCE .ROUTE ; Start 10/14/21 at 07:25; Stop 10/14/21 at 09:25; Status DC Propofol 50 ml @ As Directed STK-MED ONCE IV ; Start 10/14/21 at 08:16; Stop 10/14/21 at 10:16; Status DC Remifentanil HCl (Ultiva) 1 mg STK-MED ONCE IV ; Start 10/14/21 at 09:37; Stop 10/14/21 at 11:38; Status DC Cefazolin Sodium (Ancef) 1 gm STK-MED ONCE IVP ; Start 10/14/21 at 10:26; Stop 10/14/21 at 12:26; Status DC Propofol 100 ml @ As Directed STK-MED ONCE IV ; Start 10/14/21 at 12:34; Stop 10/14/21 at 12:35; Status DC Fentanyl Citrate (Fentanyl 2ml Vial) 100 mcg STK-MED ONCE .ROUTE ; Start 10/14/21 at 11:47; Stop 10/14/21 at 13:47; Status DC Cyclobenzaprine HCl (Flexeril) 10 mg TID PO Last administered on 10/15/21at 08:28; Start 10/14/21 at 21:00 Leflunomide (Arava) 20 mg DAILY PO Last administered on 10/15/21at 08:57; Sta rt 10/15/21 at 09:00 Metoprolol Tartrate (Lopressor) 25 mg DAILY PO Last administered on 10/15/21at 08:28; Start 10/15/21 at 09:00 Pantoprazole Sodium (Protonix) 40 mg DAILYAC PO Last administered on 10/15/21at 08:27; Start 10/15/21 at 07:30 Paroxetine HCl (Paxil) 20 mg DAILY PO Last administered on 10/15/21at 08:27; Start 10/15/21 at 09:00 Non-Formulary Medication (Adalimumab (Humira)) 1 syr Q2WKS SQ ; Start 10/28/21 at 09:00; Status UNV Cetirizine HCl (ZyrTEC) 10 mg DAILY PO Last administered on 10/15/21at 08:28; Start 10/15/21 at 09:00 Fentanyl Citrate (Fentanyl 2ml Vial) 50 mcg PRN Q2HR PRN IVP PAIN Last administered on 10/15/21at 08:33; Start 10/14/21 at 14:00 Acetaminophen (Tylenol) 650 mg PRN Q6HRS PRN PO MILD PAIN / TEMP > 100.3'F; Start 10/14/21 at 14:00 Al Hydroxide/Mg Hydroxide (Mylanta Plus Xs) 30 ml PRN Q3HRS PRN PO HEARTBURN / GAS; Start 10/14/21 at 14:00 Calcium Carbonate/ Glycine (Tums) 500 mg PRN Q3HRS PRN PO INDIGESTION; Start 10/14/21 at 14:00 Diphenhydramine HCl (Benadryl) 25 mg PRN Q6HRS PRN PO ITCHING; Start 10/14/21 at 14:00 Naloxone HCl (Narcan) 0.1 mg PRN Q2MIN PRN IV SEE COMMENTS; Start 10/14/21 at 14:00 Sodium Chloride (Normal Saline Flush) 3 ml QSHIFT PRN IV AFTER MEDS AND BLOOD DRAWS; Start 10/14/21 at 14:00 Potassium Chloride/Dextrose/ Sod Cl 1,000 ml @ 75 mls/hr [id number] IV Last administered on 10/14/21at 19:41; Start 10/14/21 at 14:00 Docusate Sodium (Colace) 100 mg BID PO Last administered on 10/15/21at 08:28; Start 10/14/21 at 21:00 Magnesium Hydroxide (Milk Of Magnesia) 2,400 mg PRN Q12HR PRN PO CONSTIPATION; Start 10/14/21 at 14:00 Ondansetron HCl (Zofran) 4 mg PRN Q6HRS PRN IVP NAUESA, 1ST CHOICE; Start 10/14/21 at 14:00 Cefazolin Sodium (Ancef) 1 gm Q8HRS IVP Last administered on 10/15/21at 05:26; Start 10/14/21 at 17:00; Stop 10/15/21 at 06:01; Status DC Oxycodone/ Acetaminophen (Percocet 7.5/ 325) 1 tab PRN Q4HRS PRN PO MODERATE PAIN; Start 10/14/21 at 14:00 Oxycodone/ Acetaminophen (Percocet 7.5/ 325) 2 tab PRN Q4HRS PRN PO SEVERE PAIN Last administered on 10/15/21at 12:17; Start 10/14/21 at 14:00 Hydromorphone HCl (Dilaudid) 2 mg STK-MED ONCE .ROUTE ; Start 10/14/21 at 15:23; Stop 10/14/21 at 15:23; Status DC Neomycin/ Polymyxin/ Bacitracin (Triple Antibiotic Ointment) 1 pkt STK-MED ONCE TP ; Start 10/14/21 at 15:40; Stop 10/14/21 at 15:40; Status DC Hydroxyzine HCl (Atarax) 25 mg PRN QID PRN PO ITCHING Last administered on 10/14/21at 18:20; Start 10/14/21 at 17:45 Alprazolam (Xanax) 0.5 mg 1X ONCE PO Last administered on 10/14/21at 19:41; Start 10/14/21 at 19:15; Stop 10/14/21 at 19:16; Status DC Cefazolin Sodium (Ancef) 2 gm STK-MED ONCE IVP ; Start 10/14/21 at 10:30; Stop 10/15/21 at 08:59; Status DC Active Scripts Active Percocet 7.5-325 Mg Tablet (Oxycodone/Acetaminophen) 1 Each Tablet 1 Tab PO PRN BID PRN MDD 2 Tablet(s) 30 Days Reported Vistaril (Hydroxyzine Pamoate) 25 Mg Capsule 25 Mg PO QID Claritin (Loratadine) 10 Mg Tab.rapdis 10 Mg PO DAILY Metoprolol Tartrate 25 Mg Tablet 25 Mg PO DAILY Leflunomide 20 Mg Tablet 20 Mg PO DAILY Paroxetine Hcl 20 Mg Tablet 20 Mg PO DAILY Cyclobenzaprine Hcl 10 Mg Tablet 1 Tab PO TID Humira (Adalimumab) 40 Mg/0.8 Ml Pen.ij.kit 1 Syr SQ Q2WKS Protonix (Pantoprazole Sodium) 40 Mg Tablet.dr 40 Mg PO DAILYAC Vitals/I & O Vital Sign - Last 24 Hours 10/14/21 10/14/21 10/14/21 10/14/21 14:02 14:02 14:17 14:32 Temp 97.3 97.3 Pulse 134 128 119 Resp 22 B/P (MAP) 112/52 120/75 108/68 Pulse Ox 100 99 93 O2 Delivery Mask Simple Mask Simple Mask Simple Mask O2 Flow Rate 10 10 10 10 10/14/21 10/14/21 10/14/21 10/14/21 14:44 14:48 15:03 15:13 Pulse 121 119 Resp 20 B/P (MAP) 121/74 109/71 Pulse Ox 99 91 92 96 O2 Delivery Room Air Room Air Room Air Room Air 10/14/21 10/14/21 10/14/21 10/14/21 15:18 15:25 15:33 15:51 Pulse 121 120 Resp 20 B/P (MAP) 129/79 111/64 Pulse Ox 92 92 93 96 O2 Delivery Room Air Room Air Room Air Room Air 10/14/21 10/14/21 10/14/21 10/14/21 16:15 16:30 16:35 16:45 Temp 98.6 98.6 Pulse 124 Resp 20 B/P (MAP) 142/99 (113) 139/90 (106) 142/89 (106) Pulse Ox 92 O2 Delivery Room Air Nasal Cannula O2 Flow Rate 2.0 10/14/21 10/14/21 10/14/21 10/14/21 17:00 17:30 18:30 19:00 Temp 98.2 97.6 98.0 98.2 97.6 98.0 Pulse 110 106 104 Resp 20 18 16 B/P (MAP) 137/87 (104) 144/90 (108) 121/87 (98) Pulse Ox 93 95 95 O2 Delivery Room Air Room Air Nasal Cannula O2 Flow Rate 2.0 10/14/21 10/14/21 10/14/21 10/15/21 19:00 20:00 22:32 02:50 Temp 97.7 97.5 97.7 97.7 97.5 97.7 Pulse 104 90 80 Resp 24 18 18 B/P (MAP) 145/96 (112) 105/73 (84) 110/77 (88) Pulse Ox 93 98 99 O2 Delivery Room Air Nasal Cannula Room Air Room Air O2 Flow Rate 2.0 10/15/21 10/15/21 10/15/21 10/15/21 07:14 07:15 07:44 07:54 Temp 98.6 98.6 Pulse 104 Resp 20 B/P (MAP) 122/79 (93) Pulse Ox 99 96 96 O2 Delivery Room Air Room Air Room Air Room Air 10/15/21 10/15/21 10/15/21 10/15/21 08:28 08:33 09:03 11:15 Temp 98.5 98.5 Pulse 104 92 Resp 20 B/P (MAP) 122/79 148/84 (105) Pulse Ox 96 96 96 O2 Delivery Room Air Room Air Room Air 10/15/21 10/15/21 12:17 12:47 Pulse Ox 96 96 O2 Delivery Room Air Room Air Intake and Output 10/14/21 10/14/21 10/15/21 14:59 22:59 06:59 Intake Total 1050 ml 500 ml Output Total 50 ml 2 ml Balance 1000 ml 498 ml Justifications for Admission Other Justification BARTOLO HAWKINS MD Oct 15, 2021 13:19
[2021-10-15 15:09] VITALS: BP 98/54
[2021-10-15 19:00] VITALS: BP 92/61
[2021-10-15 23:00] VITALS: BP 103/68
[2021-10-16] MEDS: fentaNYL PF VIAL 100 MCG/2 ML VIAL IVP PRN (00:02)
--- NOTE | 2021-10-16 00:31 | OP ---
DATE OF SURGERY: 10/14/2021 PREOPERATIVE DIAGNOSES: 1. Lumbar radiculopathy from herniated disc, L5-S1. 2. Status post 3 previous surgeries at this level. POSTOPERATIVE DIAGNOSES: 1. Lumbar radiculopathy from herniated disc, L5-S1. 2. Status post 3 previous surgeries at this level. OPERATIONS PERFORMED: 1. Transforaminal microdecompression and exploration L5-S1 right with microdiscectomy L5-S1 right, and decompression of dura and nerve root. 2. Posterior instrumentation L5-S1 with Republic system. 3. Posterolateral fusion, L5-S1. The operation was done with EMG monitoring, SSEP monitoring, fluoroscopy, microscopic dissection, BrainLAB guidance. SURGEON: Yasir Ashley M.D. LEASE PURCHASE DRIVER: FRANCISCO JAVIER Stewart assisted with the surgery. She assisted with the exposure, the microdecompression and discectomy, as well as the instrumentation, fusion and closure. OPERATIVE INDICATIONS: The patient is a pleasant 41-year-old who has problems with intractable back and right leg pain. She has a large calcified herniated disc at L5-S1 and I operated on her several months ago and decompressed this region and she initially did well, but now she has developed increasing pain and the pain was unrelenting and severe. On imaging studies, there is disc bulging at L5-S1 on the right as well as foraminal narrowing at L5-S1 on the right and I recommended lumbar microsurgery. Since this was her fourth operation, I elected to instrument her and fuse her at this level. I spoke with her about the surgery, the risks, the technique. She understood and wished to go ahead. DESCRIPTION OF PROCEDURE: Following general endotracheal anesthesia, the patient was positioned prone on the Se table. Her lumbar region was prepped and draped in the standard fashion. NAM hose and A-V Impulse boots were applied for DVT prophylaxis. The microscope was draped, fluoroscopy was draped and brought in the field. The monitoring was established. Ancef 2 grams was given less than one hour prior to initiation of the surgery. Using fluoroscopic guidance, I attached the BrainLAB Star to the L4 spinous process and initialized the BrainLAB system. I then made a linear incision, which incorporated much of her previous incision, but carried this further superiorly and inferiorly. I dissected down through skin and subcutaneous tissue, reflected the paraspinal muscles bilaterally and placed self-retaining retractors on the left side, then I drilled into the posterior aspect at the pedicle of L5 and S1. I passed the black ball, followed by ball-tipped probe, followed by tap, followed by screw placement. During this time, I excoriated the transverse processes and aspirated 20 mL of bone marrow from the left iliac crest. I mixed this with allograft bone and placed into the left gutter. I placed both screws using the Republic system. The inferior screw was a 6.5 x 40 and superior screw was a 6.5 x 45. I placed a 45 mm terra and placed the nuts. I then went to the right side. On this side, I worked diligently and removed a great deal of scar tissue, exposing the previous hemilaminotomy site. I then drilled down through the bone overlying the foramen and enlarged the foramen. I could visualize the L5 root as it rounded the pedicle and moved laterally. It was tightly compressed from both bone spur which was knuckled down on it and calcified disc which was pushing superiorly. I removed this material and fully decompressed the root. I went medially and performed a discectomy with two pituitary rongeurs and as I worked in this region, I was able to well decompress the entire region. I did perform foraminotomy. At this point then, I had excellent decompression. I drilled into the posterior aspect of the pedicles of L5 and S1 on the right side and I again passed the ball tip probe, tap and placed the screws, all of which on both sides I used stimulated EMG monitoring. There were no problems with the screw placement. There was no firing of the nerve roots during screw placement to indicate any kind of breach of the pedicles. I then placed another 45 mm terra, placed the nuts and torqued both sides sequentially. I then irrigated copiously with antibiotic solution. I closed the wound in layers with absorbable suture and the skin was closed with skin rodrigue. I felt the surgery went very well and the patient was taken to recovery room in excellent condition. I was quite pleased with the surgery. ROHINI DR: Jose Guadalupe TID: [id number] HITESH
[2021-10-16 03:05] VITALS: BP 95/65
[2021-10-16] MEDS: POTASSIUM CL 20MEQ D5-0.45NACL 1,000 ML IV SCH (05:18)
[2021-10-16 07:00] VITALS: BP 112/67
[2021-10-16] MEDS: CYCLOBENZAPRINE 10 MG TABLET. PO SCH ×3 (08:00→21:26)
[2021-10-16] MEDS: oxyCODONE/APAP 7.5/325 1 TAB TABLET PO PRN ×3 (08:01→17:55)
[2021-10-16] MEDS: PARoxetine 20 MG TABLET PO SCH (08:01)
[2021-10-16] MEDS: LEFLUNOMIDE 10 MG TABLET. PO SCH (08:01)
[2021-10-16] MEDS: DOCUSATE SODIUM 100 MG CAPSULE. PO SCH ×2 (08:01→21:00)
[2021-10-16] MEDS: PANTOPRAZOLE 40 MG TABLET.DR. PO SCH (08:01)
[2021-10-16] MEDS: CETIRIZINE HCL 10 MG TABLET. PO SCH (08:01)
[2021-10-16] MEDS: METOPROLOL TART IMMED RELEASE 25 MG TABLET. PO SCH (09:00)
[2021-10-16 11:00] VITALS: BP 116/83
[2021-10-16 15:00] VITALS: BP 107/64
[2021-10-16] MEDS: methylPREDNISolone 4 MG TABLET. PO SCH ×3 (15:26→21:27)
--- NOTE | 2021-10-16 16:25 | PDOC ---
PROGRESS NOTES Date of Service DATE: 10/16/21 TIME: 16:21 Subjective Subjective POD #2 S/P decompression L5-S1 right with posterior instrumentation and fusion c/o incisional and right leg pain has been up ambulating with PT Objective Objective Vital Signs Date Time Temp Pulse Resp B/P (MAP) Pulse Ox O2 Delivery O2 Flow Rate FiO2 10/16/21 15:00 98.1 100 18 107/64 (78) 96 Room Air 98.1 10/14/21 20:00 2.0 Intake and Output 10/16/21 07:00 Intake Total 280 ml Output Total 250 ml Balance 30 ml Intake Oral 280 ml Output Urine Total 250 ml # Voids 9 Physical Exam General: Alert, Oriented X3, Cooperative MUSCULOSKELETAL: Other (EATON) Neuro: Normal speech Skin: Other (Dressing dry and intact, flat) Plan Plan of Care encouraged increased activity as tolerated PT Brace when up possibly home tomorrow with Home health tomorrow medrol dose pack Comment Review of Relevant I have reviewed the following items andreia (where applicable) has been applied. Medications Current Medications Fentanyl Citrate (Fentanyl 2ml Vial) 25 mcg PRN Q5MIN PRN IVP MILD PAIN 1-3; Start 10/14/21 at 06:00; Stop 10/15/21 at 05:59; Status DC Fentanyl Citrate (Fentanyl 2ml Vial) 50 mcg PRN Q5MIN PRN IVP MODERATE PAIN 4-6 Last administered on 10/14/21at 15:13; Start 10/14/21 at 06:00; Stop 10/15/21 at 06:00; Status DC Morphine Sulfate (Morphine Sulfate) 1 mg PRN Q10MIN PRN IVP SEVERE PAIN 7-10; Start 10/14/21 at 06:00; Stop 10/15/21 at 06:00; Status DC Ringer's Solution 1,000 ml @ 30 mls/hr Q24H IV Last administered on 10/14/21at 14:45; Start 10/14/21 at 06:00; Stop 10/14/21 at 17:59; Status DC Hydromorphone HCl (Dilaudid) 0.5 mg PRN Q10MIN PRN IVP SEVERE PAIN 7-10, 2nd CHOICE Last administered on 10/14/21at 15:51; Start 10/14/21 at 06:00; Stop 10/15/21 at 06:00; Status DC Prochlorperazine Edisylate (Compazine) 5 mg PACU PRN PRN IVP NAUSEA, MRX1; Start 10/14/21 at 06:00; Stop 10/15/21 at 06:00; Status DC Cefazolin Sodium/ Dextrose 50 ml @ 100 mls/hr 1X PREOP PRN IV PRIOR TO PROCEDURE Last administered on 10/14/21at 08:59; Start 10/14/21 at 06:00; Stop 10/14/21 at 18:00; Status DC Cefazolin Sodium 1 gm/Sodium Chloride 1,000 ml @ 1,000 mls/hr 1X ONCE IRR Last administered on 10/14/21at 10:04; Start 10/14/21 at 06:00; Stop 10/14/21 at 06:59; Status DC Scopolamine (Transderm-Scop) 1 patch 1X ONCE TD Last administered on 10/14/21at 06:52; Start 10/14/21 at 06:30; Stop 10/14/21 at 06:32; Status DC Gelatin (Gelfoam Size 100) 1 each STK-MED ONCE .ROUTE Last administered on 10/14/21at 10:04; Start 10/14/21 at 06:38; Stop 10/14/21 at 06:38; Status DC Bupivacaine HCl/ Epinephrine Bitart (Sensorcain-Epi 0.5% Kit) 30 ml STK-MED ONCE .ROUTE Last administered on 10/14/21at 10:04; Start 10/14/21 at 06:38; Stop 10/14/21 at 06:39; Status DC Ketorolac Tromethamine (Toradol Im) 60 mg STK-MED ONCE .ROUTE Last administered on 10/14/21at 10:04; Start 10/14/21 at 06:38; Stop 10/14/21 at 06:39; Status DC Thrombin 20,000 unit STK-MED ONCE TP Last administered on 10/14/21at 10:04; Start 10/14/21 at 06:38; Stop 10/14/21 at 06:39; Status DC Propofol (Diprivan) 200 mg STK-MED ONCE IV ; Start 10/14/21 at 04:52; Stop 10/14/21 at 06:53; Status DC Lidocaine HCl (Lidocaine Pf 2% Vial) 5 ml STK-MED ONCE .ROUTE ; Start 10/14/21 at 04:52; Stop 10/14/21 at 06:53; Status DC Ondansetron HCl (Zofran) 4 mg STK-MED ONCE .ROUTE ; Start 10/14/21 at 04:52; Stop 10/14/21 at 06:53; Status DC Phenylephrine HCl (Cali-Synephrine Inj) 10 mg STK-MED ONCE .ROUTE ; Start 10/14/21 at 04:52; Stop 10/14/21 at 06:53; Status DC Propofol 50 ml @ As Directed STK-MED ONCE IV ; Start 10/14/21 at 04:52; Stop 10/14/21 at 06:53; Status DC Dexamethasone Sodium Phosphate (Decadron) 4 mg STK-MED ONCE .ROUTE ; Start 10/14/21 at 04:52; Stop 10/14/21 at 06:53; Status DC Sevoflurane (Ultane) 60 ml STK-MED ONCE IH ; Start 10/14/21 at 04:52; Stop 10/14/21 at 06:53; Status DC Fentanyl Citrate (Fentanyl 2ml Vial) 100 mcg STK-MED ONCE .ROUTE ; Start 10/14/21 at 04:53; Stop 10/14/21 at 06:53; Status DC Midazolam HCl (Versed) 2 mg STK-MED ONCE .ROUTE ; Start 10/14/21 at 04:53; Stop 10/14/21 at 06:54; Status DC Remifentanil HCl (Ultiva) 1 mg STK-MED ONCE IV ; Start 10/14/21 at 04:53; Stop 10/14/21 at 06:54; Status DC Rocuronium Dimock (Zemuron) 50 mg STK-MED ONCE .ROUTE ; Start 10/14/21 at 04:55; Stop 10/14/21 at 06:55; Status DC Glycopyrrolate (Robinul) 1 mg STK-MED ONCE .ROUTE ; Start 10/14/21 at 04:55; Stop 10/14/21 at 06:55; Status DC Neostigmine Dimock (Neostigmine Methylsulfate) 5 mg STK-MED ONCE .ROUTE ; Start 10/14/21 at 04:55; Stop 10/14/21 at 06:55; Status DC Hydrocortisone Sodium Succinate (Solu-CORTEF) 100 mg STK-MED ONCE .ROUTE ; Start 10/14/21 at 08:41; Stop 10/14/21 at 08:41; Status DC Ketamine HCl (Ketamine) 50 mg STK-MED ONCE .ROUTE ; Start 10/14/21 at 07:25; Stop 10/14/21 at 09:25; Status DC Propofol 50 ml @ As Directed STK-MED ONCE IV ; Start 10/14/21 at 08:16; Stop 10/14/21 at 10:16; Status DC Remifentanil HCl (Ultiva) 1 mg STK-MED ONCE IV ; Start 10/14/21 at 09:37; Stop 10/14/21 at 11:38; Status DC Cefazolin Sodium (Ancef) 1 gm STK-MED ONCE IVP ; Start 10/14/21 at 10:26; Stop 10/14/21 at 12:26; Status DC Propofol 100 ml @ As Directed STK-MED ONCE IV ; Start 10/14/21 at 12:34; Stop 10/14/21 at 12:35; Status DC Fentanyl Citrate (Fentanyl 2ml Vial) 100 mcg STK-MED ONCE .ROUTE ; Start 10/14/21 at 11:47; Stop 10/14/21 at 13:47; Status DC Cyclobenzaprine HCl (Flexeril) 10 mg TID PO Last administered on 10/16/21at 13:05; Start 10/14/21 at 21:00 Leflunomide (Arava) 20 mg DAILY PO Last administered on 10/16/21at 08:01; Start 10/15/21 at 09:00 Metoprolol Tartrate (Lopressor) 25 mg DAILY PO Last administered on 10/15/21at 08:28; Start 10/15/21 at 09:00 Pantoprazole Sodium (Protonix) 40 mg DAILYAC PO Last administered on 10/16/21at 08:01; Start 10/15/21 at 07:30 Paroxetine HCl (Paxil) 20 mg DAILY PO Last administered on 10/16/21at 08:01; Start 10/15/21 at 09:00 Non-Formulary Medication (Adalimumab (Humira)) 1 syr Q2WKS SQ ; Start 10/28/21 at 09:00; Status UNV Cetirizine HCl (ZyrTEC) 10 mg DAILY PO Last administered on 10/16/21at 08:01; Start 10/15/21 at 09:00 Fentanyl Citrate (Fentanyl 2ml Vial) 50 mcg PRN Q2HR PRN IVP PAIN Last administered on 10/16/21at 00:02; Start 10/14/21 at 14:00 Acetaminophen (Tylenol) 650 mg PRN Q6HRS PRN PO MILD PAIN / TEMP > 100.3'F; Start 10/14/21 at 14:00 Al Hydroxide/Mg Hydroxide (Mylanta Plus Xs) 30 ml PRN Q3HRS PRN PO HEARTBURN / GAS; Start 10/14/21 at 14:00 Calcium Carbonate/ Glycine (Tums) 500 mg PRN Q3HRS PRN PO INDIGESTION; Start 10/14/21 at 14:00 Diphenhydramine HCl (Benadryl) 25 mg PRN Q6HRS PRN PO ITCHING; Start 10/14/21 at 14:00 Naloxone HCl (Narcan) 0.1 mg PRN Q2MIN PRN IV SEE COMMENTS; Start 10/14/21 at 14:00 Sodium Chloride (Normal Saline Flush) 3 ml QSHIFT PRN IV AFTER MEDS AND BLOOD D RAWS; Start 10/14/21 at 14:00 Potassium Chloride/Dextrose/ Sod Cl 1,000 ml @ 75 mls/hr [id number] IV Last administered on 10/14/21at 19:41; Start 10/14/21 at 14:00 Docusate Sodium (Colace) 100 mg BID PO Last administered on 10/16/21at 08:01; Start 10/14/21 at 21:00 Magnesium Hydroxide (Milk Of Magnesia) 2,400 mg PRN Q12HR PRN PO CONSTIPATION; Start 10/14/21 at 14:00 Ondansetron HCl (Zofran) 4 mg PRN Q6HRS PRN IVP NAUESA, 1ST CHOICE Last administered on 10/15/21at 20:52; Start 10/14/21 at 14:00 Cefazolin Sodium (Ancef) 1 gm Q8HRS IVP Last administered on 10/15/21at 05:26; Start 10/14/21 at 17:00; Stop 10/15/21 at 06:01; Status DC Oxycodone/ Acetaminophen (Percocet 7.5/ 325) 1 tab PRN Q4HRS PRN PO MODERATE PAIN; Start 10/14/21 at 14:00 Oxycodone/ Acetaminophen (Percocet 7.5/ 325) 2 tab PRN Q4HRS PRN PO SEVERE PAIN Last administered on 10/16/21at 13:05; Start 10/14/21 at 14:00 Hydromorphone HCl (Dilaudid) 2 mg STK-MED ONCE .ROUTE ; Start 10/14/21 at 15:23; Stop 10/14/21 at 15:23; Status DC Neomycin/ Polymyxin/ Bacitracin (Triple Antibiotic Ointment) 1 pkt STK-MED ONCE TP ; Start 10/14/21 at 15:40; Stop 10/14/21 at 15:40; Status DC Hydroxyzine HCl (Atarax) 25 mg PRN QID PRN PO ITCHING Last administered on 10/14/21at 18:20; Start 10/14/21 at 17:45 Alprazolam (Xanax) 0.5 mg 1X ONCE PO Last administered on 10/14/21at 19:41; Start 10/14/21 at 19:15; Stop 10/14/21 at 19:16; Status DC Cefazolin Sodium (Ancef) 2 gm STK-MED ONCE IVP ; Start 10/14/21 at 10:30; Stop 10/15/21 at 08:59; Status DC Methylprednisolone (Medrol) 8 mg BID@1400,2100 PO Last administered on 10/16/21at 15:26; Start 10/16/21 at 14:00; Stop 10/16/21 at 21:01 Methylprednisolone (Medrol) 4 mg BID@1600,1800 PO ; Start 10/16/21 at 16:00; Stop 10/16/21 at 18:01 Methylprednisolone (Medrol) 4 mg TIDPC PO ; Start 10/17/21 at 08:30; Stop 10/17/21 at 17:31 Methylprednisolone (Medrol) 8 mg QHS PO ; Start 10/17/21 at 21:00; Stop 10/17/21 at 21:01 Methylprednisolone (Medrol) 4 mg QIDAFTMEAL PO ; Start 10/18/21 at 09:00; Stop 10/18/21 at 21:01 Methylprednisolone (Medrol) 4 mg TID PO ; Start 10/19/21 at 09:00; Stop 10/19/21 at 21:01 Methylprednisolone (Medrol) 4 mg BID PO ; Start 10/20/21 at 09:00; Stop 10/20/21 at 21:01 Methylprednisolone (Medrol) 4 mg DAILY PO ; Start 10/21/21 at 09:00; Stop 10/21/21 at 09:01 Active Scripts Active Percocet 7.5-325 Mg Tablet (Oxycodone/Acetaminophen) 1 Each Tablet 1 Tab PO PRN BID PRN MDD 2 Tablet(s) 30 Days Reported Vistaril (Hydroxyzine Pamoate) 25 Mg Capsule 25 Mg PO QID Claritin (Loratadine) 10 Mg Tab.rapdis 10 Mg PO DAILY Metoprolol Tartrate 25 Mg Tablet 25 Mg PO DAILY Leflunomide 20 Mg Tablet 20 Mg PO DAILY Paroxetine Hcl 20 Mg Tablet 20 Mg PO DAILY Cyclobenzaprine Hcl 10 Mg Tablet 1 Tab PO TID Humira (Adalimumab) 40 Mg/0.8 Ml Pen.ij.kit 1 Syr SQ Q2WKS Protonix (Pantoprazole Sodium) 40 Mg Tablet.dr 40 Mg PO DAILYAC Vitals/I & O Vital Sign - Last 24 Hours 10/15/21 10/15/21 10/15/21 10/15/21 17:09 17:39 19:00 20:00 Temp 97.9 97.9 Pulse 91 Resp 20 B/P (MAP) 92/61 (71) Pulse Ox 97 97 96 O2 Delivery Room Air Room Air Room Air Room Air 10/15/21 10/15/21 10/16/21 10/16/21 20:52 23:00 03:05 07:00 Temp 99.1 99.3 97.9 99.1 99.3 97.9 Pulse 99 109 102 Resp 18 20 16 B/P (MAP) 103/68 (80) 95/65 (75) 112/67 (82) Pulse Ox 96 100 99 96 O2 Delivery Room Air Room Air Room Air Room Air 10/16/21 10/16/21 10/16/21 10/16/21 07:55 08:01 08:30 09:00 Pulse 102 B/P (MAP) 112/67 O2 Delivery Room Air Room Air Room Air 10/16/21 10/16/21 10/16/21 10/16/21 11:00 13:05 13:30 15:00 Temp 98.0 98.1 98.0 98.1 Pulse 101 100 Resp 18 18 B/P (MAP) 116/83 (94) 107/64 (78) Pulse Ox 94 96 O2 Delivery Room Air Room Air Room Air Room Air Intake and Output 0 10/15/21 10/15/21 10/16/21 15:00 23:00 07:00 Intake Total 280 ml Output Total 250 ml Balance 280 ml -250 ml Justifications for Admission Other Justification PRANEETH MACE RN LICENSED PRACTICAL Oct 16, 2021 16:25
--- NOTE | 2021-10-16 18:00 | NUR ---
Ambulated in hallways with walker accompanied by mother. Tolerating it well.
[2021-10-16 19:00] VITALS: BP 109/75
--- NOTE | 2021-10-16 21:28 | NUR ---
Nursing note: Yocasta would not scan, "unknown barcode."
[2021-10-17 03:21] VITALS: BP 95/71
[2021-10-17] MEDS: oxyCODONE/APAP 7.5/325 1 TAB TABLET PO PRN ×2 (03:30→09:04)
[2021-10-17 03:32] VITALS: BP 117/72
[2021-10-17 03:33] VITALS: BP 97/57
[2021-10-17 07:00] VITALS: BP 108/64
[2021-10-17] MEDS: PARoxetine 20 MG TABLET PO SCH (08:51)
[2021-10-17] MEDS: PANTOPRAZOLE 40 MG TABLET.DR. PO SCH (08:51)
[2021-10-17] MEDS: CYCLOBENZAPRINE 10 MG TABLET. PO SCH ×2 (08:52→14:54)
[2021-10-17] MEDS: methylPREDNISolone 4 MG TABLET. PO SCH ×2 (08:52→12:36)
[2021-10-17] MEDS: CETIRIZINE HCL 10 MG TABLET. PO SCH (08:52)
[2021-10-17] MEDS: LEFLUNOMIDE 10 MG TABLET. PO SCH (08:53)
[2021-10-17] MEDS: DOCUSATE SODIUM 100 MG CAPSULE. PO SCH (08:53)
[2021-10-17] MEDS: METOPROLOL TART IMMED RELEASE 25 MG TABLET. PO SCH (08:56)
[2021-10-17 11:00] VITALS: BP 103/71
[2021-10-17] MEDS ORDERED: DOCU-109 PO (13:49)
--- NOTE | 2021-10-17 13:52 | SNU/HH DC ---
DISCHARGE WITH HOME HEALTH DISCHARGE INFORMATION: Discharge Date: Oct 17, 2021 Final Diagnosis: m51.17 Condition on Discharge: Stable HOME HEALTH: Face to Face: I certify this patient is under my care and that I, or a nurse practitioner or physician's power plant assistant working with me, had a face to face encounter that meets the physician face to face encounter requirements with this patient on 10/17/21 Medical Complications: HTN Shelter For: Pain Management RN For Eval/Treatment: Yes Physical Therapy For: Evalulation/Treatment Pt Meets Homebound Status: Limited distance walking POST DISCHARGE ORDERS: Activity Instructions for Disc: Activity as tolerated, Avoid exertion, Other, see below (no lifting > 10 lbs, brace on when up) Weight Bearing Status after Di: As tolerated Bathing Instructions: No Tub Bath until see Wound/Incision Care: Ice to area for comfort, Keep wound/cast CDI, Change dressing, Other, see below Other wound/incision instructi: dressing changes as needed, rodrigue FOLLOW-UP: PCP to follow Home Health: Dr. Hawkins [phone] Follow up with: Dr. Hawkins in 2 weeks TREATMENT/EQUIPMENT ORDERS: Adaptive Equipment Issued: None CERTIFICATION STATEMENT: Certification Statement: Certification Statement: Based on the above finding, I certify that this patient is confined to the home and needs intermittent alf care, physical therapy and/or speech therapy, or continues to need occupational therapy.~ This patient is under my care, and I have initiated the establishment of the plan of care.~ This patient will be followed by myself or a community physician who will periodically review the plan of care. Home Meds Active Scripts Oxycodone/Apap 7.5-325 (PERCOCET 7.5-325 MG TABLET ) 1 Each Tablet, 1 TAB PO PRN BID PRN for PAIN MDD 2 Tablet(s) for 30 Days, #60 TAB 0 Refills Prov:LEE CA MD 09/10/21 Reported Medications Hydroxyzine Pamoate (VISTARIL) 25 Mg Capsule, 25 MG PO QID for itching, CAP 10/14/21 Loratadine (CLARITIN) 10 Mg Tab.rapdis, 10 MG PO DAILY for , TAB 10/09/21 Metoprolol Tartrate (METOPROLOL TARTRATE) 25 Mg Tablet, 25 MG PO DAILY for FOR HYPERTENSION, #60 TAB 0 Refills 10/09/21 Leflunomide (LEFLUNOMIDE) 20 Mg Tablet, 20 MG PO DAILY for , TAB 10/09/21 Paroxetine Hcl (PAROXETINE HCL) 20 Mg Tablet, 20 MG PO DAILY for , TAB 10/09/21 Cyclobenzaprine Hcl (CYCLOBENZAPRINE HCL) 10 Mg Tablet, 1 TAB PO TID for spasms, #90 TAB 04/10/21 Adalimumab (HUMIRA) 40 Mg/0.8 Ml Pen.ij.kit, 1 SYR SQ Q2WKS for arthritis, #6 SYR 3 Refills 12/12/20 Pantoprazole Sodium (PROTONIX ) 40 Mg Tablet.dr, 40 MG PO DAILYAC for GERD, TAB 07/02/20 Discontinued Reported Medications Triamterene/Hydrochlorothiazid (TRIAMTERENE-HCTZ 37.5-25 MG CP) 1 Each Capsule, 1 CAP PO DAILY for HTN, #30 CAP 5 Refills 05/09/21 BARTOLO HAWKINS MD Oct 17, 2021 13:52
[2021-10-17 15:00] VITALS: BP 97/62
--- NOTE | 2021-10-17 16:15 | PATHOLOGY ---
[facility] Accession Number: [id number] . 01 Material submitted: . vertebral column - LUMBAR DISC AND DECOMPRESSION . 01 Clinical history: . RECCURENT LUMBAR HERNIATED DISC WITH RADICULOPATHY VERTERBROGENIC LOW BACK PAIN LUMBAR MICRODISCECTOMY L5-S1. RE-OP ANT, POST, INTERBODY FUSION L5-S1, POST LATERAL FUSION POST INSTR L5-S1 . 02 Diagnosis: Segments of fibrocartilaginous and fibroadipose tissue and bone, lumbar disc and decompression: - Degenerative changes of fibrocartilaginous tissue. (JPM:halley; 10/17/2021) S 10/17/2021 1420 Local . 02 Comment: There is no evidence of an acute inflammatory process or malignancy. (JPM:halley; 10/17/2021) . 02 Electronically signed: . Familia Parekh MD, Pathologist NPI- [id number] . 01 Gross description: . The specimen is received in formalin, labeled "[place], [place], lumbar disc and decompression". Received are multiple segments of pale gomez to pink-gomez fibrous tissue admixed with fragments of gritty bone measuring 1.8 x 1.8 x 0.3 cm in aggregate dimensions. The specimen is submitted entirely in cassette A1, following light decalcification. ([facility]; 10/16/2021) [facility] 10/16/2021 1203 Local . 02 Pathologist provided ICD-10: M51.26, M54.16 . 02 CPT . 219189, [id number] Specimen Comment: A courtesy copy of this report has been sent to [phone], [phone] Specimen Comment: [id number] Specimen Comment: Report sent to / DR MENDEZ Performed at: 01 [facility] [address], [place], [place] [id number] MD Jose G Cramer MD Phone: [phone] Performed at: 02 [facility] [address] [place], [place] [id number] MD Familia Parekh MD Phone: [phone]
--- NOTE | 2021-10-17 16:45 | NUR ---
Discharge instructions given with dressing supplies. Demonstrated pt's spouse how to change dressing. Verbalized understanding. Pt discharged home escorted out by w/c.
[2021-10-17] MEDS ORDERED: methylPREDNISolone 4 MG TABLET. PO SCH (21:00)
[2021-10-18] MEDS ORDERED: methylPREDNISolone 4 MG TABLET. PO SCH (09:00)
--- NOTE | 2021-10-18 17:11 | DS ---
DATE OF DISCHARGE: 10/17/2021 DISCHARGE DIAGNOSES: Lumbar radiculopathy from herniated disk, L5-S1, status post 3 previous surgeries at this level. OPERATIONS PERFORMED: 1. Transforaminal microdecompression and exploration of L5-S1, right with microdiskectomy L5-S1 right in decompression of dura and nerve root. 2. Posterior instrumentation, L5-S1 with [place] system. 3. Posterolateral fusion, L5-S1. HISTORY OF PRESENT ILLNESS: The patient is a pleasant 41-year-old who has problems with intractable back and right leg pain. She has a large calcified herniated disk at L5-S1 and I operated on her several months ago and decompress this region and she initially did well, but has developed recurring symptoms with increasing pain that was unrelenting and severe. On imaging studies, there was increased disk bulging at L5-S1 on the right as well as neural foraminal narrowing at L5-S1 on the right and I recommended lumbar microsurgery. Since this was her fourth operation, I elected to instrument her and fuse her at this level as well. I spoke with her about the surgery, the risk and the technique and she understood and wished to go ahead. HOSPITAL COURSE: She was admitted to the floor postoperatively where she has done well. She has been up ambulating in the room and in the halls. Physical therapy was initiated and instruction was given to her regarding her activities. She is in good condition to discharge home with home health services. DISCHARGE MEDICATIONS: She will resume her medications per the MRAD. DISCHARGE INSTRUCTIONS: She was instructed regarding incision care, activity restrictions and expectations for the next several weeks. She will follow up in our office in 2 weeks. She understands to call with any questions or concerns. JOSH DR: Angela TID: [id number]
[2021-10-19] MEDS ORDERED: methylPREDNISolone 4 MG TABLET. PO SCH (09:00)
[2021-10-20] MEDS ORDERED: methylPREDNISolone 4 MG TABLET. PO SCH (09:00)
[2021-10-21] MEDS ORDERED: methylPREDNISolone 4 MG TABLET. PO SCH (09:00)
[2021-10-28] MEDS ORDERED: NON FORMULARY ITEM (Adalimumab (Humira) 1 SYR) SQ SCH (09:00)
== END 2021-10-17 16:45 | disposition home health service (06) | DRG 460 ==
LOC: OPSVCIP 06:06 → 4 NORTH 16:08
PROVIDERS: ADMIT Neurological Surgery; ATTEND Neurological Surgery
PROC: 0SG30K1 Fusion of Lumbosacral Joint with Nonautologous Tissue Substitute, Posterior Approach, Posterior Column, Open Approach (ICD-10-PCS; principal; 2021-10-15)
PROC: 0SB40ZZ Excision of Lumbosacral Disc, Open Approach (ICD-10-PCS; 2021-10-15)
PROC: 01NB0ZZ Release Lumbar Nerve, Open Approach (ICD-10-PCS; 2021-10-15)
PROC: 01NR0ZZ Release Sacral Nerve, Open Approach (ICD-10-PCS; 2021-10-15)
PROC: 4A11X4G Monitoring of Peripheral Nervous Electrical Activity, Intraoperative, External Approach (ICD-10-PCS; 2021-10-15)
DX: M51.27 Other intervertebral disc displacement, lumbosacral region (principal); M51.17 Intervertebral disc disorders with radiculopathy, lumbosacral region; M77.9 Enthesopathy, unspecified; M79.7 Fibromyalgia; Z82.49 Family history of ischemic heart disease and other diseases of the circulatory system; Z83.3 Family history of diabetes mellitus; Z87.442 Personal history of urinary calculi; Z90.49 Acquired absence of other specified parts of digestive tract; N83.209 Unspecified ovarian cyst, unspecified side; M19.90 Unspecified osteoarthritis, unspecified site; Z88.0 Allergy status to penicillin; Z88.8 Allergy status to other drugs, medicaments and biological substances; Z91.040 Latex allergy status; G43.909 Migraine, unspecified, not intractable, without status migrainosus; Z88.2 Allergy status to sulfonamides
CPT/HCPCS: 36415; 72131; 76000; 80048; 81025; 85025; 86850; 86900; 86901; 88304; 88311; A4314; A4364; A4930; A6254; A6257; A6258; C1713; J0690; J1100; J1170; J1720; J1885; J2250; J2370; J2405; J2704; J2710; J3010; J3480; J3490; J7030; J7120; J7509; 97110-GP; 97116-GP; 97530-GO; 97530-GP; 97535-GO; G0378